=== PATIENT | female | born 1940 | race Asian ===

== ENCOUNTER 2017-01-24 08:51 | Emergency (ER) | payer MEDICARE, MEDICAID ==
[2017-01-24 09:01] VITALS: BP 162/64
--- NOTE | 2017-01-24 10:01 | RAD ---
HISTORY: Cough for 3 weeks COMPARISONS: October 06, 2012 VIEWS: 4: Frontal dual-energy and lateral views of the chest. FINDINGS: CARDIOMEDIASTINAL SILHOUETTE: The aorta is tortuous. The cardiomediastinal silhouette is otherwise unremarkable. ALBA: The alba are normal. PLEURA: The costophrenic angles are sharp. No pleural abnormalities are noted. LUNG PARENCHYMA: The lungs are clear. ABDOMEN: The upper abdomen is clear. There is no subphrenic gas. BONES AND SOFT TISSUES: No bone or soft tissue abnormalities are noted. OTHER: None. IMPRESSION: NO ACTIVE CARDIOPULMONARY DISEASE.
--- NOTE | 2017-01-24 10:10 | UC ---
Respiratory Complaint HPI - HPI Summary HPI Summary: 3 weeks of cough--no fevers chills, night sweats, no sputum, no cp or SOB, no orthopnea - History of Current Complaint Chief Complaint: UCRespiratory Stated Complaint: COUGH Time Seen by Provider: 01/24/17 08:56 Hx Obtained From: Patient, Family/Corporate Aircraft Mechanic ?: No Onset/Duration: Gradual Onset, Lasting Weeks - 3 Timing: Constant Severity Initially: Mild Severity Currently: Mild Pain Intensity: 0 Pain Scale Used: 0-10 Numeric Character: Cough: Nonproductive Aggravating Factors: Nothing Alleviating Factors: Nothing Associated Signs And Symptoms: Positive: URI - Allergies/Home Medications Allergies/Adverse Reactions: Allergies Allergy/AdvReac Type Severity Reaction Status Date / Time No Known Allergies Allergy Verified 01/24/17 08:57 PMH/Surg Hx/FS Hx/Imm Hx Previously Healthy: No Cardiovascular History: Hypertension, Other Other Cardiovascular History: Unsure what kind of valve issue Other History Of: Hepatitis C - Surgical History Surgical History: Yes Surgery Procedure, Year, and Place: CATARACT - Family History Known Family History: Positive: None - Social History Occupation: Retired Lives: With Family Alcohol Use: None Substance Use Type: None Smoking Status (MU): Never Smoked Tobacco Review of Systems Constitutional: Negative Skin: Negative Eyes: Negative ENT: Negative Respiratory: Cough Cardiovascular: Negative Gastrointestinal: Negative Genitourinary: Negative Motor: Negative Neurovascular: Negative Musculoskeletal: Negative Neurological: Negative Psychological: Negative Is Patient Immunocompromised?: No All Other Systems Reviewed And Are Negative: Yes Physical Exam Triage Information Reviewed: Yes Appearance: Well-Appearing, No Pain Distress, Well-Nourished Vital Signs: Initial Vital Signs Temp 97 F 01/24/17 09:00 Pulse 49 01/24/17 09:00 Resp 16 01/24/17 09:00 BP 162/64 01/24/17 09:00 Pulse Ox 100 01/24/17 09:00 Vital Signs Reviewed: Yes Eye Exam: Normal Eyes: Positive: Conjunctiva Clear ENT Exam: Normal ENT: Positive: Normal ENT inspection, Hearing grossly normal, TMs normal. Negative: Nasal congestion, Nasal drainage, Trismus, Muffled/hoarse voice Dental Exam: Normal Neck exam: Normal Neck: Positive: Supple, Nontender, No Lymphadenopathy Respiratory Exam: Normal Respiratory: Positive: Chest non-tender, Lungs clear, Normal breath sounds, No respiratory distress, No accessory muscle use Cardiovascular Exam: Normal Cardiovascular: Positive: Pulses Normal, Brisk Capillary Refill, Bradycardia, Other:. Negative: No Murmur Musculoskeletal Exam: Normal Musculoskeletal: Positive: Strength Intact, ROM Intact, No Edema Neurological Exam: Normal Neurological: Positive: Alert, Muscle Tone Normal Psychological Exam: Normal Skin Exam: Normal UC Diagnostic Evaluation - Laboratory O2 Sat by Pulse Oximetry: 100 - Radiology Xray Interpretation: No Acute Changes Radiology Interpretation Completed By: ED Physician, Radiologist - EKG Cardiac Rate: Bradycardia Cardiac Rhythm: Sinus: Normal Ectopy: None ST Segment: Normal Respiratory Course/Dx - Course Course Of Treatment: rest increase fluids, tessalon, follow with PCP in 2-3 days or to ed should symptoms worsen - Differential Dx/Diagnosis Differential Diagnosis/HQI/PQRI: Bronchitis, CHF, Lower Resp Infection, SARS, Sinusitis Provider Diagnoses: Acute cough Discharge - Discharge Plan Condition: Stable Disposition: HOME Prescriptions: Benzonatate CAP* [Tessalon 100 MG CAP*] 100 mg PO TID PRN #30 cap PRN Reason: Cough Patient Education Materials: Benzonatate (By mouth), Acute Cough (ED) Referrals: Carolina Copeland MD [Primary Care Provider] - 3 Days
== END 2017-01-24 10:28 | disposition home or self-care (01) ==
LOC: UCEAST 08:51
DX: R05 Cough (principal); I10 Essential (primary) hypertension; B19.20 Unspecified viral hepatitis C without hepatic coma
CPT/HCPCS: 71020; 93005; 99212; G0463

== ENCOUNTER 2017-11-16 13:34 | Emergency (ER) | payer MEDICARE, MEDICAID ==
--- OUTSIDE RECORDS SUMMARY | 2017-11-16 13:43 | XMS REPORT ---
:1940 External Reference #:[id number] Author Organization [employer] Address [address] [place] [address] Phone [phone] Care Team Providers Name Role Phone Carolina Copeland MD Primary Care Physician Unavailable Payers Type Date Identification Numbers Payment Provider Subscriber Medicare Primary Effective: Policy Number: [id number] Medicare Ngim Mao 2012 PayID: [id number] [address] [place] [address] [facility] Part [facility] Policy Number: [id number] Medicaid Ngim Mao PayID: [id number] [address] [place] [address] Problems Date Description Provider Status Onset: 09/22/2012 Essential hypertension Meagan Bynum M.D. Active Onset: 01/31/2016 Localized, primary osteoarthritis America Duran M.D. Active Note: knee Onset: 10/21/2016 Osteopenia Carolina Copeland M.D. Active Onset: 10/21/2016 Electrocardiogram abnormal Carolina Copeland M.D. Active Onset: 12/17/2016 Cholelithiasis without obstruction Carolina Copeland M.D. Active Onset: 12/21/2016 Aortic valve regurgitation Carolina Copeland M.D. Active Note: mild to moderate per echo non rheumatic Onset: 03/10/2017 Sleep apnea Carolina Copeland M.D. Active Onset: 06/17/2017 Mixed hyperlipidemia Denys Toney M.D. Active Onset: 09/22/2012 Chronic hepatitis C Meagan Bynum M.D. Inactive Inactive: 10/20/2016 Onset: 09/22/2012 Plantar fascial fibromatosis Meagan Bynum M.D. Inactive Inactive: 10/23/2016 Onset: 09/22/2012 Vaginitis and vulvovaginitis Meagan Bynum M.D. Resolved Resolved: 10/21/2016 Onset: 09/22/2012 Gastroduodenitis Meagan Bynum M.D. Resolved Resolved: 10/23/2016 Family History Date Family Member(s) Problem(s) Comments General Cancer Father due to at age 50 () Mother due to in 2014 () Social History Type Date Description Comments Marital Status Lives With Daughter Lives With Occupation retired Occupation Homemaker Cigarette Use 30 yr ago chewed tabacco Cigarette Use Never Smoked Cigarettes ETOH Use Rarely consumes alcohol Recreational Drug Use Denies Drug Use Smoking Patient has never smoked used to chew tobacco Daily Caffeine Consumes on average 1 cup of Some days regular coffee per day Exercise Type/Frequency Exercises regularly Treadmill 10-15 min./ day, per daughter General Hx Text finished grade 3 Allergies, Adverse Reactions, Alerts Date Description Reaction Status Severity Comments 09/22/2012 NKDA active Medications Medication Date Status Form Strength Qnty SIG Indications Ordering Provider Shingrix 10/25 Active Suspension 50mcg 1unit intramuscular Rec s x 1 then Dinorah, repeat in 4 M.D. months Blood Pressure 04/27 Active Misc 1unit am and pm I10 Meagan s Fletcher Digital/Manual Sylvia Inflate Lisinopril 02/07 Active Tablets 20mg 90tab 1 by mouth in I10 Carolina /2013 s the morning Sylvia Copeland Simvastatin 12/29 Active Tablets 10mg 90tab take 1 tablet E78.2 Carolina /2013 s at bedtime Sylvia Copeland Atenolol 10/06 Active Tablets 50mg 90tab 1 tab by I10 s mouth at brittany Copeland M.D. Vitamin D3 Active 2000Units 1 tablet po Unknown occasional Calcium Active 1 tablet po occasional Sulfamethoxazo Active Tablets 800-160mg 1 by mouth Unknown le/Trimethopri / twice a day m DS Fluconazole Active Tablets 150mg one by mouth may repeat in 3 days as needed Naproxen 06/17 Hx Tablets 375mg 30tab twice a day M25.531 Denys s with food Feng Wilson M.D. 10/25 Meloxicam 06/29 Hx Tablets 15mg 60tab 1 by mouth s every day Steve Duran M.D. 04/02 Meloxicam 11/13 Hx Tablets 7.5mg 90tab 1 by mouth M25.562 Sarthak Sears s once a day Steve Anderson M.D. 01/30 Knee Support 11/13 Hx Misc 2unit as needed dx: M25.562 Carolina W/Stabilizerpa s m25.562 jorgito Copeland/Mark/X-L Steve Ward arge 04/02 Oxybutynin 08/28 Hx Tablets ER 10mg 90tab 1 po qd N39.46 Meagan Chloride /2015 24HR Steve Gar M.D. 10/21 Oxybutynin 03/01 Hx Tablets ER 10mg 90tab 1 po qd N39.46 Meagan Chloride ER /2014 24HR Steve Gar M.D. 08/28 Calcium And 07/06 Hx Meagan Vitamind Wolfgang Bynum M.D. 01/18 Oxybutynin 07/06 Hx Tablets ER 10mg 90tab 1 po qd 788.33 Meagan Chloride /2013 24HR Steve Gar M.D. 02/20 Vesicare 02/24 Hx Tablets 10mg 30tab 1 po qd 788.33 Meagan /2013 Steve Gar M.D. 07/06 Vitamin D3 12/27 Hx Capsules 5000Unit 8caps t tab every Meagan day for 8 Malik Bynum M.D. 07/06 Lisinopril 12/23 Hx Tablets 10mg 30tab 1 po qd 401.9 Meagan /2013 Steve Gar M.D. 02/07 Lisinopril 11/25 Hx Tablets 5mg 30tab 1 po qd 401.9 Steve Gar M.D. 12/23 Oxybutynin 11/25 Hx Tablets ER 10mg 90tab 1 po qd 788.33 Meagan Chloride ER /2012 24HR s Steve Bynum M.D. 02/07 Tessalon 10/06 Hx Capsules 100mg 30cap 1 tab po 3x 786.2 Meagan Perl s per day Steve Bynum M.D. 11/11 Metronidazole 10/06 Hx Gel 0.75% 1tube 1 applicator 616.10 Meagan Vaginal intravaginal Fletcher, - for 7 days M.DMaryellen 11/11 Atenolol 09/22 Hx Tablets 25mg 90tab 1 po qd 401.9 Meagan s Steve Bynum M.D. 10/06 Fluconazole 09/22 Hx Tablets 150mg 2tabs 1 po then 616.10 repeat x1 in Steve Bynum 1week Syvlia 11/11 Metronidazole Hx Tablets 500mg 30tab 1 po tid Unknown /0000 s - 11/[address] 20mg 90cap 1 po qd Unknown /0000 s - 11/11 Avelox Hx Tablets 400mg 90tab 1 po qd Unknown /0000 s - 11/11 Vitamin B 12 00 Hx 1 po Unknown /0000 occasional - 04/02 Ibuprofen 00 Hx Capsules 200mg prn Unknown /0000 - 11/19 Fluconazole 00 Hx Tablets 150mg Unknown /0000 - 08/28 Meloxicam Hx Tablets 15mg 30tab once daily America / s with food Steve Duran M.D. 06/29 Benzonatate Hx Capsules 100mg take 1 Unknown /0000 capsule by - mouth three 02/08 times a day /2017 if needed for cough Oxybutynin Hx Tablets ER 10mg 1 by mouth Unknown Chloride ER / 24HR every day - 02/08 Ketoconazole 00 Hx Cream 2% apply twice a Unknown /0000 day - 02/08 Acetaminophen Hx Tablets 500mg 1-2 tabs 3x a Unknown /0000 day as needed - 02/08 Medications Administered in Office Medication Date Status Form Strength Qnty SIG Indications Ordering Provider Inj, Administered Injection Angelito S. Regadenoson, 017 Salmon, DO 0.1 MG FACC Technetium TC Administered Injection Angelito S. 99M 017 Salmon, DO Tetrofosmin, FACC Per Unit Dose Up To 40 Millicuries Depomedrol Administered Injection America 40MG Tyrone Duran M.D. Depomedrol Administered Injection America 40MG 017 Sylvia Duran Depomedrol Administered Injection America 40MG 016 Sylvia Duran Immunizations CPT Code Status Date Vaccine Lot # [id number] Given 10/21/2016 Tdap - Tetanus/Diptheria/Acellular Pertussis [id number] 04827 Given 10/21/2016 Pneumococcal Conjugate Vaccine 13 Valent For [id number] Intramuscular Use 83068 Given 03/01/2015 Influenza Virus Vaccine, Quadrivalent, Split, [id number] Preservative Free 83271 Given 02/20/2014 Flu Vaccine Split Virus Preservative Free For [id number] Indiv 3Yr Older 83314 Given 07/06/2013 Pneumonia Vaccine [id number] 02393 Given 02/24/2013 Flu Vaccine Split Virus Preservative Free For 1345 4p Indiv 3Yr Older Vital Signs Date Vital Result Comment 10/25/2017 Height 60.2 inches 5'0.20" Weight 171.00 lb Heart Rate 43 /min BP Systolic Sitting 124 mmHg BP Diastolic Sitting 70 mmHg O2 % BldC Oximetry 96 % BMI (Body Mass Index) 33.2 kg/m2 10/13/2017 Height 61 inches 5'1" Weight 176.25 lb Heart Rate 48 /min BP Systolic Sitting 178 mmHg Rue reg cuff BP Diastolic Sitting 110 mmHg Rue reg cuff BP Systolic Recheck 154 mmHg Rue lg cuff BP Diastolic Recheck 90 mmHg Rue lg cuff Respiratory Rate 14 /min O2 % BldC Oximetry 96 % On Ra BMI (Body Mass Index) 33.3 kg/m2 06/17/2017 Height 61 inches 5'1" Weight 173.12 lb Heart Rate 51 /min BP Systolic Sitting 150 mmHg BP Diastolic Sitting 90 mmHg O2 % BldC Oximetry 97 % BMI (Body Mass Index) 32.7 kg/m2 06/09/2017 Height 61 inches 5'1" Weight 175.50 lb no shoes Heart Rate 84 /min BP Systolic Sitting 166 mmHg Lue reg cuff BP Diastolic Sitting 100 mmHg Lue reg cuff Respiratory Rate 20 /min O2 % BldC Oximetry 96 % On Ra BMI (Body Mass Index) 33.2 kg/m2 04/02/2017 Height 61 inches 5'1" Weight 179.12 lb no shoes Heart Rate 58 /min BP Systolic Sitting 158 mmHg Rue reg cuff BP Diastolic Sitting 80 mmHg Rue reg cuff Respiratory Rate 16 /min O2 % BldC Oximetry 96 % On Ra BMI (Body Mass Index) 33.8 kg/m2 02/09/2017 Height 61 inches 5'1" Weight 171.00 lb Heart Rate 64 /min BP Systolic Sitting 116 mmHg BP Diastolic Sitting 80 mmHg Respiratory Rate 14 /min BMI (Body Mass Index) 32.3 kg/m2 Neck Circumference in inches 14 01/19/2017 Height 60 inches 5'0" Weight 171.00 lb with shoes Heart Rate 50 /min BP Systolic 120 mmHg Rue lg cuff BP Diastolic 90 mmHg Rue lg cuff BP Systolic Sitting 120 mmHg Lue lg cuff BP Diastolic Sitting 94 mmHg Lue lg cuff BP Systolic Standing 120 mmHg Lue lg cuff BP Diastolic Standing 80 mmHg Lue lg cuff Respiratory Rate 17 /min BMI (Body Mass Index) 33.4 kg/m2 Ejection Fraction 50-55% date 12/16/16 ECHO 10/21/2016 Height 60 inches 5'0" Weight 171.38 lb Heart Rate 50 /min BP Systolic 138 mmHg BP Diastolic 82 mmHg Body Temperature 98.2 F O2 % BldC Oximetry 99 % BMI (Body Mass Index) 33.5 kg/m2 10/02/2016 Height 60.5 inches 5'0.50" Weight 168.00 lb Heart Rate 59 /min BP Systolic 159 mmHg BP Diastolic 82 mmHg Pain Level 2 BMI (Body Mass Index) 32.3 kg/m2 07/29/2016 Height 60.5 inches 5'0.50" Weight 168.00 lb Heart Rate 50 /min BP Systolic 150 mmHg BP Diastolic 66 mmHg Body Temperature 97.2 F BMI (Body Mass Index) 32.3 kg/m2 06/29/2016 Height 60.5 inches 5'0.50" Weight 168.00 lb Heart Rate 64 /min BP Systolic 128 mmHg BP Diastolic 86 mmHg Respiratory Rate 16 /min Pain Level 5 BMI (Body Mass Index) 32.3 kg/m2 01/31/2016 Height 60.5 inches 5'0.50" Weight 173.00 lb Pain Level 4 BMI (Body Mass Index) 33.2 kg/m2 01/10/2016 Height 60.5 inches 5'0.50" Weight 173.00 lb Pain Level 7 BMI (Body Mass Index) 33.2 kg/m2 12/09/2015 Height 60.5 inches 5'0.50" Weight 173.00 lb Heart Rate 60 /min BP Systolic Sitting 116 mmHg BP Diastolic Sitting 66 mmHg Respiratory Rate 16 /min Pain Level 4 BMI (Body Mass Index) 33.2 kg/m2 11/20/2015 Weight 168.50 lb Heart Rate 61 /min BP Systolic 130 mmHg BP Diastolic 72 mmHg Body Temperature 97.6 F O2 % BldC Oximetry 97 % 11/14/2015 Weight 171.75 lb Heart Rate 51 /min BP Systolic 120 mmHg BP Diastolic 70 mmHg Body Temperature 97.4 F O2 % BldC Oximetry 98 % 08/29/2015 Weight 169.00 lb Heart Rate 49 /min BP Systolic Sitting 150 mmHg BP Diastolic Sitting 80 mmHg Body Temperature 97.4 F O2 % BldC Oximetry 97 % 03/01/2015 Height 60 inches 5'0" Weight 166.00 lb Heart Rate 55 /min BP Systolic 132 mmHg 172/98 on recheck BP Diastolic 90 mmHg 172/98 on recheck Body Temperature 97.2 F O2 % BldC Oximetry 97 % BMI (Body Mass Index) 32.4 kg/m2 08/21/2014 Weight 170.00 lb Heart Rate 57 /min BP Systolic Sitting 138 mmHg BP Diastolic Sitting 88 mmHg Body Temperature 97.6 F O2 % BldC Oximetry 98 % 02/20/2014 Height 59.5 inches 4'11.50" Weight 162.00 lb Heart Rate 64 /min BP Systolic Sitting 112 mmHg BP Diastolic Sitting 66 mmHg Body Temperature 98.7 F BMI (Body Mass Index) 32.2 kg/m2 12/19/2013 Weight 160.50 lb Heart Rate 60 /min BP Systolic Sitting 136 mmHg BP Diastolic Sitting 80 mmHg 10/24/2013 Weight 160.00 lb Heart Rate 66 /min BP Systolic Sitting 130 mmHg BP Diastolic Sitting 80 mmHg 07/06/2013 Weight 166.00 lb Heart Rate 58 /min BP Systolic Sitting 150 mmHg BP Diastolic Sitting 89 mmHg Body Temperature 97.5 F 04/27/2013 Weight 165.00 lb Heart Rate 59 /min BP Systolic Sitting 132 mmHg BP Diastolic Sitting 70 mmHg 02/24/2013 Weight 168.00 lb Heart Rate 60 /min BP Systolic Sitting 186 mmHg BP Diastolic Sitting 85 mmHg BP Systolic Standing 152 mmHg BP Diastolic Standing 83 mmHg 02/07/2013 Weight 165.00 lb Heart Rate 66 /min BP Systolic Sitting 175 mmHg BP Diastolic Sitting 81 mmHg 12/29/2012 Height 60.5 inches 5'0.50" Weight 164.00 lb Heart Rate 54 /min BP Systolic Sitting 140 mmHg BP Diastolic Sitting 76 mmHg BMI (Body Mass Index) 31.5 kg/m2 12/23/2012 Height 60.5 inches 5'0.50" Weight 163.00 lb Heart Rate 76 /min BP Systolic Sitting 151 mmHg BP Diastolic Sitting 77 mmHg BMI (Body Mass Index) 31.3 kg/m2 11/25/2012 Weight 165.75 lb Heart Rate 50 /min BP Systolic 158 mmHg BP Diastolic 79 mmHg 11/11/2012 Weight 164.00 lb Heart Rate 50 /min BP Systolic Sitting 153 mmHg BP Diastolic Sitting 74 mmHg BP Systolic Standing 142 mmHg BP Diastolic Standing 86 mmHg 10/06/2012 Weight 167.00 lb Heart Rate 56 /min BP Systolic Sitting 190 mmHg BP Diastolic Sitting 82 mmHg 09/22/2012 Height 60.5 inches 5'0.50" Weight 165.75 lb Heart Rate 61 /min BP Systolic Sitting 170 mmHg BP Diastolic Sitting 80 mmHg Body Temperature 98.8 F BMI (Body Mass Index) 31.8 kg/m2 Results Test Date Test Result H/L Range Note Order 10/21/2016 EKG <pending> Comp Metabolic Panel 10/21/2016 Sodium 140 mmol/L 133-145 Potassium 4.8 mmol/L 3.5-5.0 Chloride 106 mmol/L 101-111 Co2 Carbon Dioxide 29 mmol/L 22-32 Anion Gap 5 mmol/L 2-11 Glucose 94 mg/dL 70-100 Blood Urea Nitrogen 19 mg/dL 6-24 Creatinine 0.86 mg/dL 0.51-0.95 BUN/Creatinine Ratio 22.1 High 8-20 Calcium 9.3 mg/dL 8.6-10.3 Total Protein 7.2 g/dL 6.4-8.9 Albumin 4.0 g/dL 3.2-5.2 Globulin 3.2 g/dL 2-4 Albumin/Globulin Ratio 1.3 1-3 Total Bilirubin 0.70 mg/dL 0.2-1.0 Alkaline Phosphatase 58 U/L 34-104 Alt 20 U/L 7-52 Ast 26 U/L 13-39 Egfr Non- 64.5 >60 Egfr 83.0 >60 1 CBC Auto Diff 10/21/2016 White Blood Count 7.4 10^3/uL 3.5-10.8 Red Blood Count 4.75 10^6/uL 4.0-5.4 Hemoglobin 12.1 g/dL 12.0-16.0 Hematocrit 38 % 35-47 Mean Corpuscular Volume 80 fL 80-97 Mean Corpuscular Hemoglobin 25 pg Low 27-31 Mean Corpuscular HGB Conc 32 g/dL 31-36 Red Cell Distribution Width 15 % 10.5-15 Platelet Count 169 10^3/uL 150-450 Mean Platelet Volume 10 um3 7.4-10.4 Abs Neutrophils 4.1 10^3/uL 1.5-7.7 Abs Lymphocytes 2.3 10^3/uL 1.0-4.8 Abs Monocytes 0.7 10^3/uL 0-0.8 Abs Eosinophils 0.3 10^3/uL 0-0.6 Abs Basophils 0 10^3/uL 0-0.2 Abs Nucleated RBC 0 10^3/uL Granulocyte % 54.7 % 38-83 Lymphocyte % 31.6 % 25-47 Monocyte % 9.7 % High 1-9 Eosinophil % 3.4 % 0-6 Basophil % 0.6 % 0-2 Nucleated Red Blood Cells % 0.1 Lipid Profile (Trig/Chol/HDL) 10/21/2016 Triglycerides 78 mg/dL 2 Cholesterol 149 mg/dL 3 HDL Cholesterol 54.3 mg/dL 4 LDL Cholesterol 79 mg/dL 5 Laboratory test 10/21/2016 Vitamin D Total 25(Oh) 43.0 ng/mL 30-50 finding Laboratory test 08/06/2015 Gardnerella/Yeast: SEE RESULT BELOW 6 finding Vaginal Dna Lipid Profile 02/27/2015 Triglycerides 66 mg/dL 7, 8 (Trig/Chol/HDL) Cholesterol 156 mg/dL 7, 9 HDL Cholesterol 50.4 mg/dL 7, 10 LDL Cholesterol 92 mg/dL 7, 11 Comp Metabolic Panel 02/27/2015 Sodium 139 mmol/L 133-145 7 Potassium 4.5 mmol/L 3.5-5.0 7 Chloride 105 mmol/L 101-111 7 Co2 Carbon Dioxide 29 mmol/L 22-32 7 Anion Gap 5 mmol/L 2-11 7 Glucose 86 mg/dL 70-100 7 Blood Urea Nitrogen 20 mg/dL 6-24 7 Creatinine 0.79 mg/dL 0.51-0.95 7 BUN/Creatinine Ratio 25.3 High 8-20 7 Calcium 9.0 mg/dL 8.6-10.3 7 Total Protein 7.3 g/dL 6.4-8.9 7 Albumin 4.0 g/dL 3.2-5.2 7 Globulin 3.3 g/dL 2-4 7 Albumin/Globulin Ratio 1.2 1-3 7 Total Bilirubin 0.40 mg/dL 0.2-1.0 7 Alkaline Phosphatase 55 U/L 34-104 7 Alt 15 U/L 7-52 7 Ast 23 U/L 13-39 7 Egfr Non- 71.5 >60 7 Egfr 92.0 >60 7, 12 Laboratory test finding 02/27/2015 Vitamin D Total 25(Oh) 38.6 ng/mL 30- 50 7, 13 Lipid Profile 12/13/2013 Triglycerides 84 mg/dL 14, 15 (Trig/Chol/HDL) Cholesterol 144 mg/dL 14, 16 HDL Cholesterol 47.0 mg/dL 14, 17 LDL Cholesterol 80 mg/dL 14, 18 Comp Metabolic Panel 12/13/2013 Sodium 140 mmol/L 133-145 14 Potassium 4.5 mmol/L 3.7-5.6 14 Chloride 106 mmol/L 101-111 14 Co2 Carbon Dioxide 31 mmol/L 22-32 14 Anion Gap 3 mmol/L 2-11 14 Glucose 96 mg/dL 70-100 14 Blood Urea Nitrogen 21 mg/dL 6-24 14 Creatinine 0.86 mg/dL 0.51-0.95 14 BUN/Creatinine Ratio 24.4 High 8-20 14 Calcium 9.1 mg/dL 8.6-10.3 14 Total Protein 7.2 g/dL 6.4-8.9 14 Albumin 4.0 g/dL 3.2-5.2 14 Globulin 3.2 g/dL 2-4 14 Albumin/Globulin Ratio 1.3 1-3 14 Total Bilirubin 0.50 mg/dL 0.2-1.0 14 Alkaline Phosphatase 52 U/L 34-104 14 Alt 16 U/L 7-52 14 Ast 20 U/L 13-39 14 Egfr Non- 65.0 >60 14 Egfr 83.7 >60 14, 19 Vitamin D, 25 Hydroxy 12/13/2013 25-Hydroxy Vitamin D2 <4.0 ng/mL 14 25-Hydroxy Vitamin D3 36 ng/mL 14 25-Hydroxy Vitamin D Total 36 ng/mL 14, 20 Lipid Profile (Trig/Chol/HDL) 05/09/2013 Triglycerides 66 mg/dL 40-200 Cholesterol 155 mg/dL Less than 200 HDL Cholesterol 47 mg/dL 40-60 21 Cholesterol/HDL Ratio 3.3 Average 1-4.44 LDL Cholesterol 94.8 Less Than 100 22 Hepatitis Acute Panel 05/09/2013 Hepatitis C Antibody Low Reactive Nonreactive 23 Hepatitis A AB IgM Nonreactive Nonreactive 24 Hepatitis B Core IgM Nonreactive Nonreactive 25 Hepatitis B Surface Antigen Nonreactive Nonreactive 26 Laboratory test 05/09/2013 Hepatitis C Rna Undetected IU/mL Undetected 27 finding Quantitative Lipid Profile 12/23/2012 Triglycerides 105 mg/dL 40-200 (Trig/Chol/HDL) Cholesterol 206 mg/dL High Less than 200 HDL Cholesterol 42 mg/dL 40-60 28 Cholesterol/HDL Ratio 4.9 Average High 1-4.44 LDL Cholesterol 143.0 High Less Than 100 29 Laboratory test 12/23/2012 Hepatitis C Rna Undetected IU/mL Undetected 30 finding Quantitative Hepatitis A Antibody Total Positive Negative 31 Vitamin D, 25 Hydroxy 12/23/2012 25-Hydroxy Vitamin D2 <4.0 ng/mL 25-Hydroxy Vitamin D3 25 ng/mL 25-Hydroxy Vitamin D Total 25 ng/mL 32 Urine Culture And Sensitivities 11/25/2012 Urine Culture (SEE NOTE) 33 Ua Routine 11/25/2012 Ua Specific [place] 1.010 Ua PH 5 Ua Color dark yellow Ua Appera clear Ua WBC trace Ua Protein trace Ua Glucose negative Ua Ketones negative Ua Bilirubin negative Ua Urobilinogen negative Ua Nitrite negative Ua Occult Blood positive Laboratory test 11/08/2012 Hepatitis C Rna Undetected IU/mL Undetected 34 finding Quantitative CBC Auto Diff 11/08/2012 White Blood Count 5.2 10^3/uL 4.8-10.8 Red Blood Count 4.79 10^6/uL 4.0-5.4 Hemoglobin 12.2 g/dL 12.0-16.0 Hematocrit 38 % 35-47 Mean Corpuscular Volume 79 fL Low 80-97 Mean Corpuscular Hemoglobin 26 pg Low 27-31 Mean Corpuscular HGB Conc 32 g/dL 31-36 Red Cell Distribution Width 15 % 10.5-15 Platelet Count 187 10^3/uL 150-450 Mean Platelet Volume 9 um3 7.4-10.4 Abs Neutrophils 2.5 10^3/uL 1.5-7.7 Abs Lymphocytes 1.8 10^3/uL 1.0-4.8 Abs Monocytes 0.6 10^3/uL 0-0.8 Abs Eosinophils 0.3 10^3/uL 0-0.6 Abs Basophils 0 10^3/uL 0-0.2 Abs Nucleated RBC 0 10^3/uL Granulocyte % 48.3 % 38-83 Lymphocyte % 34.8 % 25-47 Monocyte % 10.9 % High 1-9 Eosinophil % 5.3 % 0-6 Basophil % 0.7 % 0-2 Nucleated Red Blood Cells % 0.1 Laboratory test 11/08/2012 TSH (Thyroid Stimulating 4.90 miu/mL 0.34- 5.60 35 finding Horm) Lipid Profile 11/08/2012 Triglycerides 77 mg/dL 40-200 (Trig/Chol/HDL) Cholesterol 195 mg/dL Less than 200 HDL Cholesterol 41 mg/dL 40-60 36 Cholesterol/HDL Ratio 4.8 Average High 1-4.44 LDL Cholesterol 138.6 High Less Than 100 37 Comp Metabolic Panel 11/08/2012 Sodium 139 mmol/L 133-145 Potassium 5.1 mmol/L High 3.5-5.0 Chloride 107 mmol/L 101-111 Co2 Carbon Dioxide 27.0 mmol/L 22-32 Anion Gap 5.0 mmol/L 2-11 Glucose 99 mg/dL 70-100 Blood Urea Nitrogen 20 mg/dL 6-24 Creatinine 0.80 mg/dL 0.50-1.40 BUN/Creatinine Ratio 25.0 High 8-20 Calcium 9.1 mg/dL 8.1-9.9 Total Protein 7.2 g/dL 6.2-8.1 Albumin 3.6 g/dL 3.2-5.2 Globulin 3.6 g/dL 2-4 Albumin/Globulin Ratio 1.0 1-3 Total Bilirubin 0.8 mg/dL 0.4-1.5 Alkaline Phosphatase 61 U/L 30-110 Alt 19 U/L 14-54 Ast 22 U/L 12-42 Egfr Non- 70.9 >60 Egfr 91.2 >60 38 Ua Routine 09/22/2012 Ua Specific [place] 1.015 Ua PH 5 Ua Color dark yellow Ua Appera clear Ua WBC trace Ua Protein neg Ua Glucose neg Ua Ketones neg Ua Bilirubin neg Ua Urobilinogen neg Ua Nitrite neg Ua Occult Blood neg Urine Culture And Sensitivities 09/22/2012 Urine Culture (SEE NOTE) 39 1 Because ethnic data is not always readily available, this report includes an eGFR for both -Americans and non- Americans. The National Kidney Disease Education Program (NKDEP) does not endorse the use of the MDRD equation for patients that are not between the ages of 18 and 70, are , have extremes of body size, muscle mass, or nutritional status, or are non- or non-. According to the National Kidney Foundation, irrespective of diagnosis, the stage of the disease is based on the level of kidney function: Stage Description GFR(mL/min/1.73 m(2)) 1 Kidney damage with normal or decreased GFR 90 2 Kidney damage with mild decrease in GFR 60-89 3 Moderate decrease in GFR 30-59 4 Severe decrease in GFR 15-29 5 Kidney failure <15 (or dialysis) 2 Desirable <150 Borderline high 150-199 High 200-499 Very High >500 3 Desirable <200 Borderline high 200-239 High >239 4 Low <40 Desirable: 40-60 High: >60 5 Desirable: <100 mg/dL Near Optimal: 100-129 mg/dL Borderline High: 130-159 mg/dL High: 160-189 mg/dL Very High: >189 mg/dL 6 SEE RESULT BELOW Name: ANDREW SIMS : [address]: Jaren Hernandez MD Acct: [id number] Unit: [id number] AGE: 74 Location: [facility] Re08/06/15 SEX: F Status: DEP ER SPEC: [id number] ASHLEY: 08/06/15-[address] [facility] [address]: Jaren Hernandez MD REQ: [id number] RECD: 08/07/15 STATUS: PATRICK NO DR: Meagan Bynum MD _ SOURCE: VAGINAL SPDESC: ORDERED: Nacho,Yeast DNA, Trich DNA Procedure Result Reported Site Gardnerella/Yeast: Vaginal DNA Final 08/07/15- 1405 ML Organism 1 Negative Gardnerella Organism 2 Negative Sumaya The presence of G. vaginalis, although suggestive, is not diagnostic for bacterial vaginosis. Results should be interpreted in conjuction with other clinical and laboratory data available. Women with vaginal discharge should be evaluated for risk factors of cervicitis and pelvic inflammatory disease, toxic shock syndrome (S.aureus), and if present, evaluated for organisms not included in this assay such as N. gonorrhoeae, C. trachomatis, Mobiluncus, Mycoplasma and/or Prevotella. Mixed infections may occur. The performance of this test on patient specimens collected during or immediately after antimicrobial therapy is unknown. The presence or absence of Sumaya species, or G. vaginalis cannot be used as a test for therapeutic success or failure. Trichomonas: Vaginal DNA Probe Final 08/07/15- 1405 ML Organism 1 Negative Trichomonas CONTINUED ON NEXT PAGE * ML=Testing performed at [facility] DEPARTMENT OF PATHOLOGY, [address] [place] [address] Panfilo Somers M.D. Director [facility] # [id number] Patient: ANDREW SIMS [id number] (Continued) Specimen: [id number] Collected: 08/06/15 Received: 08/07/15-1132 (Continued) Procedure Result Reported Site Trichomonas: Vaginal DNA Probe Final (continued) 08/07/15- 1405 The presence or absence of T. vaginalis cannot be used as a test for therapeutic success or failure. * ML - MAIN LAB ([facility]) . END OF REPORT * ML=Testing performed at Main Lab DEPARTMENT OF PATHOLOGY, [address] [place] [address] Panfilo Somers M.D. Director [facility] # [id number] 7 PT IS FASTING 8 Desirable <150 Borderline high 150-199 High 200-499 Very High >500 9 Desirable <200 Borderline high 200-239 High >239 10 Low <40 Desirable: 40-60 High: >60 11 Desirable: <100 mg/dL Near Optimal: 100-129 mg/dL Borderline High: 130-159 mg/dL High: 160-189 mg/dL Very High: >189 mg/dL 12 Because ethnic data is not always readily available, this report includes an eGFR for both -Americans and non- Americans. The National Kidney Disease Education Program (NKDEP) does not endorse the use of the MDRD equation for patients that are not between the ages of 18 and 70, are , have extremes of body size, muscle mass, or nutritional status, or are non- or non-. According to the National Kidney Foundation, irrespective of diagnosis, the stage of the disease is based on the level of kidney function: Stage Description GFR(mL/min/1.73 m(2)) 1 Kidney damage with normal or decreased GFR 90 2 Kidney damage with mild decrease in GFR 60-89 3 Moderate decrease in GFR 30-59 4 Severe decrease in GFR 15-29 5 Kidney failure <15 (or dialysis) 13 PT IS FASTING 14 FASTING 15 Desirable <150 Borderline high 150-199 High 200-499 Very High >500 16 Desirable <200 Borderline high 200-239 High >239 17 Low <40 Desirable: 40-60 High: >60 18 Desirable <100 Near Optimal 100-129 Borderline high 130-159 High 160-189 Very High >189 19 Because ethnic data is not always readily available, this report includes an eGFR for both -Americans and non- Americans. The National Kidney Disease Education Program (NKDEP) does not endorse the use of the MDRD equation for patients that are not between the ages of 18 and 70, are , have extremes of body size, muscle mass, or nutritional status, or are non- or non-. According to the National Kidney Foundation, irrespective of diagnosis, the stage of the disease is based on the level of kidney function: Stage Description GFR(mL/min/1.73 m(2)) 1 Kidney damage with normal or decreased GFR 90 2 Kidney damage with mild decrease in GFR 60-89 3 Moderate decrease in GFR 30-59 4 Severe decrease in GFR 15-29 5 Kidney failure <15 (or dialysis) 20 -- REFERENCE VALUE -- 25-HYDROXY D TOTAL (D2+D3) Optimum levels in the healthy population are 20-50, patients with bone disease may benefit from higher levels within this range. Test Performed by: [facility] [address] [address] [employer] Carrier Operations Inspector: Eulalio Guillen III, M.D. 21 HDL Interpretation: Undesirable: High Risk: Less than 40 mg/dL Desirable: Low Risk: Greater than 60 mg/dL 22 LDL Interpretation: Low Risk Optimal Level: LDL Less than 100 mg/dL Near or Above Optimal: LDL 100-129 mg/dL Borderline High Risk: LDL 130-159 mg/dL High Risk: LDL 160-189 mg/dL Very High Risk: LDL Greater than 189 mg/dL 23 Low reactive results are indeterminate. This sample has been reflexed for additional testing. 24 FASTING 10 HOUR 25 FASTING 10 HOUR 26 FASTING 10 HOUR 27 Result in log IU/mL is Undetected. The quantification range of this assay is 15 to 100,000,000 IU/mL (1.18 log to 8.00 log IU/mL). Testing was performed by the IMAN AmpliPrep/IMAN TaqMan HCV Test, version 2.0 ([employer] Test Performed by: [place] [address] [employer] Car[employer] Operations Inspector: Eulalio Guillen III, M.D. 28 HDL Interpretation: Undesirable: High Risk: Less than 40 mg/dL Desirable: Low Risk: Greater than 60 mg/dL 29 LDL Interpretation: Low Risk Optimal Level: LDL Less than 100 mg/dL Near or Above Optimal: LDL 100-129 mg/dL Borderline High Risk: LDL 130-159 mg/dL High Risk: LDL 160-189 mg/dL Very High Risk: LDL Greater than 189 mg/dL 30 Result in log IU/mL is Undetected. The quantification range of this assay is 43 IU/mL to 69,000,000 IU/mL (1.63 log IU/mL to 7.84 log IU/mL). Testing was performed by the IMAN AmpliPrep/IMAN TaqMan HCV Test ([employer] Test Performed by: [place] [address] [employer] Operations Inspector: Eulalio Guillen III, M.D. 31 Test Performed by: [place] [address] [employer] Inspector: Euallio Guillen III, M.D. 32 -- REFERENCE VALUE -- 25-HYDROXY D TOTAL (D2+D3) Optimum levels in the normal population are 25-80 Test Performed by: [place] [address] [employer] Inspector: Eulalio Guillen III, M.D. 33 RUN DATE: 11/27/12 [facility] LAB LIVE PAGE 1 RUN TIME: [address] [place] [address] Specimen Inquiry Name: ANDREW SIMS : [address]: Meagan Bynum MD Acct: [id number] Unit: [id number] AGE: 72 Location: [facility] Re11/25/12 SEX: F Status: REG REF SPEC: [id number] ASHLEY: 11/25/12-[address]: Meagan Bynum MD REQ: [id number] RECD: 11/25/12270 STATUS: COMP _ SOURCE: URINE SPDESC: ORDERED: Urine Culture QUERIES: Medent Number [id number] Procedure Result Verified Site Urine Culture Final 11/27/12- 1012 ML Organism 1 STREP GROUP B [place] Count 10-25,000 (Moderate) CFU/ML Susceptibility testing of penicillins and other B-lactams approved by FDA for treatment of Streptococcus pyogenes (Group A Strep) and Streptococcus agalactiae (Group B Strep) is not necessary for clinical purposes and need not be done routinely, since as with vancomycin, resistant strains have not been recognized. (CLSI U324-L12;p.66) Positive isolates will be saved for one week. Please call the Microbiology Laboratory if further susceptibility testing is needed. END OF REPORT * ML=Testing performed at Main Lab DEPARTMENT OF PATHOLOGY, [address] [place] [address] Panfilo Somers M.D. Director [facility] Permit #[id number] 34 Result in log IU/mL is Undetected. The quantification range of this assay is 43 IU/mL to 69,000,000 IU/mL (1.63 log IU/mL to 7.84 log IU/mL). Testing was performed by the IMAN AmpliPrep/IMAN TaqMan HCV Test ([employer] Test Performed by: [address] [address] [employer] Operations Inspector: Eulalio Guillen III, M.D. 35 FASTING 36 HDL Interpretation: Undesirable: High Risk: Less than 40 mg/dL Desirable: Low Risk: Greater than 60 mg/dL 37 LDL Interpretation: Low Risk Optimal Level: LDL Less than 100 mg/dL Near or Above Optimal: LDL 100-129 mg/dL Borderline High Risk: LDL 130-159 mg/dL High Risk: LDL 160-189 mg/dL Very High Risk: LDL Greater than 189 mg/dL 38 Because ethnic data is not always readily available, this report includes an eGFR for both -Americans and non- Americans. The National Kidney Disease Education Program (NKDEP) does not endorse the use of the MDRD equation for patients that are not between the ages of 18 and 70, are , have extremes of body size, muscle mass, or nutritional status, or are non- or non-. According to the National Kidney Foundation, irrespective of diagnosis, the stage of the disease is based on the level of kidney function: Stage Description GFR(mL/min/1.73 m(2)) 1 Kidney damage with normal or decreased GFR 90 2 Kidney damage with mild decrease in GFR 60-89 3 Moderate decrease in GFR 30-59 4 Severe decrease in GFR 15-29 5 Kidney failure <15 (or dialysis) 39 RUN DATE: 09/24/12 [facility] LAB LIVE PAGE 1 RUN TIME: [address] [place] [address] Specimen Inquiry Name: ANDREW SIMS : [address]: Meagan Bynum MD Acct: [id number] Unit: [id number] AGE: 71 Location: [facility] Re09/22/12 SEX: F Status: REG REF SPEC: [id number] ASHLEY: 09/22/12-[address]: Meagan Bynum MD REQ: [id number] RECD: 09/22/12 STATUS: COMP _ SOURCE: URINE SPDESC: ORDERED: Urine Culture QUERIES: Medent Number [id number] Procedure Result Verified Site Urine Culture Final 09/24/12- 1037 ML No Growth Day 2 (<1,000 CFU/mL) END OF REPORT * ML=Testing performed at Main Lab DEPARTMENT OF PATHOLOGY, [address] [place] [address] Panfilo Somers M.D. Director [facility] Permit #[id number] Procedures Date CPT Code Description Status Comment 09/21/2017 Colonoscopy Completed 03/04/2017 13125 Polysomnography Sleep Staging 4+ Completed Parameters 02/03/2017 55698 Stress Test Completed 02/03/2017 58679 Myocardial Perfusion Imaging Completed Tomographic (Spect) Multiple Studies 01/19/2017 00812 EKG Tracing & Interpretation Completed 12/16/2016 11834 ECHO Transthorasic Realtime 2D W Completed Doppler & Color Flow Hosp 12/16/2016 Mammogram Completed 12/16/2016 Bone Mineral Density Test Completed 10/21/2016 17157 EKG Tracing & Interpretation Completed 06/29/201678812 Inject/Drain Joint/Bursa Major W/O Completed US 01/10/2016 Inject/Drain Joint/Bursa Major W/O Completed US 03/28/2015 Bone Mineral Density Test Completed 03/28/2015 Mammogram Completed 03/07/2014 Mammogram Completed 03/02/2013 Mammogram Completed 03/02/2013 Bone Mineral Density Test Completed 12/29/2012 93638 EKG Tracing & Interpretation Completed 07/26/2007 Colonoscopy Completed 11/24/2004 Colonoscopy Completed next due in 2018 Encounters Type Date Location Provider CPT E/M Dx Office Visit 10/13/2017 Pulmonology And Sleep Tati Garcia, [address] G47.33 8:15a [facility] NAOMI, RN, CRM SOLUTION ARCHITECT-BC E66.9 Z68.33 Office Visit 06/17/2017 10:00a [facility] Internal Medicine Denys Toney M.D. [address] E78.2 M25.531 Office Visit 06/09/2017 11:00a [facility] Tati Garcia [address]67 G47.33 [facility] JESSICA SALGADO, CRM SOLUTION ARCHITECT-RICKI Z68.33 Office Visit 04/02/2017 9:00a [facility] Tati Garcia 10318 G47.33 [facility] JESSICA SALGADO, CRM SOLUTION ARCHITECT-RICKI G47.14 Office Visit 02/09/2017 8:00a [facility] [place] [address] R06.83 [facility] Office Visit 01/19/2017 9:00a [facility] Sal[facility], [address]93 I35.1 [facility] DO [facility] I10 R07.9 I34.0 E78.5 Office Visit 10/21/2016 8:50a [facility] Internal Medicine Carolina Copeland, 88155 Z00.01 Steve Reed M.D. I10 Z23 E78.2 Z12.31 R94.31 G47.30 Z86.19 M85.89 Office Visit 10/02/2016 9:30a [facility] Duran M.D. 98317 M25.561 C.M.A. M25.562 M25.462 M25.461 M17.0 Office Visit 07/29/2016 10:15a [facility] Duran M.D. 41224 M25.561 C.M.A. M25.562 M25.462 M25.461 M17.0 Office Visit 06/29/2016 10:30a [facility] Duran M.D. 47847 M25.561 C.M.A. M25.562 M25.462 M25.461 M17.0 Office Visit 01/31/2016 11:00a [facility] Duran M.D. 01208 M17.12 C.M.A. M25.562 M25.462 Office Visit 12/09/2015 8:30a [facility] Duran M.D. 06431 M17.12 C.M.A. Office Visit 11/20/2015 2:00p [facility] Internal Medicine Carolina Copeland [address]50 M25.562 - [facility] Office Visit 11/14/2015 8:40a [facility] Internal Medicine Meagan Bynum 50569 M25.562 - [place] [facility] Office Visit 08/29/2015 7:40a [facility] Internal Medicine Meagan Bynum 87501 I10 - [place] N39.46 E78.2 Office Visit 08/21/2014 4:00p [facility] Internal Medicine Meagan Bynum M.D. 17410 401.9 - New Site 724.2 919.1 Office Visit 12/19/2013 4:00p [facility] Internal Medicine Meagan Bynum M.D. 77223 401.9 - New Site 272.2 268.9 Office Visit 10/24/2013 3:40p [facility] Internal Medicine Meagan Bynum M.D. 55907 401.9 - New Site 272.2 268.9 724.2 Office Visit 07/06/2013 3:00p [facility] Internal Medicine Meagan Bynum M.D. 36749 272.2 - New Site 401.9 V03.82 Office Visit 04/27/2013 11:00a [facility] Internal Medicine Meagan Bynum M.D. 25924 401.9 - [place] Site 272.2 728.71 373.31 Office Visit 02/24/2013 8:40a [facility] Internal Medicine Meagan Bynum M.D. 58341 401.9 - New Site 272.2 788.33 V76.19 627.9 V04.81 Office Visit 02/07/2013 4:00p [facility] Internal Medicine Meagan Bynum M.D. 00785 401.9 - New Site 728.71 Office Visit 12/29/2012 1:00p [facility] Internal Medicine Meagan Bynum M.D. 97371 V72.81 - New Site V72.81 401.9 401.9 728.71 728.71 786.2 272.2 Office Visit 11/25/2012 8:40a [facility] Internal Medicine Meagan Bynum M.D. 14816 401.9 - New Site 368.12 788.33 Office Visit 11/11/2012 8:40a [facility] Internal Medicine Meagan Bynum M.D. 62353 401.9 - New Site 728.71 Office Visit 10/06/2012 9:40a [facility] Internal Medicine Meagan Bynum M.D. 12609 401.9 - New Site 786.2 616.10 Office Visit 09/22/2012 11:20a [facility] Internal Medicine Meagan Bynum M.D. 49521 599.0 - New Site 728.71 401.9 535.50 070.54 616.10 Plan of Care Future Appointment(s):11/23/2017 8:30 am - Carolina Copeland M.D. at [facility] Internal Medicine - Jkoathmcz62/12/2018 9:30 am - Tati Garcia DNP, RN, CRM SOLUTION ARCHITECT -BC at [facility]10/25/2017 - Carolina Copeland M.D.Z00.00 Encntr for general adult medical exam w/o abnormal findingsComments: self breast exams, due for mammogramcolonoscopy is up to date, you might not need a repeat one we discussed shingles vaccine that you can get at the pharmacy , flu vaccine in the fallI10 Essential (primary) odoonisqpalyB62.2 Mixed hyperlipidemiaNew Labs:Lipid Profile (Trig/Chol/HDL)Comp Metabolic PanelComments:You are due for fasting blood work todayGoals:Exercising 30 minutes 5 times a week will help raise HDL (good cholesterol) and lower LDL ( bad cholesterol.) You need to lose 1-2 pounds per month to move towards a BMI ( body mass index) of less than 25.Z12.31 Encntr screen mammogram for malignant neoplasm of breastNew Xrays:Mammogram Screening BilR53.83 Other fatigueNew Labs: TSH (Thyroid Stim Horm)HIV 1&2 AB Self ReferredCBC Auto DiffComments:likely from not sleeping well as you are not using the CPAP , please contact sleep clinic for a better fitting maskR05 CoughComments:as per your report the cough is getting better this week , if it persists please let me knowM85.89 Oth disrd of bone density and structure, multiple sitesNew Labs:Vitamin D Total 25(Oh)New Xrays:Dexa Screen Lumbar (Hips)Follow up:4 wks to review labs and DEXA , please arrange gdencimuuawR11.91 Cutaneous abscess, unspecifiedComments:finish the antibiotic as prescribed, keep the area clean
[2017-11-16 14:23] VITALS: BP 141/90
--- NOTE | 2017-11-16 15:04 | ED ---
Shortness of Breath - HPI Summary HPI Summary: This is miriam Richter documenting for attending Dony Coello MD. This patient is a 77 year old F presenting to [facility] accompanied by her daughter with a chief complaint of SOB since a few days ago. She noticed that she couldn t finish cooking because of difficulty breathing and weakness. The patient rates the pain 4/10 in severity. Symptoms aggravated by exertion. Patient reports heartburn, SOB, LE edema, and difficulty walking. Patient denies CP. PMHX leaking heart valve, CAD, and HLD. - History of Current Complaint Chief Complaint: UCGeneralIllness Time Seen by Provider: 11/16/17 14:37 Hx Obtained From: Patient, Family/Compensation Analyst, Press Tender Smoke Signal - daughter Onset/Duration: Sudden Onset, Lasting Days - 3 Timing: Constant Current Severity: Moderate Dyspnea At: Exertion Aggrevating Factors: Movement Associated Signs & Symptoms: Dizzy, Edema - LE - Allergy/Home Medications Allergies/Adverse Reactions: Allergies Allergy/AdvReac Type Severity Reaction Status Date / Time No Known Allergies Allergy Verified 11/16/17 14:22 PMH/Surg Hx/FS Hx/Imm Hx Endocrine/Hematology History: Denies: Hx Diabetes, Hx Thyroid Disease Cardiovascular History: Reports: Hx Coronary Artery Disease - cholesterol control with meds, Hx Hypertension - on meds Denies: Hx Congestive Heart Failure, Hx Pacemaker/ICD Comment Only: Other Cardiovascular Problems/Disorders - VALVE ISSUES Respiratory History: Reports: Other Respiratory Problems/Disorders - pleurisy Denies: Hx Asthma, Hx Chronic Obstructive Pulmonary Disease (COPD) GI History: Reports: Other GI Disorders - frequent stools Denies: Hx Ulcer History: Denies: Hx Dialysis, Hx Renal Disease Musculoskeletal History: Reports: Hx Arthritis - ankles, lower back Denies: Hx Osteoporosis Sensory History: Reports: Hx Cataracts - bilateral, Hx Contacts or Glasses - reading glasses, Hx Hearing Aid - DOES NOT WEAR Opthamlomology History: Reports: Hx Cataracts - bilateral, Hx Contacts or Glasses - reading glasses Psychiatric History: Denies: Hx Panic Disorder - Cancer History Hx Chemotherapy: No Hx Radiation Therapy: No - Surgical History Surgery Procedure, Year, and Place: CATARACT Infectious Disease History: No Infectious Disease History: Denies: Hx Clostridium Difficile, Hx Hepatitis, Hx Human Immunodeficiency Virus (HIV), Hx of Known/Suspected MRSA, Hx Shingles, Hx Tuberculosis, Hx Known/ Suspected VRE, Hx Known/Suspected VRSA, History Other Infectious Disease, Traveled Outside the [place] in Last 30 Days - Family History Known Family History: Negative: Hypertension - Social History Alcohol Use: None Substance Use Type: Reports: None Smoking Status (MU): Never Smoked Tobacco Review of Systems Negative: Chest Pain Positive: Shortness Of Breath. Negative: Cough Positive: Other - Heartburn Positive: Edema - LE, Other - Difficulty walking All Other Systems Reviewed And Are Negative: Yes Physical Exam - Summary Physical Exam Summary: General: well-appearing, no acute distress Skin: warm, color reflects adequate perfusion, dry Head: normal Eyes: EOMI, RACHEL ENT: normal Neck: supple, nontender Respiratory: CTA, breath sounds present. Crackles at the bases. Cardiovascular: Tachycardic. Irregularly irregular rhythm. Abdomen: soft, nontender Bowel: present Musculoskeletal: Strength/ROM intact. Bilateral pedal edema. Neurological: sensory/motor intact, A&O x3 Psychological: affect/mood appropriate Triage Information Reviewed: Yes Vital Signs On Initial Exam: Initial Vitals Temp Pulse Resp BP Pulse Ox 96.7 F 119 16 141/90 100 11/16/17 14:17 11/16/17 14:17 11/16/17 14:17 11/16/17 14:17 11/16/17 14:17 Vital Signs Reviewed: Yes Diagnostics - Vital Signs Vital Signs Temp Pulse Resp BP Pulse Ox 11/16/17 14:17 96.7 F 119 16 141/90 100 - Laboratory Lab Statement: Any lab studies that have been ordered have been reviewed, and results considered in the medical decision making process. - EKG 14:30 Cardiac Rate: Tachycardia - 120 bpm EKG Rhythm: Atrial Fibrillation EKG Interpretation: Probable LVH Course/Dx - Course Course Of Treatment: DISCUSSED SYMPTOMATIC NEW ONSET RAPID ATRIAL FIBRILLATION AND THE NEED FOR FURTHER EVALUATION AND TREATMENT IN THE EMERGENCY DEPARTMENT. THE PATIENT AND HER DAUGHTER DECLINED TRANSPORT BY AMBULANCE. I SPOKE WITH THE CHARGE NURSE IN THE ED. - Diagnoses Provider Diagnoses: New onset a-fib, Dyspnea Discharge - Sign-Out/Discharge Documenting (check all that apply): Patient Departure - Discharge Plan Condition: Stable Disposition: HOME-RECOMMEND TO ED Patient Education Materials: A-fib (Atrial Fibrillation) (ED), Shortness of Breath (ED) Referrals: Carolina Copeland MD [Primary Care Provider] - Additional Instructions: GO DIRECTLY TO THE EMERGENCY DEPARTMENT FOR FURTHER EVALUATION AND TREATMENT OF YOUR ATRIAL FIBRILLATION AND SHORTNESS. OF BREATH - Billing Disposition and Condition Condition: STABLE Disposition: Home-Recommend to ED
== END 2017-11-16 15:00 | disposition home health service (06) ==
LOC: UCEAST 13:34
DX: I48.91 Unspecified atrial fibrillation (principal); R06.00 Dyspnea, unspecified; I10 Essential (primary) hypertension
CPT/HCPCS: 93005; 99212; G0463

== ENCOUNTER 2017-11-16 15:19 | Inpatient (IN) | payer MEDICARE, MEDICAID ==
[2017-11-16] MEDS ORDERED: NS 0.9% 1000 ML* 1,000 ML IV ONE (16:08)
[2017-11-16] MEDS ORDERED: Diltiazem IV* 5 MG/ML 5 ML VIAL (for loading dose/IV Push) (25 MG) IV PUSH ONE (16:08)
--- NOTE | 2017-11-16 16:11 | ED ---
Shortness of Breath - HPI Summary HPI Summary: 77 y/o female presents to the ED c/o constant SOB for the past couple of days. Pt also c/o ABD pressure. Facial and LE edema noticed by pt's daughter for the past week. PMHx leaky valve last year. No PMHx AFIB. No blood thinner. PMHx HTN , HLD. Sx not aggravated or alleviated by anything. This is scribe Ed Chela documenting for attending Sarthak Fabian MD - History of Current Complaint Chief Complaint: EDShortnessOfBreath Time Seen by Provider: 11/16/17 15:59 Hx Obtained From: Patient Onset/Duration: Lasting Days Dyspnea At: Rest Aggrevating Factors: Nothing Alleviating Factors: Nothing Associated Signs & Symptoms: Edema - Allergy/Home Medications Allergies/Adverse Reactions: Allergies Allergy/AdvReac Type Severity Reaction Status Date / Time No Known Allergies Allergy Verified 11/16/17 14:22 Home Medications: Home Medications Atenolol TAB* [Tenormin TAB* 50 MG] 50 mg PO BEDTIME 11/16/17 [History Confirmed 11/16/17] Calcium Carbonate/Vitamin D3 [Calcium/Vitamin D] 1 cap PO DAILY 11/16/17 [ History Confirmed 11/16/17] Cholecalciferol (Vitamin D3) [Vitamin D3] 2,000 unit PO DAILY 11/16/17 [History Confirmed 11/16/17] PMH/Surg Hx/FS Hx/Imm Hx Previously Healthy: No Endocrine/Hematology History: Denies: Hx Diabetes, Hx Thyroid Disease Cardiovascular History: Reports: Hx Coronary Artery Disease - cholesterol control with meds, Hx Hypertension - on meds Denies: Hx Congestive Heart Failure, Hx Pacemaker/ICD Comment Only: Other Cardiovascular Problems/Disorders - VALVE ISSUES Respiratory History: Reports: Other Respiratory Problems/Disorders - pleurisy Denies: Hx Asthma, Hx Chronic Obstructive Pulmonary Disease (COPD) GI History: Reports: Other GI Disorders - frequent stools Denies: Hx Ulcer History: Denies: Hx Dialysis, Hx Renal Disease Musculoskeletal History: Reports: Hx Arthritis - ankles, lower back Denies: Hx Osteoporosis Sensory History: Reports: Hx Cataracts - bilateral, Hx Contacts or Glasses - reading glasses, Hx Hearing Aid - DOES NOT WEAR Opthamlomology History: Reports: Hx Cataracts - bilateral, Hx Contacts or Glasses - reading glasses Psychiatric History: Denies: Hx Panic Disorder - Cancer History Hx Chemotherapy: No Hx Radiation Therapy: No - Surgical History Surgery Procedure, Year, and Place: CATARACT Infectious Disease History: No Infectious Disease History: Denies: Hx Clostridium Difficile, Hx Hepatitis, Hx Human Immunodeficiency Virus (HIV), Hx of Known/Suspected MRSA, Hx Shingles, Hx Tuberculosis, Hx Known/ Suspected VRE, Hx Known/Suspected VRSA, History Other Infectious Disease, Traveled Outside the [place] in Last 30 Days - Family History Known Family History: Positive: None Negative: Hypertension - Social History Alcohol Use: None Substance Use Type: Reports: None Smoking Status (MU): Never Smoked Tobacco Review of Systems Constitutional: Negative Eyes: Negative ENT: Negative Cardiovascular: Negative Positive: Shortness Of Breath Positive: Abdominal Pain Genitourinary: Negative Positive: Edema Skin: Negative Neurological: Negative Psychological: Normal All Other Systems Reviewed And Are Negative: Yes Physical Exam - Summary Physical Exam Summary: VITAL SIGNS: Reviewed. GENERAL: Patient is a well-developed and obese female who is lying comfortable in the stretcher. Patient is not in any acute respiratory distress. HEAD AND FACE: No signs of trauma. No ecchymosis, hematomas or skull depressions. No sinus tenderness. EYES: PERRLA, EOMI x 2, No injected conjunctiva, no nystagmus. EARS: Hearing grossly intact. Ear canals and tympanic membranes are within normal limits. MOUTH: Oropharynx within normal limits. NECK: Supple, trachea is midline, no adenopathy, no JVD, no carotid bruit, no c- spine tenderness, neck with full ROM. CHEST: Symmetric, no tenderness at palpation LUNGS: Clear to auscultation bilaterally. No wheezing or crackles. CVS: Irregular rate and rhythm @ 120 BPM, S1 and S2 present, no murmurs or gallops appreciated. ABDOMEN: Soft, non-tender. No signs of distention. No rebound no guarding, and no masses palpated. Bowel sounds are normal. EXTREMITIES: FROM in all major joints, no edema, no cyanosis or clubbing. NEURO: Alert and oriented x 3. No acute neurological deficits. Speech is normal and follows commands. SKIN: Dry and warm Triage Information Reviewed: Yes Vital Signs On Initial Exam: Initial Vitals Temp Pulse Resp BP Pulse Ox 97.4 F 125 16 122/96 98 11/16/17 15:29 11/16/17 15:29 07/24/18 15:29 11/16/17 15:29 11/16/17 15:29 Vital Signs Reviewed: Yes Diagnostics - Vital Signs Vital Signs Temp Pulse Resp BP Pulse Ox 11/16/17 15:29 97.4 F 125 16 122/96 98 - Laboratory Result Diagrams: 11/16/17 17:14 11/16/17 17:14 Lab Statement: Any lab studies that have been ordered have been reviewed, and results considered in the medical decision making process. - Radiology CXR Xray Interpretation: Positive (See Comments) - SMALL RIGHT BASILAR INFILTRATE Radiology Interpretation Completed By: Radiologist - Additional Comments Diagnostic Additional Comments: EKG - 16:01 - AFIB @ [address] elevations. EKG 2- 17:01 - AFIB @ 56 BPM. Re-Evaluation - Re-Evaluation 1 Re-Evaluation Time: 17:20 Change: Worse - HR dropped to 20's, ABC alert called briefly and cancelled 2 Re-Evaluation Time: 17:33 Comment: Vomiting. Pt states she is generally exhausted Course/Dx - Course Course Of Treatment: ABC alert called @ 17:20. 30 minutes after the pt was given Cardizem the pt went into AFIB with RVR at 150 bpm. Pt then developed symptomatic Bradycardia with a HR between mid 20s to mid 30s. There was an episode where the pt became asystolic; CPR was given for 15 seconds and the pt regained consciousness. I discussed the case with Dr. Collins who assessed the patient and recommended glucagon and insulin. After this the pt developed N/V for which the pt was given Zofran. Right now the pt is maintaining a HR between 50 and 60, BP 120/60. Pt feels a little better. Discussed the case with Dr. Pitt, who accepted the pt for admission to [facility] at 18:00. Assessment/Plan: This patient is a 77-year-old female who presents to the emergency department with daughter with chief complaint of having shortness of breath and palpitations. The patient has past medical history significant for morbid obesity, coronary artery disease, hypertension and dyslipidemia. EKG shows a negative fibrillation with RVR. They have rate has increased 150 bpm therefore I did order Cardizem for rate control. Test results without any significant abnormality except for glucose of 107. Urinalysis negative for UTI. Chest x-ray impression: Small right basilar infiltrate. Patient was given Rocephin for the pneumonia. And I was advised by the nurse that the patients heart rate is decreasing, and he came to a point that the patient became asystolic for approximately 10 seconds. CPR was started and the patients heart rate increased to about 40 bpm. No the patient has good pulses in the blood pressure is 120/60. I discussed the case with Dr. Collins and he came and saw the patient and he requested to give glucagon and insulin. Now the patient is stable, the blood pressure is 122/58, heart rate again is fluctuating between 40 and 60. I discussed the findings to results with Dr. Pitt from the hospital services and he accepted the patient for admission possibly to the ICU. Dr. Collins the box spring maker recommends for the patient he observed onto the medication wears off. At this point the patient is alert and oriented times same and she is more stable. Patient will go to the ICU. - Diagnoses Provider Diagnoses: Atrial fibrillation with RVR, Cardiac arrest, Symptomatic bradycardia, Pneumonia - Physician Notifications Discussed Care of Patient With: Dwain Collins Time Discussed With Above Provider: 17:18 - Critical Care Time Critical Care Time: 75-104 min Discharge - Sign-Out/Discharge Documenting (check all that apply): Patient Departure - Discharge Plan Condition: Stable Disposition: ADMITTED TO [facility] Referrals: Carolina Copeland MD [Primary Care Provider] - - Billing Disposition and Condition Condition: STABLE Disposition: Admitted to [facility]
[2017-11-16] MEDS ORDERED: Atropine SYRINGE* 0.1 MG/ML 10 ML SYRINGE (1 MG) ONE (17:17)
[2017-11-16] MEDS ORDERED: Glucagon* 1 MG VIAL IV ONE (17:22)
[2017-11-16 17:23] LABS: ABS Basophils 0.1 10^3/ul (0-0.2); ABS Eosinophils 0.2 10^3/ul (0-0.6); ABS Lymphocytes 2.2 10^3/ul (1.0-4.8); ABS Monocytes 0.8 10^3/ul (0-0.8); ABS Neutrophils 3.7 10^3/ul (1.5-7.7); ABS Nucleated RBC 0 10^3/ul; Eosinophil % 3.1 % (0-6); Hematocrit 35 % (35-47); Hemoglobin 11.2 g/dl (12.0-16.0); Lymphocyte % 31.4 % (25-47); Mean Corpuscular HGB Conc 32 g/dl (31-36); Mean Corpuscular Hemoglobin 25 pg (27-31); Mean Corpuscular Volume 78 fL (80-97); Mean Platelet Volume 9.9 um3 (7.4-10.4); Nucleated Red Blood Cells % 0.1; Platelet Count 165 10^3/ul (150-450); Red Blood Count 4.51 10^6/ul (4.00-5.40); Red Cell Distribution Width 15 % (10.5-15); White Blood Count 6.9 10^3/ul (3.5-10.8)
[2017-11-16] MEDS ORDERED: Insulin REGULAR(*) 1 UNITS UNIT IV PUSH ONE (17:23)
[2017-11-16] MEDS ORDERED: Ondansetron INJ* 2 MG/ML VIAL ONE (17:33)
[2017-11-16] MEDS ORDERED: Ondansetron INJ* 2 MG/ML VIAL IV ONE (17:34)
[2017-11-16 17:42] LABS: EGFR Non-African American 47.9 (>60)
--- NOTE | 2017-11-16 17:47 | RAD ---
INDICATION: Shortness of breath. COMPARISON: Comparison is made with a prior chest x-ray study from January 24, 2017 TECHNIQUE: A portable view of the chest was obtained. FINDINGS: Cardiac and mediastinal contours appear to be within normal limits. There is a small infiltrate at the right lung base. IMPRESSION: SMALL RIGHT BASILAR INFILTRATE.
[2017-11-16 18:04] LABS: Urine Appearance Clear; Urine Blood Negative (Negative); Urine Color Yellow; Urine Ketones Negative (Negative); Urine Protein 2+(100 mg/dL) (Negative); Urine Red Blood Cell 1+(3-5/hpf) (Absent); Urine Specific Gravity 1.016 (1.010-1.030); Urine Urobilinogen Negative (Negative); Urine White Blood Cell Trace(0-5/hpf) (Absent)
[2017-11-16] MEDS ORDERED: cefTRIAXone(*) 1 GM in NS 0.9% 50 ML* 50 ML IVPB ONE (18:21)
[2017-11-16] MEDS ORDERED: Acetaminophen TAB* 325 MG PO PRN (19:24)
[2017-11-16] MEDS ORDERED: Furosemide IV* 10 MG/ML 2 ML VIAL (20 MG) IV SLOW PU ONE (20:55)
[2017-11-16] MEDS ORDERED: Furosemide IV* 10 MG/ML 2 ML VIAL (20 MG) ONE (20:56)
--- NOTE | 2017-11-16 21:36 | HP ---
HISTORY AND PHYSICAL: DATE OF ADMISSION: ADDENDUM: ASSESSMENT AND PLAN: I do note that there is a right small infiltrate reported on x-ray but, however, the patient has no clinical signs of pneumonia. She is not having any fevers. There has been coughing. No chills. There is no white count. My plan will be to check procalcitonin. I will also try to get sputum, Legionella, and urine cultures. If she spikes a fever, then certainly, I will put her on antibiotic coverage, but there has not been any history of this in talking with the patient and the family, so I think we can hold off on antibiotic therapy for the time being. She did receive a dose in the ED. We will continue to follow. SILVA JONES NP [id number]/CPS #: [id number] MTDD
--- NOTE | 2017-11-16 22:59 | HP ---
ADDENDUM NOW INCLUDED ON THIS REPORT CC: Dr. Copeland; Dr. Collins * HISTORY AND PHYSICAL: DATE OF ADMISSION: 11/16/17 MY ATTENDING PHYSICIAN WHILE IN THE HOSPITAL: Tyson Zamora MD* (report dictated by Jet Martinez NP) HISTORY OF PRESENT ILLNESS: Mrs. Street is a 77-year-old female patient. She carries a history of hypertension. She has a valvular heart disease. She has mild-to- moderate aortic insufficiency and gwka-sp-ptxjwpem mitral insufficiency. She has a history of ROOSEVELT. There is a history of hyperlipidemia , hypertension, chronic back pain. She presents today stating that she has been having issues with increasing shortness of breath with exertion and having epigastric discomfort with exertion as well. She has not had really pointed into her chest. She says it just feels like her abdomen is tight. She cannot get a deep breath. Her daughter noted today that she was moving food from one Tupperware container to the other and she became profoundly short of breath and her daughter brought her to [facility]. While there, they noted that her heart rate was very fast, in AFib and sent her to [facility]. The patient and the daughter note that there has been lower leg swelling off and on for the last several days. The patient has previously seen Cardiology in the past and at that point, it had been mentioned that she had been having intermittent palpitations for some time for 40 plus years. The daughter seems to believe that and the mother was stating that the palpitations had increased over the last several days. She is really unable to get a good timeframe. There are no reports of recent syncope. Again, no chest discomfort is reported. The patient says that it is just hard to breath all the time. There has been a weight change of at least 5 to 10 pounds per the daughter. There was concern though because she came into the ED, was noted to be in rapid AFib. She was given a dose of diltiazem 20 mg IV push and she became profoundly bradycardic. She actually received about 15 seconds of chest compression and then has spontaneous return of circulation and was awake and alert and oriented x3. Because of this, we were asked to evaluate for admission. PAST MEDICAL HISTORY: Significant for: 1. Hypertension. 2. Chronic back pain. 3. Hyperlipidemia. 4. ROOSEVELT. 5. She has a history of ougz-wc-zujrfbrt mitral regurg and btqd-sv-mkoyzzxv aortic regurg, and again she has documented normal EF back in January. She also had a normal stress test back in January as well according to environmental services tech that she saw back in January, Dr. Salmon. 6. She has a history of osteopenia and osteoarthritis. PAST SURGICAL HISTORY: She has a history of cataract extraction only. MEDICATIONS: Home medication include: 1. Atenolol 50 mg at bedtime. 2. Calcium 1 capsule p.o. daily. 3. Vitamin D 2000 units daily. 4. Ibuprofen 200 mg every 8 hours as needed. 5. Zocor 10 mg daily at bedtime. 6. Lisinopril 20 mg p.o. daily. ALLERGIES TO MEDICATIONS: No known drug allergies. FAMILY HISTORY: Unknown. SOCIAL HISTORY: The patient had a history of chewing tobacco, has not done this in several years. She does not drink alcohol. Her surrogate decision makers are her daughter and her . REVIEW OF SYSTEMS: There is no documented fever. There was a weight change of 5 to 10 pounds. There was no double vision. There is no ear discharge. She is denying having any cough, rhinorrhea. No sore throat. No fevers or chills. There has been no reports of abdominal pain. There was 1 episode of nausea and vomiting today during the bradycardic episode. She denies having any abdominal discomfort. She denies having any syncope. No seizure activities reported. Review of 14 systems completed, all others negative. PHYSICAL EXAMINATION GENERAL: At this time, Mrs. Street is a 77-year-old female patient. She is sitting in the ED stretcher. She does not appear to be in any acute distress currently. VITAL SIGNS: Blood pressure 129/83, pulse was 50, her O2 saturation was 100 on 2 L, and her respirations were 18, temperature was 98.1. HEENT: Head: Atraumatic, normocephalic. Eyes: EOMs are intact. Sclerae anicteric and not pale. Throat: Oral mucosa appears to be moist. No oropharyngeal erythema. NECK: Supple. LUNGS: She had a slight wheeze bilaterally. Otherwise equal diaphragmatic expansion, no crackles or rales were heard. HEART: Sounds S1, S2. Irregularly irregular rate. She is bradycardic. I could not appreciate any murmurs. ABDOMEN: Soft, flat, nontender. Bowel sounds are present. EXTREMITIES: She had trace edema bilaterally but no pitting edema. She had 5/ 5 strength. NEUROLOGIC: She is awake, alert. She is oriented x3. Her speech was clear. She does speak Micronesian, some Lithuanian but it is broken. She had no gross obvious focal deficits. SKIN: Her skin was intact. DIAGNOSTIC STUDIES/LAB DATA: Her labs revealed a WBC of 6.7, RBC of 4.51, hemoglobin was 11.2, hematocrit 35, platelet count 165. Sodium was 137, potassium was 4.6, chloride 102, bicarb was 28, BUN 20, creatinine 1.11, glucose 107, lactate 1.2, calcium 9. Mag 2.1. Total bili 0.5, AST 20, ALT 25, alk phos 62. CK 41, troponin 0.01. TSH was normal at 5.36. Urine showed 2+ protein and 1+ rbc. She did have several EKGs, initial EKG presenting into the urgent care showed atrial fibrillation at a rate of [address] depression. She had a repeat EKG at 1600 here, which again showed atrial fibrillation with diffuse ST depression, rate of 131. After the diltiazem, repeat EKG showed that the ST depression had improved. She had atrial fibrillation, but she was bradycardic at 56. No ST elevation was noted. She did have a chest x-ray obtained today. Radiologist's impression at this point is small right basilar infiltrate. Chest x-ray did show again, impression per radiologist: Small right basilar infiltrate. When I reviewed it , I do not appreciate any. To me it appears that she has some pulmonary vascular congestion. The old medical records reviewed. Again, I did have Dr. Salmon's old note. Again at that point, she had a normal preserved EF. This was the fall of this 2017. She had a stress test which was normal back in January and EF of 50% and her resting heart rate at that point according to the notes there from Cardiology was 50. ASSESSMENT AND PLAN: Mrs. Street is a 77-year-old female patient coming into the ED today with complaints of again, initially of atrial fibrillation with rapid ventricular response. She was treated in the ED and then became profoundly bradycardic. At that point, we were asked to evaluate for admission. She will be admitted under inpatient status for: 1. Atrial fibrillation with presumed sick sinus syndrome. I did touch base with Dr. Collins about this patient. I felt that the Cardizem most likely contributed to the profound bradycardia, but she had a pretty profound response. We will go ahead and put her in the ICU. She has pacemaker pads in place. I will have a wire at the bedside. Should I run in the trouble throughout the night, I will certainly call Dr. Collins at the bedside for a temporary pacer wire. We are holding off on heparin until midnight. We will start heparin at midnight, as the thought is that nearby then the Cardizem wore off by then and it will be safer to start the heparin later in case we need to do a temporary wire in the next 4 hours. So we will place her in ICU, I am checking. We will cycle her troponins and ordered an echo. I made her n.p.o. after midnight. I am not giving anymore rate controlling agents. I did pose the question of calcium gluconate for the patient. Dr. Collins felt at this point that she received insulin and glucagon that would be appropriate for calcium channel tory reversal. So we will go ahead and just continue monitoring in the ICU. She is stable with the bradycardia. She has pacemaker pads on and her blood pressure is stable. She is maintaining well. We will continue to follow. 2. Question of congestive heart failure. Again, in talking to the patient she has had a weight gain. She has some trace edema and on exam, she it to me sounded like she had some fine wheezing. I did pose the question if she gets Lasix tonight, but she is stable. She is not hypoxic. She is not tachypneic. I am going to hold off until reevaluating her tomorrow and Dr. Collins was in agreement with holding on Lasix if her blood pressure is stable. She did have 15 seconds of CPR and I do not want to add unnecessary treatments at this point , until they actually need to. So she is on 2 L. O2 sats are fine. We will continue to monitor her, we will get the echo, and we will treat once she is little more stable. 3. Hypertension. Holding her medications. 4. History of aortic valve insufficiency, mitral valve insufficiency, repeating the echo. 5. Chronic back pain. I wrote p.r.n. Tylenol. 6. Hyperlipidemia. I will continue her statin. 7. Obstructive sleep apnea. I will continue her CPAP. 8. DVT prophylaxis: At midnight, we will be restarting her on a heparin drip. 9. Code status: She is full code. 10. Fluids, electrolytes, and nutrition: She can have a heart healthy diet and then n.p.o. after midnight. TIME SPENT: On admission 50 minutes, greater than half of the time was spent face- to-face with the patient obtaining my history and physical, other half of the time spent going over the plan of care with the patient and implementing the plan of care. I did discuss the plan of care with my attending, Dr. Zamora, he is in agreement. JET MARTINEZ NP ADDENDUM: ASSESSMENT AND PLAN: I do note that there is a right small infiltrate reported on x-ray but, however, the patient has no clinical signs of pneumonia. She is not having any fevers. There has been coughing. No chills. There is no white count. My plan will be to check procalcitonin. I will also try to get sputum, Legionella, and urine cultures. If she spikes a fever, then certainly, I will put her on antibiotic coverage, but there has not been any history of this in talking with the patient and the family, so I think we can hold off on antibiotic therapy for the time being. She did receive a dose in the ED. We will continue to follow. JET MARTINEZ NP [id number]/CPS #: [id number]/CPS #: [id number] CHARITY
[2017-11-16] MEDS ORDERED: Diltiazem DRIP* 100 MG/100 ML ADDV.BAG IVPB SCH ×2 (23:00→23:54)
[2017-11-17] MEDS: Heparin VIAL(*) 5000 UNITS/ML VIAL (FIVE THOUSAND) IV PRN (00:33)
[2017-11-17] MEDS: Heparin DRIP 25,000 UNITS(*) 25,000 UNITS/500 ML BAG IV SCH (00:34)
[2017-11-17] MEDS ORDERED: Diltiazem DRIP* 100 MG/100 ML ADDV.BAG IVPB SCH (03:00)
[2017-11-17 06:48] LABS: ABS Basophils 0.1 10^3/ul (0-0.2); ABS Eosinophils 0.1 10^3/ul (0-0.6); ABS Lymphocytes 2.2 10^3/ul (1.0-4.8); ABS Monocytes 0.8 10^3/ul (0-0.8); ABS Neutrophils 5.4 10^3/ul (1.5-7.7); ABS Nucleated RBC 0 10^3/ul; Eosinophil % 1.7 % (0-6); Hematocrit 35 % (35-47); Hemoglobin 11.4 g/dl (12.0-16.0); Lymphocyte % 25.4 % (25-47); Mean Corpuscular HGB Conc 32 g/dl (31-36); Mean Corpuscular Hemoglobin 25 pg (27-31); Mean Corpuscular Volume 77 fL (80-97); Nucleated Red Blood Cells % 0.2; Platelet Count 162 10^3/ul (150-450); Red Blood Count 4.57 10^6/ul (4.00-5.40); Red Cell Distribution Width 16 % (10.5-15); White Blood Count 8.7 10^3/ul (3.5-10.8)
[2017-11-17 06:55] LABS: INR 1.12 (0.77-1.02)
--- NOTE | 2017-11-17 10:00 | ECHO ---
Patient: ANDREW SIMS [facility] Rec#: [id number] : 1940 Date: 11/17/2017 Age: 77y Height: 151 cm / 59.4 in Weight: 79 kg / 174.1 lbs Sex: F BSA: 1.75 Room#: ICU 6 Admit Date#: 11/16/2017 Type: Inpatient Referring: Jet Martinez NP Reading: Marcy Gonzalez MD Manager Culinary: Connie Bennett,RDCS,RDMS Transthoracic Echocardiogram Indication: AFIB BP: 114/84 HR: 124 Rhythm: A-Fib Findings History: HTN, HLD, AOV insufficiency, MV regurgitation Technical Comments: The study quality is good. Left Ventricle: The left ventricular chamber size is normal. Moderate concentric left ventricular hypertrophy is observed. Global left ventricular wall motion and contractility are within normal limits. The estimated ejection fraction is 50-55%. The assessment of diastolic function is non-diagnostic. Left Atrium: The left atrium is moderately dilated. Right Ventricle: The right ventricular chamber size and systolic function are within normal limits. Right Atrium: The right atrium is mild to moderately dilated. Aortic Valve: The aortic valve is trileaflet. Systolic excursion of the aortic valve is normal. There is aortic annular calcification. There is mild aortic regurgitation. There is no evidence of aortic stenosis. Mitral Valve: The mitral valve leaflets are mildly thickened. There is mild to moderate mitral regurgitation. closer to moderate, posterior jet. There is no evidence of mitral stenosis. Tricuspid Valve: The tricuspid valve leaflets are normal. There is moderate tricuspid regurgitation.best seen in subcostal view. There is evidence that pulmonary hypertension may be underestimated. Pulmonic Valve: The pulmonic valve appears normal. There is a trace pulmonic regurgitation. Pericardium: There is no significant pericardial effusion. Aorta: The aortic root appears normal. There is no dilatation of the aortic arch. Pulmonary Artery: The main pulmonary artery is not well visualized. Venous: The inferior vena cava appears normal in size. There is an approximate 50% respiratory change in the inferior vena cava dimension. Conclusions Moderate concentric left ventricular hypertrophy is observed. Global left ventricular wall motion and contractility are within normal limits. The estimated ejection fraction is 50-55%. The right ventricular chamber size and systolic function are within normal limits. Biatrial enlargement. There is mild aortic regurgitation. There is mild to moderate mitral regurgitation, closer to moderate, posterior jet. There is moderate tricuspid regurgitation. Compared with prior echo of 12/16/16, ventricular function is stable, GERONIMO seen previously, AI noted previously, no progression, MR previously estimated as moderate, TR has increased from trace. Measurements Name Value Normal Range RVIDd (AP) 2D 2.3 cm (0.9 - 2.6) RVDdMajor (2D) 2.1 cm (2.2 - 4.4) RAd ISD 4CH 5.8 cm (3.4 - 4.9) RA (A4C)W 3.4 cm (2.9 - 4.6) IVSd (2D) 1.4 cm (0.6 - 1) LVPWd (2D) 1.4 cm (0.6 - 1) LVIDd (2D) 3.7 cm (3.6 - 5.4) LVIDs (2D) 2.5 cm - LV FS (2D) 34 % (25 - 45) Aortic Annulus 1.9 cm (1.4 - 2.6) Ao root diameter (2D) 2.8 cm (2.1 - 3.5) Ascending Ao 3.2 cm (2.1 - 3.4) Aortic arch 2.9 cm (1.8 - 3.4) LA dimension (AP) 2D 4.3 cm (2.3 - 3.8) LAd ISD 4CH 6.4 cm (2.9 - 5.3) LA ISD 4CH W 4.8 cm (2.5 - 4.5) Name Value Normal Range LA ESV BP (A/L) index 47 ml/m2 - Name Value Normal Range MV E-wave Vmax 0.8 m/sec - MV deceleration time 89 msec - LV lateral e' Vmax 0.07 m/sec - LV E:e' lateral ratio 12 ratio - Name Value Normal Range AV Vmax 1.5 m/sec - AV peak gradient 9 mmHg - LVOT Vmax 0.8 m/sec - LVOT peak gradient 2.6 mmHg - TAISHA Vmax 0.4 m/sec - Name Value Normal Range TR Vmax 2.2 m/sec - TR peak gradient 19 mmHg - RAP 3 mmHg - RVSP 22 mmHg - IVC diameter 1.9 cm -
[2017-11-17] MEDS ORDERED: Flumazenil* 0.1 MG/ML 5 ML MDV ONE (12:03)
[2017-11-17] MEDS ORDERED: Midazolam* 1 MG/ML 10 ML VIAL (10 MG) ONE (12:03)
[2017-11-17] MEDS ORDERED: Lidocaine 2% VISCOUS* 15 ML UDC ONE (12:03)
[2017-11-17] MEDS ORDERED: Naloxone* 0.4 MG/ML 1 ML VIAL ONE (12:03)
[2017-11-17] MEDS ORDERED: fentaNYL* 50 MCG/ML 2 ML VIAL (100 MCG VIAL) ONE (12:03)
--- NOTE | 2017-11-17 13:31 | PN ---
Subjective Date of Service: 11/17/17 Interval History: HOSPITALIST PROGRESS NOTE Patient seen and examined at bedside. Care reviewed and d/w Neva Andino RN. She denies chest pain, but has palpitations and dyspnea. No further episodes of severe bradycardia or prolonged pauses. Family History: Unchanged from Admission Social History: Unchanged from Admission Past Medical History: Unchanged from Admission Objective Active Medications: Acetaminophen (Tylenol Tab*) 650 mg PO Q4H PRN PRN Reason: FEVER/PAIN Heparin Sodium (Porcine) (Heparin Vial(*)) 0 units IV .BOLUS PRN PRN PRN Reason: HEPARIN DRIP PROTOCOL Last Admin: 11/17/17 00:33 Dose: 4,500 units Heparin Sodium/Dextrose (Heparin Drip 25,000 Units(*)) 25,000 units in 500 mls @ 0 mls/hr IV PER RATE CARIE; Protocol Last Admin: 11/17/17 00:34 Dose: 19 mls/hr Diltiazem HCl (Cardizem Iv Advan*) 100 mg in 100 mls @ 5 mls/hr IVPB .PER PARAMETERS CARIE; Protocol Last Admin: 11/17/17 02:12 Dose: 5 mls/hr Simvastatin (Zocor(Nf)) 10 mg PO 1700 [facility] Vital Signs - 8 hr 11/17/17 11/17/17 11/17/17 05:30 06:00 06:01 Temperature 98.2 F 98.4 F 98.4 F Pulse Rate 118 96 130 Respiratory 18 15 15 Rate Blood Pressure 134/104 114/84 (mmHg) O2 Sat by Pulse 99 95 93 Oximetry 11/17/17 11/17/17 11/17/17 06:30 07:00 07:01 Temperature 98.4 F 98.4 F 98.4 F Pulse Rate 126 92 99 Respiratory 15 11 12 Rate Blood Pressure 141/104 82/48 (mmHg) O2 Sat by Pulse 91 98 97 Oximetry 11/17/17 11/17/17 11/17/17 07:30 08:00 08:31 Temperature 98.6 F 98.8 F 98.8 F Pulse Rate 107 125 111 Respiratory 13 18 12 Rate Blood Pressure 96/60 97/86 103/82 (mmHg) O2 Sat by Pulse 98 98 98 Oximetry 11/17/17 11/17/17 11/17/17 08:50 09:00 09:01 Temperature 98.8 F 98.8 F Pulse Rate 99 112 Respiratory 18 14 Rate Blood Pressure 102/64 (mmHg) O2 Sat by Pulse 98 98 99 Oximetry 11/17/17 11/17/17 11/17/17 09:30 10:00 10:01 Temperature 99.0 F 99.0 F 98.8 F Pulse Rate 111 119 120 Respiratory 12 17 16 Rate Blood Pressure 115/91 109/72 (mmHg) O2 Sat by Pulse 98 98 98 Oximetry 11/17/17 11/17/17 11/17/17 11:00 12:00 12:01 Temperature 99.0 F 99.1 F 99.1 F Pulse Rate 122 100 99 Respiratory 17 15 16 Rate Blood Pressure 127/74 124/70 (mmHg) O2 Sat by Pulse 98 98 98 Oximetry 11/17/17 11/17/17 11/17/17 12:32 12:36 12:42 Temperature 99.3 F 99.3 F 99.3 F Pulse Rate 133 101 108 Respiratory Rate Blood Pressure 138/103 139/88 92/50 (mmHg) O2 Sat by Pulse 90 94 95 Oximetry 11/17/17 11/17/17 11/17/17 12:43 12:48 12:51 Temperature 99.3 F 99.3 F 99.3 F Pulse Rate 98 93 104 Respiratory Rate Blood Pressure 57/45 147/105 84/64 (mmHg) O2 Sat by Pulse 93 97 98 Oximetry 11/17/17 13:00 Temperature 99.1 F Pulse Rate 111 Respiratory 18 Rate Blood Pressure (mmHg) O2 Sat by Pulse 92 Oximetry Oxygen Devices in Use Now: Nasal Cannula - 2 liters Appearance: Elderly lady lying in bed in NAD. Eyes: No Scleral Icterus Ears/Nose/Mouth/Throat: Mucous Membranes Moist Neck: Trachea Midline Respiratory: Symmetrical Chest Expansion and Respiratory Effort, Clear to Auscultation Cardiovascular: - - NOrmal S1 and S2, irregularly irregular Abdominal: NL Sounds; No Tenderness; No Distention Extremities: - - Trace bilateral LE edema Neurological: Alert and Oriented x 3, NL Muscle Strength and Tone Result Diagrams: 11/17/17 06:30 11/17/17 08:10 Assess/Plan/Problems-Billing Assessment: Mrs Street is a 77yo F with PMH of HTN, HLD, ROOSEVELT, chronic back pain who presented to ED with c/o shortness of breath, found to be in Afib RVR. She developed severe bradycardia after receiving Cardizem 20mg IVP and received 15 seconds of chest compressions. - Patient Problems (1) Tachy-jeffrey syndrome Comment: - The patient went from Afib RVR with HR 150s to severe bradycardia with HR 30s after receiving Cardizem 20mg IVP. - Awaiting Cardiology consultation regarding PAULETTE CV vs pacer placement. - Continue to monitor in ICU with pacer pads in place. (2) Atrial fibrillation with RVR Comment: - Off Cardizem drip now - awaiting Cardiology decision about PAULETTE CV. - [id number] is 5 (sex, age, CHF, HTN) - will require anticoagulation upon discharge. (3) Acute congestive heart failure Comment: - Likely diastolic in the setting of Afib RVR - patient had normal EF last November. - Follow repeat echo. - Received Furosemide last night - respiratory status appears to be improved - continue to monitor. (4) CKD (chronic kidney disease) stage 3, GFR 30-59 ml/min Comment: - Continue to monitor renal function and urine output. (5) HTN (hypertension) Comment: - BP on the lower side now - Atenolol and Lisinopril on hold. (6) Obstructive sleep apnea Comment: - Continue CPAP. (7) DVT prophylaxis Comment: - Heparin drip. (8) Full code status Status and Disposition: Inpatient. Continue to monitor in ICU.
[2017-11-17] MEDS ORDERED: NS 0.9% 1000 ML* 1,000 ML IV SCH (15:45)
[2017-11-17] MEDS: CMC: Simvastatin TAB(NF) 10 MG TAB PO SCH (16:37)
--- NOTE | 2017-11-17 21:00 | TEE ---
Patient: ANDREW SIMS [facility] Rec#: [id number] : 1940 Date: 11/17/2017 Age: 77y Height: 149.86 cm / 59.0 in Weight: 84.37 kg / 186.0 lbs Sex: F BSA: 1.79 Room#: [facility] Type: Inpatient Referring: Marcy Gonzalez MD Performing: Marcy Gonzalez MD Reading: Marcy Gonzalez MD Tmr Teacher: Connie Brandon RDCS Nurse: Yecenia Wells RN Nurse: Belia Penn Transesophageal Echocardiogram Indication: A-fib BP: 109/72 HR: 132 Rhythm: A-Fib Findings History: A-fib,HTN,ROOSEVELT,HLD. Technical Comments: The study quality is good. Completed at 1341. Left Ventricle: The left ventricular chamber size is normal. There is normal left ventricular systolic function. The estimated ejection fraction is 50-55%. The assessment of diastolic function is non-diagnostic. Left Atrium: The left atrium is moderately dilated. There is faint spontaneous echo contrast visualized in the left atrium cavity and appendage. The left atrial appendage velocity is normal. There is no thrombus visualized in the left atrial appendage. Right Ventricle: The right ventricular cavity size is normal. The right ventricular global systolic function is normal. Right Atrium: The right atrium is mild to moderately dilated. A patent foramen ovale is visualized. There is a patent foramen ovale with predominant [id number] shunting. A patent foramen ovale is demonstrated by color Doppler and agitated contrast. Aortic Valve: The aortic valve is trileaflet. There is mild thickening of the right coronary cusp. Systolic excursion of the aortic valve is normal. There is aortic annular calcification. There is mild aortic regurgitation. There is no evidence of aortic stenosis. Mitral Valve: The mitral valve leaflets are mildly thickened. There is mild mitral regurgitation. There is no evidence of mitral stenosis. Tricuspid Valve: The tricuspid valve leaflets are normal. There is mild to moderate tricuspid regurgitation. There is evidence that pulmonary hypertension may be underestimated. There is no tricuspid stenosis. Pulmonic Valve: The pulmonic valve appears normal. There is a trace pulmonic regurgitation. There is no pulmonic stenosis. Pericardium: The pericardium appears normal. Aorta: There is no dilatation of the ascending aorta. There is no dilatation of the aortic arch. There is no dilation of the aortic root. There is plaque visualized in the descending aorta. Noted as minimal. Venous: The bicaval view was obtained and appears normal. The pulmonary veins appear normal in size. 2 out of 4 seen. The flow pattern of the pulmonary veins appear normal. PAULETTE Procedures: History and physical as well as labs were reviewed. The patient was in a fasting state. Risks and benefits of the procedure, including alternatives, were discussed and written informed consent was obtained. The patient and/or their health care collections representative expressed understanding of the procedure, risks and benefits. Baseline and continuous monitoring of blood pressure, heart rate, pulse oximetry and heart rhythm was performed throughout the procedure. The appropriate time-out procedure was performed as per [facility] protocol. The patient was placed in the left lateral decubitus position. The patient's posterior pharynx was anesthetized with 20ml of 2% viscous lidocaine. The patient received IV Midazolam with a total dose of 3mg. The patient received IV Fentanyl with a total dose of 25 mcg. An oral bite block was inserted for protection of oral dentition. The multiplane transesophageal echocardiogram probe was inserted through the posterior oropharynx and advanced into the esophagus without difficulty. Multiple 2D images were obtained of the heart and its related structures. Color flow Doppler was used for evaluation. Spectral Doppler was also used. The atrial septum was interrogated with color flow Doppler. At the conclusion of the procedure the probe was removed with continuous suction without complications. The patient tolerated the procedure with no apparent complications. Contrast: Normal saline was used as contrast for the bubble study. Intravenous contrast was used to help determine presence of intracardiac shunting. Conclusions The left ventricular chamber size is normal. There is normal left ventricular systolic function. The estimated ejection fraction is 50-55%. The right ventricular global systolic function is normal. There is no thrombus visualized in the left atrial appendage. There is a patent foramen ovale with predominant [id number] shunting. There is mild aortic regurgitation. There is mild mitral regurgitation. There is mild to moderate tricuspid regurgitation. There is plaque visualized in the descending aorta. Measurements Name Value Normal Range Aortic Annulus 1.6 cm (1.4 - 2.6) Ao root diameter (2D) 2.6 cm (2.1 - 3.5) Ascending Ao 2.7 cm (2.1 - 3.4) Name Value Normal Range MV E-wave Vmax 0.7 m/sec - MV deceleration time 122 msec - Name Value Normal Range TR Vmax 2.2 m/sec - TR peak gradient 19 mmHg -
[2017-11-17] MEDS: Dronedarone TAB* 400 MG PO SCH (22:46)
--- NOTE | 2017-11-18 00:48 | CARD ---
ELECTRICAL CARDIOVERSION NOTE: DATE OF PROCEDURE: 11/17/17 - ROOM #442 PROCEDURE: Electrical cardioversion, PAULETTE guided. The indications, risks, and benefits of the procedure were discussed with the patient, with her daughter acting as an pit inspector. Earlier, we had used a professional pit inspector as well to obtain informed consent. The patient was amenable to proceeding. DESCRIPTION OF PROCEDURE: For the combined procedures of transesophageal echo and electrical cardioversion, the patient received a total of 4 mg of Versed and 25 mcg of fentanyl. The transesophageal echo done prior to cardioversion did not show evidence of thrombus in the left atrial appendage and the decision was made to proceed with cardioversion. Using AP patches, 200 joules of energy was delivered across the chest wall. Initially, it appeared the patient would not cardiovert, but within 5 seconds, the patient did convert into normal sinus rhythm and currently is in sinus rhythm, 54 beats a minute with a blood pressure of 126/62. Oxygen saturation is 94%. Throughout the procedure, it was difficult to obtain blood pressures and manual blood pressures needed to be done, but manual blood pressure showed good blood pressure throughout. CONCLUSION: Successful cardioversion after transesophageal echo from atrial fibrillation with a rapid ventricular rate to normal sinus rhythm. The patient was hemodynamically stable. [id number]/[facility] #: [id number] CHARITY
--- NOTE | 2017-11-18 02:53 | CONS ---
CC: Hospitalist Service; Dr. Copeland; Dr. Angelito Salmon; Dr. Trace Scherer * CARDIOLOGY CONSULTATION: DATE OF CONSULT: 11/17/17 REASON FOR CONSULT: Atrial fibrillation and tachy jeffrey. HISTORY OF PRESENT ILLNESS: The patient does not speak [place] well and history was obtained with the presence of her daughter and , who have assisted with translation. The patient's daughter states her mother has noted palpitations for about 2 months. For 2 to 3 days, the patient had shortness of breath with exertion and discomfort in the epigastrium, the sensation that she could not get a deep breath. The patient was brought to the emergency room yesterday because she became markedly winded with very light activity. In the emergency department, the patient was found to be in atrial fibrillation with a rapid ventricular rate. She received 20 mg of diltiazem IV push apparently rather quickly and then developed marked bradycardic response to her AFib. The patient was given chest compressions transiently that rapidly woke up and the mentation was back to normal. Prior to this, the patient has had no syncopal or near-syncopal episodes. The patient has only traveled to [facility] for just 1 day. No recent new medications. She has not missed any of her atenolol doses. The patient denies fevers, chills, sweats, recent coughing. No change in bowel or bladder habits and no recent changes in diet. Review of systems did reveal that the patient's calcium levels had recently been abnormal related to an infection and antibiotic use. PAST MEDICAL HISTORY: The patient has a past medical history of: 1. Mitral insufficiency. 2. Aortic insufficiency (followed by Dr. Angelito Salmon). 3. Hypertension. 4. Dyslipidemia. 5. Chronic back pain. 6. Obstructive sleep apnea. 7. Degenerative arthritis. OUTPATIENT MEDICATIONS: Included: 1. Atenolol 50 mg q.h.s. 2. Lisinopril 20 mg a day. 3. Simvastatin 10 mg a day. 4. Ibuprofen p.r.n. 5. Vitamin D. FAMILY HISTORY: Uncertain possible cancer with her mother. SOCIAL HISTORY: The patient was born and raised in [facility], lives with her daughter and supportive family. Past history of chewing tobacco but none recently. REVIEW OF SYSTEMS: As above. Two-month history of pounding heart followed by several days of progressive exertional dyspnea, recent hypercalcemia. Negative for fevers, chills, sweats, change in bowel or bladder habits. No recent weight gain or weight loss. No orthopnea, PND, or increased leg swelling. All other 14-point review of systems was negative. Urgent care note from 10/15/17 reviewed. She had vaginal abscess in the labia majora, treated with Bactrim. Notes reviewed from Dr. Copeland's office 10/25/17 showing pulse was 43 and blood pressure 124/70. PHYSICAL EXAM: On exam, the patient is a short, overweight woman, lying with nasal cannula on, appears comfortable in no acute distress. Psychologically, pleasant and cooperative. Neurologically, she is awake, alert, oriented to person, place based on conversation with her daughter. She follows commands. Skin: Warm, dry. No cyanosis or rashes. HEENT: Mucous membranes moist. Neck : Obese but no appreciable lymphadenopathy or thyromegaly. Breath sounds were clear with good effort. No wheezes, rales, or rhonchi. Coronary: S1, S2. Irregularly irregular. I did not appreciate murmurs. Abdomen: Overweight. Active bowel sounds. Soft. No epigastric discomfort. No hepatomegaly. Lower extremities were free of edema. DIAGNOSTIC STUDIES: EKG and rhythm strips reviewed from the emergency department. Her presenting EKG from 11/16/17 confirmed atrial fibrillation with a ventricular rate of 128 beats a minute, QRS axis +60, normal interventricular conduction times and ST depression in the lateral leads V4 through V6, and she meets voltage criteria for left ventricular hypertrophy. EKG yesterday at 1700 shows atrial fibrillation with a bradycardic response of 56 beats a minute, improvement in lateral ST depression. EKG at 7 in the morning shows atrial fibrillation with a ventricular rate of 125 beats a minute, repolarization changes similar to admission. Chest x-ray report, a small infiltrate in the right lung base. Transthoracic echo done in AFib showed moderate left ventricular hypertrophy with an ejection fraction of 50% to 55%, mild aortic insufficiency, mild-to- moderate mitral insufficiency with a posterior jet, moderate tricuspid insufficiency and this is not significantly changed compared with an echo done 12/16/16. LABORATORY DATA: White count 8.7, hematocrit 35, mean cell volume low at 77, and platelets 162 (mean cell volume is decreased compared with 2017). INR 1.22 , PTT 162. Sodium 140, potassium 4.4, chloride 109, bicarb 24, BUN 21, creatinine 1.15, glucose 101 improved from 199 on admission, calcium 8.4, magnesium 2.0. ALT 25, AST 28. Troponin #1, 0.01, troponin #2, 0.01. BNP 1515. TSH 5.36. Urinalysis had 2+ protein, negative for ketones, leukocyte esterase negative, nitrite negative. Urine culture, no growth. IMPRESSION: In summary, Noel Street is a 77-year-old woman with hypertension, dyslipidemia, obstructive sleep apnea uses CPAP with known aortic and mitral insufficiency, who presented with a 2-month history of heart pounding, several- day history of progressive exertional dyspnea, found to be in atrial fibrillation with a rapid ventricular rate and evidence of congestive heart failure based on brain natriuretic peptide levels and history. The main concern at the time of my consult was her bradycardia but this appears to be iatrogenic related to rapid diltiazem infusion. I spent considerable amount of time discussing with the patient the natural course of atrial fibrillation and that I felt the atrial fibrillation was the cause of her presenting symptoms and that she may well have been in it for as long as 2 months. I discussed the stroke risk with atrial fibrillation and I offered the patient 3 options, one would be to stay in atrial fibrillation chronically with control of the rate, two would be to cardiovert either with PAULETTE guidance or wait 4 to 6 weeks and then without PAULETTE guidance. At first, the patient was anxious about sedation but when she understood it was the same sedation that she had recently had with Dr. Scherer, she was amenable. The patient underwent PAULETTE-guided cardioversion which was successful and she had no bradycardia with the cardioversion. For the patient's paroxysmal atrial fibrillation, she has significant risk for this returning with risk of age, history of obstructive sleep apnea, nonsteroidal use, and hypertension could be contributing as well. Ideally, she would go on an antiarrhythmic but considerations would include some mild renal insufficiency and her sinus bradycardia. Flecainide is a potential option but I think Multaq safer initially. Drake, I am worried about with the language difficulties that she might inadvertently mixes with the medication that would be undesirable. I would like to avoid sotalol as it lowers rate more as does propafenone. Gentle amiodarone might be an option if she breaks through Multaq. The patient has a high CHADS-VASc score with congestive heart failure, diabetes , hypertension, age of 77, and therefore long-term anticoagulation would be desirable. I would recommend it with no contraindications, I think she would be a good candidate for Eliquis. Regarding the patient's tachy jeffrey syndrome, there is a relative indication for pacemaker implantation which would allow for additional antiarrhythmic options. I think this could be done electively or as an inpatient. The patient was a bit overwhelmed today so we left at that today. We would do the transesophageal echo and cardioversion and could discuss further options in the future. For the patient's hypertension, as she is now off the atenolol and I would consider replacing this with a non-rate lowering agent such as Norvasc. For the patient's congestive heart failure, this appears to be diastolic with a contribution of valvular heart disease and my hope is that restoring normal sinus rhythm will aid if she is using a lot of nonsteroidals. Alternative pain medications may also help prevent fluid retention. For the patient's mild microcytosis, as she is going to be on chronic anticoagulation, evaluation will be important. I do understand she had undergone recent endoscopy with Dr. Scherer (09/21/17 showed normal colonoscopy and ileoscopy). It seems she would be at risk for gastritis based on her nonsteroidal use and microcytosis. Additional recommendations will be made pending the patient's response to the above measures. [id number]/[facility] #: [id number] CHARITY
[2017-11-18 06:26] LABS: EGFR Non-African American 46.5 (>60)
[2017-11-18] MEDS: Dronedarone TAB* 400 MG PO SCH ×2 (08:35→17:31)
[2017-11-18] MEDS ORDERED: Furosemide IV* 10 MG/ML 2 ML VIAL (20 MG) IV SLOW PU ONE (08:56)
[2017-11-18 11:24] LABS: ABS Basophils 0 10^3/ul (0-0.2); ABS Eosinophils 0.2 10^3/ul (0-0.6); ABS Lymphocytes 1.5 10^3/ul (1.0-4.8); ABS Monocytes 0.9 10^3/ul (0-0.8); ABS Neutrophils 3.9 10^3/ul (1.5-7.7); ABS Nucleated RBC 0 10^3/ul; Eosinophil % 3.6 % (0-6); Hematocrit 32 % (35-47); Hemoglobin 10.6 g/dl (12.0-16.0); Lymphocyte % 23.1 % (25-47); Mean Corpuscular HGB Conc 33 g/dl (31-36); Mean Corpuscular Hemoglobin 25 pg (27-31); Mean Corpuscular Volume 77 fL (80-97); Mean Platelet Volume 9.6 um3 (7.4-10.4); Nucleated Red Blood Cells % 0.2; Platelet Count 141 10^3/ul (150-450); Red Blood Count 4.16 10^6/ul (4.00-5.40); Red Cell Distribution Width 16 % (10.5-15); White Blood Count 6.6 10^3/ul (3.5-10.8)
[2017-11-18] MEDS: Heparin VIAL(*) 5000 UNITS/ML VIAL (FIVE THOUSAND) IV PRN (11:40)
--- NOTE | 2017-11-18 13:39 | PN ---
Subjective Date of Service: 11/18/17 Interval History: HOSPITALIST PROGRESS NOTE Patient seen and examined at bedside. Care reviewed and d/w Lola Victor RN. Daughter (Chanel) translates. Patient feels better today, chest pressure and palpitations are resolved. Appetite is good, offers no complaints at this time. Family History: Unchanged from Admission Social History: Unchanged from Admission Past Medical History: Unchanged from Admission Objective Active Medications: Acetaminophen (Tylenol Tab*) 650 mg PO Q4H PRN PRN Reason: FEVER/PAIN Dronedarone (Multaq Tab*) 400 mg PO BID WITH MEALS [facility] Last Admin: 11/18/17 08:35 Dose: 400 mg Heparin Sodium (Porcine) (Heparin Vial(*)) 0 units IV .BOLUS PRN PRN PRN Reason: HEPARIN DRIP PROTOCOL Last Admin: 11/18/17 11:40 Dose: 2,250 units Heparin Sodium/Dextrose (Heparin Drip 25,000 Units(*)) 25,000 units in 500 mls @ 0 mls/hr IV PER RATE [facility]; Protocol Last Admin: 11/17/17 00:34 Dose: 19 mls/hr Simvastatin (Zocor(Nf)) 10 mg PO 1700 [facility] Last Admin: 11/17/17 16:37 Dose: 10 mg Vital Signs - 8 hr 11/18/17 11/18/17 11/18/17 06:00 08:00 08:11 Temperature 97.9 F Pulse Rate 54 Respiratory 18 18 18 Rate Blood Pressure 123/58 (mmHg) O2 Sat by Pulse 100 Oximetry 11/18/17 11/18/17 08:43 11:29 Temperature 97.9 F 99.6 F Pulse Rate 54 61 Respiratory 18 16 Rate Blood Pressure 123/58 121/59 (mmHg) O2 Sat by Pulse 100 95 Oximetry Oxygen Devices in Use Now: Nasal Cannula - 2 liters Appearance: Pleasant elderly lady sitting up in bed in NAD. Eyes: No Scleral Icterus Ears/Nose/Mouth/Throat: Mucous Membranes Moist Neck: Trachea Midline Respiratory: Symmetrical Chest Expansion and Respiratory Effort, - - BS+ bilaterally with bibasilar crackles Cardiovascular: RRR - Normal S1 and S2 Abdominal: NL Sounds; No Tenderness; No Distention Neurological: Alert and Oriented x 3, NL Muscle Strength and Tone Result Diagrams: 11/18/17 10:58 11/18/17 05:35 Assess/Plan/Problems-Billing Assessment: Mrs Street is a 77yo F with PMH of HTN, HLD, ROOSEVELT, chronic back pain who presented to ED with c/o shortness of breath, found to be in Afib RVR. She developed severe bradycardia after receiving Cardizem 20mg IVP and received 15 seconds of chest compressions. - Patient Problems (1) Atrial fibrillation with RVR Comment: - S/p PAULETTE CV 11/17/17 - remains in NSR - continue Multaq. - [id number] is 5 (sex, age, CHF, HTN) - will require anticoagulation. Will continue heparin drip for now, pending GI evaluation, but plan to discharge on Eliquis. (2) Tachy-jeffrey syndrome Comment: - The patient went from Afib RVR with HR 150s to severe bradycardia with HR 30s after receiving Cardizem 20mg IVP. - Cardiology consultation appreciated - s/c PAULETTE CV, will discuss pacer. (3) Acute congestive heart failure Comment: - Likely diastolic in the setting of Afib RVR - patient had normal EF last November. - Repeat echo showed EF 50-55% with no significant change in valvular disease. - Low dose Furosemide today. (4) Anemia Comment: - Check anemia w/u. - As patient takes NSAIDs, there is concern for GI bleed - will request GI evaluation prior to starting Eliquis. (5) CKD (chronic kidney disease) stage 3, GFR 30-59 ml/min Comment: - Continue to monitor renal function and urine output. (6) HTN (hypertension) Comment: - BP on the lower side now - Atenolol and Lisinopril on hold. (7) Obstructive sleep apnea Comment: - Continue CPAP. (8) DVT prophylaxis Comment: - Heparin drip. (9) Full code status Status and Disposition: Inpatient. Continue to monitor in ICU.
[2017-11-18] MEDS: Heparin DRIP 25,000 UNITS(*) 25,000 UNITS/500 ML BAG IV SCH (14:08)
[2017-11-18] MEDS ORDERED: fentaNYL* 50 MCG/ML 2 ML VIAL (100 MCG VIAL) ONE (14:52)
[2017-11-18] MEDS ORDERED: Midazolam* 1 MG/ML 10 ML VIAL (10 MG) ONE (14:52)
[2017-11-18] MEDS: CMC: Simvastatin TAB(NF) 10 MG TAB PO SCH (17:31)
[2017-11-19] MEDS: Dronedarone TAB* 400 MG PO SCH ×2 (09:53→16:16)
[2017-11-19] MEDS: Omeprazole CAP* 20 MG PO SCH (09:53)
[2017-11-19 10:06] LABS: EGFR Non-African American 46.5 (>60)
[2017-11-19 10:07] LABS: ABS Basophils 0 10^3/ul (0-0.2); ABS Eosinophils 0.2 10^3/ul (0-0.6); ABS Lymphocytes 1.4 10^3/ul (1.0-4.8); ABS Monocytes 0.6 10^3/ul (0-0.8); ABS Neutrophils 3.6 10^3/ul (1.5-7.7); ABS Nucleated RBC 0 10^3/ul; Eosinophil % 4.1 % (0-6); Hematocrit 32 % (35-47); Lymphocyte % 23.8 % (25-47); Mean Corpuscular HGB Conc 32 g/dl (31-36); Mean Corpuscular Hemoglobin 25 pg (27-31); Mean Corpuscular Volume 78 fL (80-97); Mean Platelet Volume 9.8 um3 (7.4-10.4); Nucleated Red Blood Cells % 0.1; Platelet Count 144 10^3/ul (150-450); Red Blood Count 4.06 10^6/ul (4.00-5.40); Red Cell Distribution Width 15 % (10.5-15); White Blood Count 5.9 10^3/ul (3.5-10.8)
[2017-11-19] MEDS: Apixaban* 5 MG TAB PO SCH ×2 (11:17→19:55)
--- NOTE | 2017-11-19 13:03 | PN ---
Subjective Date of Service: 11/19/17 Interval History: HOSPITALIST PROGRESS NOTE Patient seen and examined at bedside. Care reviewed and d/w Sharmila Santiago RN. Daughter (Chanel) present at bedside and translates. Mrs Street feels better today. Denies chest pain or pressure, breathing is comfortable, and she had no more palpitations. Denies abdominal pain, N/V/D. Family History: Unchanged from Admission Social History: Unchanged from Admission Past Medical History: Unchanged from Admission Objective Active Medications: Acetaminophen (Tylenol Tab*) 650 mg PO Q4H PRN PRN Reason: FEVER/PAIN Apixaban (Eliquis*) 5 mg PO BID [facility] Last Admin: 11/19/17 11:17 Dose: 5 mg Dronedarone (Multaq Tab*) 400 mg PO BID WITH MEALS [facility] Last Admin: 11/19/17 09:53 Dose: 400 mg Omeprazole (Prilosec Cap*) 40 mg PO DAILY@0600 [facility] Last Admin: 11/19/17 09:53 Dose: 40 mg Simvastatin (Zocor(Nf)) 10 mg PO 1700 [facility] Last Admin: 11/18/17 17:31 Dose: 10 mg Vital Signs - 8 hr 11/19/17 11/19/17 11/19/17 07:25 08:00 11:06 Temperature 98.1 F 98.3 F Pulse Rate 59 64 Respiratory 16 18 16 Rate Blood Pressure 125/55 153/57 (mmHg) O2 Sat by Pulse 98 97 Oximetry Oxygen Devices in Use Now: None Appearance: Pleasant elderly lady sitting up in bed in [facility]. Eyes: No Scleral Icterus Ears/Nose/Mouth/Throat: Mucous Membranes Moist Neck: Trachea Midline Respiratory: Symmetrical Chest Expansion and Respiratory Effort, Clear to Auscultation Cardiovascular: RRR - Normal S1 and S2 Abdominal: NL Sounds; No Tenderness; No Distention Neurological: Alert and Oriented x 3, NL Muscle Strength and Tone Result Diagrams: 11/19/17 09:29 11/19/17 09:29 Assess/Plan/Problems-Billing Assessment: Mrs Street is a 77yo F with PMH of HTN, HLD, ROOSEVELT, chronic back pain who presented to ED with c/o shortness of breath, found to be in Afib RVR. She developed severe bradycardia after receiving Cardizem 20mg IVP and received 15 seconds of chest compressions. - Patient Problems (1) Atrial fibrillation with RVR Comment: - S/p PAULETTE CV 11/17/17 - remains in NSR - continue Multaq. - [id number] is 5 (sex, age, CHF, HTN) - GI evaluation revealed esophageal erosions, but safe for anticoagulation - will d/c Heparin drip and start Eliquis. Risks, benefits, alternatives discussed again with patient and daughter (already had conversation with Dr. Gonzalez before) - they're in agreement. (2) Tachy-jeffrey syndrome Comment: - The patient went from Afib RVR with HR 150s to severe bradycardia with HR 30s after receiving Cardizem 20mg IVP. - Cardiology consultation appreciated - s/c PAULETTE CV, will discuss pacer as outpatient. (3) Acute congestive heart failure Comment: - Likely diastolic in the setting of Afib RVR - patient had normal EF last November. - Repeat echo showed EF 50-55% with no significant change in valvular disease. - Resolved. (4) Anemia Comment: - Anemia w/u pending. (5) Esophageal erosions Comment: - Likely secondary to NSAIDs use. - GI input appreciated - plan for Omeprazole 40mg/day for 2-3 weeks. (6) CKD (chronic kidney disease) stage 3, GFR 30-59 ml/min Comment: - Renal function stable - continue to monitor. (7) HTN (hypertension) Comment: - BP trending up - start low dose Amlodipine. (8) Obstructive sleep apnea Comment: - Continue CPAP. (9) DVT prophylaxis Comment: - Eliquis. (10) Full code status Status and Disposition: Inpatient. Anticipate d/ in AM if she continues to improve.
[2017-11-19] MEDS: amLODIPine TAB* 5 MG PO SCH (16:16)
[2017-11-19] MEDS: CMC: Simvastatin TAB(NF) 10 MG TAB PO SCH (16:16)
--- NOTE | 2017-11-19 17:06 | CONS ---
CC: Dr. Copeland * CONSULTATION REPORT: DATE OF CONSULT: 11/18/17 REQUESTING PHYSICIAN: Dr. Wells. PRIMARY CARE PHYSICIAN: Dr. Copeland. INDICATION: AFib, need for anticoagulation, anemia. NARRATIVE: Mrs. Street is a very pleasant 77-year-old female. She has a history of heart disease, aortic insufficiency, ROOSEVELT, hypertension, hyperlipidemia, chronic back pain, who was admitted to the hospital in rapid AFib. The patient was noted to have a drop in her hemoglobin and some black stool. She does take nonsteroidals on a fairly regular basis, and she does need anticoagulation for her AFib. Thus, the primary care team has requested an upper endoscopy for further evaluation. PAST MEDICAL HISTORY: Please see the HPI. Additionally, she has osteopenia and osteoarthritis. PAST SURGICAL HISTORY: Include cataracts. MEDICATIONS UPON ADMISSION: Include: 1. Atenolol. 2. Calcium. 3. Ibuprofen. 4. Zocor. 5. Lisinopril. ALLERGIES: None. FAMILY HISTORY: The patient does not know her family history. SOCIAL HISTORY: She has used tobacco in the past. No alcohol. REVIEW OF SYSTEMS: Twelve systems were reviewed; other than that mentioned in the HPI were unremarkable. PHYSICAL EXAM: Temperature is 99.6, blood pressure is 121/59, pulse is 61, respiratory rate of 16, O2 sat is 95%. General: Well-appearing, elderly female , in no apparent distress. Alert, oriented, and pleasant. She speaks broken Spanish; however, her daughter is there to translate who speaks perfectly wonderful Spanish. HEENT: Mucous membranes are moist without lesions, ulcers, or exudate. Dentition is poor. Heart: Irregular rate and rhythm. No rubs or gallops. Lungs: Clear to auscultation bilaterally. No wheezes, rales, or rhonchi. Abdomen: Positive bowel sounds. Soft, nontender, nondistended. No hepatosplenomegaly, masses, rebound, or guarding. Skin is warm and dry. DIAGNOSTIC STUDIES/LAB DATA: Labs of note, her hemoglobin went from 11.2 to 11.4 and then 10.6. White count of 6.6, platelets of 141. BUN went from 21 to 25, creatinine is 1.15 to 1.14. ASSESSMENT AND PLAN: This is a pleasant 77-year-old female with new onset rapid atrial fibrillation, who needs anticoagulation. There is concern about peptic ulcer disease. I will make arrangements for an upper endoscopy for evaluation. She has anemia. We will follow along after the procedure. [id number]/[facility] #: [id number] CHARITY
--- NOTE | 2017-11-19 22:09 | PRO ---
CC: Dr. Copeland * DATE OF PROCEDURE: 11/18/17 - ROOM #442 PROCEDURE: EGD. INDICATION: Anemia, rapid AFib, need for anticoagulation. MEDICATIONS GIVEN: 25 mcg IV fentanyl, 3 mg IV Versed. DESCRIPTION OF PROCEDURE: After the EGD procedure, including the risks, benefits, and alternatives, not limited to perforation, surgery, and/or were explained to Ms. Street, written consent was then obtained. IV medication was given and a bite- block was placed between the teeth. An Olympus gastroscope was then inserted into the patient's mouth and advanced down the esophagus, into the stomach, and into the distal duodenum. In the esophagus, at the GE junction, Z line was intact. No erosive esophagitis, stricture, or ring was seen. The scope was advanced through the GE junction into the body of the stomach. Retroflex view was unremarkable. Forward view did reveal a few small, approximately 5 gastric erosions; they were nonbleeding. A biopsy was obtained for H. pylori. The scope was advanced through a widely patent pylorus , into the duodenal bulb, into the distal duodenum, both of which were unremarkable. The scope was then withdrawn from the patient. She tolerated the procedure well and was returned to the recovery room in stable condition. IMPRESSION: 1. Complete upper endoscopy into the distal duodenum with biopsies. 2. A few small gastric erosions potentially the cause for her anemia, most likely secondary to her nonsteroidals. I did take a biopsy for Helicobacter pylori. I will follow up on this. I would like the patient to be on PPI for at least the next 4 weeks. I think anticoagulation would be okay with close monitoring of her stool color and hemoglobin and she definitely should not take any nonsteroidals. [id number]/[facility] #: [id number] [facility]
[2017-11-20] MEDS: Omeprazole CAP* 20 MG PO SCH (06:04)
[2017-11-20] MEDS: amLODIPine TAB* 5 MG PO SCH (08:15)
[2017-11-20] MEDS: Apixaban* 5 MG TAB PO SCH (08:15)
[2017-11-20] MEDS: Dronedarone TAB* 400 MG PO SCH (08:16)
[2017-11-20 09:19] VITALS: BP 152/81
--- NOTE | 2017-11-22 01:54 | DS ---
CC: Dr. Copeland; Dr. Salmon * DISCHARGE SUMMARY: DATE OF ADMISSION: 11/16/17 DATE OF DISCHARGE: 11/20/17 PRIMARY CARE PROVIDER: Dr. Copeland. ENVELOPE FOLDER: Dr. Salmon. DISCHARGE DIAGNOSES: 1. Atrial fibrillation with rapid ventricular rate, status post cardioversion. 2. Tachy-jeffrey syndrome. 3. Acute diastolic congestive heart failure. 4. Iron deficiency anemia. 5. Gastric erosions, likely secondary to NSAID use. SECONDARY DIAGNOSES: 1. Hypertension. 2. Chronic back pain. 3. Hyperlipidemia. 4. Obstructive sleep apnea. 5. Mild to moderate mitral regurgitation and aortic regurgitation. 6. Osteopenia. 7. Osteoarthritis. MEDICATION LIST: 1. Calcium plus vitamin D 1 capsule p.o. daily. 2. Vitamin D 2000 units p.o. daily. 3. Simvastatin 10 mg p.o. daily. New medications: 1. Amlodipine 5 mg p.o. daily. 2. Potassium chloride 20 mEq p.o. daily. 3. MiraLAX 17 g p.o. daily. 4. Omeprazole 40 mg p.o. daily at 6 a.m. for 4 weeks. 5. Furosemide 10 mg p.o. daily. 6. Multaq 400 mg p.o. b.i.d. with meals. 7. Eliquis 5 mg p.o. b.i.d. 8. Acetaminophen 650 mg p.o. q.4 hours p.r.n. pain or fever. HOSPITAL COURSE: Mrs. Street is a 77-year-old lady with a past medical history as above that presented to the emergency room with complaints of progressive shortness of breath with exertion associated with epigastric discomfort and chest pressure. For more details about her presentation, I refer you to her history and physical. In the emergency room, the patient was found to be in atrial fibrillation with rapid ventricular rate and when she received a 10 mg IV push of diltiazem, the patient became profoundly bradycardic and she actually received about 15 seconds of chest compressions and had immediate return of spontaneous circulation and was awake and alert, oriented x3. For more details about her presentation, I refer you to her history and physical. In the emergency room, the patient's initial chest x-ray showed findings compatible with congestion. She was admitted to the intensive care unit and had pacer pads placed, but she did not have any further episodes of significant bradycardia. A transthoracic echocardiogram showed an ejection fraction of 50 to 55% with moderate LVH, biatrial enlargement, mild aortic regurgitation, mild to moderate mitral regurgitation. She was seen in consultation by Cardiology (Dr. Gonzalez) and her impression was that Mrs. Street is a 77-year-old lady with hypertension, hyperlipidemia, obstructive sleep apnea with CPAP, known aortic and mitral insufficiency who presented with a 2- month history of heart pounding, several day history of progressive exertional dyspnea, found to be in atrial fibrillation with rapid ventricular rate and evidence of congestive heart failure based on BNP levels and history. The main concern at the time of her consultation was bradycardia, but that appeared to be iatrogenic related to rapid diltiazem infusion. Dr. Gonzalez discussed the stroke risk with atrial fibrillation and offered multiple options including staying in atrial fibrillation chronically with rate control or cardioversion with PAULETTE guidance or 4 to 6 weeks of anticoagulation, then cardioversion without PAULETTE guidance. After reviewing the options with the patient and her daughter, she elected to have PAULETTE guided cardioversion. Dr. Gonzalez also stated the patient is at high risk for recurrent AFib considering her age, history of obstructive sleep apnea, NSAID use, hypertension , biatrial enlargement. She reviewed multiple options including flecainide, Tikosyn, propafenone, sotalol and decided that the best option for the patient at this time would be Multaq. The patient tolerated the medication well and stayed in sinus rhythm with no QT prolongation. Initially, the patient was anticoagulated with heparin, but after reviewing risks and benefits, the patient agreed anticoagulation with Eliquis. As the patient had some anemia with microcytosis and her workup revealed iron deficiency, Dr. Gonzalez recommended cardiology consultation prior to starting Eliquis. The patient was seen by Dr. Heard and underwent an upper endoscopy that showed a few small gastric erosions as the potential cause for her anemia, most likely secondary to NSAID use. Biopsy was sent for Helicobacter pylori and Dr. Heard will follow her as outpatient. At this point, his recommendation is to continue omeprazole 40 mg daily for 4 weeks and he also felt the anticoagulation could be started. Regarding the patient's tachy-jeffrey syndrome, Dr. Gonzalez felt that there is a relative indication for pacemaker implantation, which would allow for additional antiarrhythmic options, but she felt that this could be done elective as an outpatient. She felt that the patient is already overwhelmed with so many options and that performing PAULETTE cardioversion as inpatient and giving the patient time to decide about further procedures would be fitzgerald. The patient's hypertension was treated with atenolol before, but she recommended changing to a new rate lowering agent such as amlodipine. She felt that the acute diastolic CHF exacerbation is secondary to her atrial fibrillation and rapid ventricular rate and also use of nonsteroids. The patient responded well to diuresis with furosemide and was advised to avoid nonsteroidals in the future. The patient became asymptomatic, felt back at her baseline and she was deemed stable for discharge to continue her treatment and follow up as outpatient. PHYSICAL EXAMINATION: Vital Signs: Temperature 98.0, heart rate is 60, respiratory rate is 20, oxygen saturation 98% on room air, blood pressure is 129 /51. General: The patient is a pleasant elderly lady, sitting up in the chair , in no acute distress. CVS: Normal S1, S2. Regular rate and rhythm. Chest: Breath sounds present bilaterally with no added sounds. Abdomen is obese, soft. Bowel sounds are present. ACTIVITIES: As tolerated. DISPOSITION: To home. STATUS WHILE IN THE HOSPITAL: Inpatient. Please keep in mind that this is a summarized version of this patient's hospital stay. If you need more information, please feel free to call me at or please obtain the full medical records. TIME SPENT: Approximately 50 minutes were spent to complete this discharge. [id number]/[facility] #: [id number] [facility]
== END 2017-11-20 10:20 | disposition home health service (06) | DRG 308 ==
LOC: ED 15:19 → ICU 18:05 → MEDTELE 11-18 04:00
PROVIDERS: ADMIT Internal Medicine; ATTEND Internal Medicine
PROC: 5A12012 Performance of Cardiac Output, Single, Manual (ICD-10-PCS; principal; 2017-11-16)
PROC: 5A09357 Assistance with Respiratory Ventilation, Less than 24 Consecutive Hours, Continuous Positive Airway Pressure (ICD-10-PCS; 2017-11-16)
PROC: 5A2204Z Restoration of Cardiac Rhythm, Single (ICD-10-PCS; 2017-11-17)
PROC: B24BZZ4 Ultrasonography of Heart with Aorta, Transesophageal (ICD-10-PCS; 2017-11-17)
PROC: 0DB68ZX Excision of Stomach, Via Natural or Artificial Opening Endoscopic, Diagnostic (ICD-10-PCS; 2017-11-18)
DX: I48.0 Paroxysmal atrial fibrillation (principal); I50.31 Acute diastolic (congestive) heart failure; I13.0 Hypertensive heart and chronic kidney disease with heart failure and stage 1 through stage 4 chronic kidney disease, or unspecified chronic kidney disease; G47.33 Obstructive sleep apnea (adult) (pediatric); E78.5 Hyperlipidemia, unspecified; G89.29 Other chronic pain; M54.9 Dorsalgia, unspecified; I49.5 Sick sinus syndrome; M85.80 Other specified disorders of bone density and structure, unspecified site; M19.90 Unspecified osteoarthritis, unspecified site; I25.10 Atherosclerotic heart disease of native coronary artery without angina pectoris; M19.072 Primary osteoarthritis, left ankle and foot; M19.071 Primary osteoarthritis, right ankle and foot; M47.9 Spondylosis, unspecified; N18.3 Chronic kidney disease, stage 3 (moderate); I08.3 Combined rheumatic disorders of mitral, aortic and tricuspid valves; K25.9 Gastric ulcer, unspecified as acute or chronic, without hemorrhage or perforation; D50.9 Iron deficiency anemia, unspecified; Z87.891 Personal history of nicotine dependence; Z98.42 Cataract extraction status, left eye; Z98.41 Cataract extraction status, right eye; Z79.01 Long term (current) use of anticoagulants
CPT/HCPCS: 36415; 71045; 80048; 80053; 81003; 81015; 82550; 82565; 82607; 82728; 82746; 83540; 83550; 83605; 83735; 83880; 84145; 84443; 84484; 84520; 85025; 85610; 85730; 87077; 87086; 87641; 87899; 93005; 93306; 94660; 99156; 99157; 99212; 99285; A9270-GY; G0463; J0461; J0696; J1610; J1644; J1940; J2250; J2310; J2405; J3010

== ENCOUNTER 2018-01-27 18:34 | Emergency (ER) | payer MEDICARE, MEDICAID ==
--- OUTSIDE RECORDS SUMMARY | 2018-01-27 18:39 | XMS REPORT ---
:1940 External Reference #:[id number] Author Organization [facility] Address [address] [place] [address] [place] [address] Phone [phone] Care Team Providers Name Role Phone Carolina Copeland MD Primary Care Physician Unavailable Payers Type Date Identification Numbers Payment Provider Subscriber Medicare Primary Effective: Policy Number: [id number] Medicare Ngim Mao 2012 PayID: [id number] [address] [place] [address] [facility] Policy Number: [id number] Medicaid Ngjulius Mao PayID: [id number] [address] [place] [address] Problems Date Description Provider Status Onset: 09/22/2012 Essential hypertension Meagan Bynum M.D. Active Onset: 01/31/2016 Localized, primary osteoarthritis America Druan M.D. Active Note: knee Onset: 10/21/2016 Osteopenia Carolina Copeland M.D. Active Onset: 10/21/2016 Electrocardiogram abnormal Carolina Copeland M.D. Active Onset: 12/17/2016 Cholelithiasis without obstruction Carolina Copeland M.D. Active Onset: 12/21/2016 Aortic valve regurgitation Carolina Copeland M.D. Active Note: mild to moderate per echo non rheumatic Onset: 03/10/2017 Sleep apnea Carolina Copeland M.D. Active Onset: 06/17/2017 Mixed hyperlipidemia Denys Toney M.D. Active Onset: 11/23/2017 Paroxysmal atrial fibrillation Carolina Copeland M.D. Active Onset: 11/23/2017 Acute gastritis Carolina Copeland M.D. Active Onset: 11/23/2017 Drug-induced constipation Carolina Copeland M.D. Active Onset: 11/23/2017 Hypokalemia Carolina Copeland M.D. Active Onset: 09/22/2012 Chronic hepatitis C [...] daughter General Hx Text finished grade 3 originally from [facility] has been in [place] since 2002 Allergies, Adverse Reactions, Alerts Date Description Reaction Status Severity Comments 09/22/2012 NKDA active Medications Medication Date Status Form Strength Qnty SIG Indications Ordering Provider Shingrix 01/05 Active Suspension 50mcg 1unit intramuscular Rec s x 1 then Dinorah, repeat in 4 M.D. months Omeprazole 12/[address] 20mg 90cap 1 by mouth Angelito S. s every day Salmon, DO FACC Furosemide 12/01 Active Tablets 20mg 30tab 1 by mouth Angelito S. /2017 s Wednesday, , Wednesday and DO FACC Wednesday with potassium Flecainide 12/01 Active Tablets 50mg 180ta take 1 tablet I48.0 Angelito SMaryellen Acetate bs by mouth Salmon, twice a day DO FACC Atenolol 11/25 Active Tablets 25mg 90tab 1 by mouth Angelito S. /2017 s every day Salmon, DO FACC Blood Pressure 04/27 Active Misc 1unit am and pm I10 Meagan Monitor /2013 s Julia Bynum/Wilbert Ward Inflate Simvastatin 12/29 Active Tablets 10mg 90tab take 1 tablet E78.2 Carolina s at bedtime Sylvia Copeland Vitamin D3 Active 1000Units 2 tablet po Unknown /0000 daily Calcium Active 600mg 1 tablet po Unknown 0000 daily Potassium Active Tablets ER 20Meq 30tab 1 by mouth Angelito SMaryellen Chloride Yesenia / s Wednesday, Salmon, ER Wednesday and DO FACC Wednesday with furosemide Eliquis Active Tablets 5mg 180ta take 1 tablet Angelito S. / bs by mouth Salmon, twice a day DO FACC Polyethylene Active Packet 3350NF take 17 gram Unknown Glycol 3350 Dissolved In Water by mouth once daily Hold For Loose Sto Amlodipine Active Tablets 5mg 90tab take 1 tablet Angelito S. Besylate s by mouth once Salmon, daily DO FACC Shingrix 10/25 Hx Suspension 50mcg 1unit intramuscular Rec s x 1 then Dinorah - repeat in 4 M.D. Naproxen 06/17 Hx Tablets 375mg 30tab twice a day M25.531 Denys s with food Feng Wilson M.D. 10/25 Meloxicam 06/29 Hx Tablets 15mg 60tab 1 by mouth America s every day Steve Duran M.D. 04/02 Meloxicam 11/13 Hx Tablets 7.5mg 90tab 1 by mouth M25.562 Sarthak Sears /2015 s once a day Steve Anderson M.D. 01/30 Knee Support 11/13 Hx Misc 2unit as needed dx: M25.562 Carolina W/Stabilizerpa s m25.562 jorgito Copeland/Mark/X-L - Sylvia arge 04/02 Oxybutynin 08/28 Hx Tablets ER 10mg 90tab 1 po qd N39.46 Meagan Chloride ER /2015 24HR s Steve Bynum M.D. 10/21 Oxybutynin 03/01 Hx Tablets ER 10mg 90tab 1 po qd N39.46 Meagan Chloride ER /2014 24HR s Steve Bynum M.D. 08/28 Calcium And 07/06 Hx Meagan Vitamind Wolfgang Bynum M.D. 01/18 Oxybutynin 07/06 Hx Tablets ER 10mg 90tab 1 po qd 788.33 Meagan Chloride 24HR s Steve Bynum M.D. 02/20 Vesicare 02/24 Hx Tablets 10mg 30tab 1 po qd 788.33 Meagan /2013 Stvee Gar M.D. 07/06 Lisinopril 02/07 Hx Tablets 20mg 90tab 1 by mouth in I10 s the morning Steve Copeland M.D. 11/23 Vitamin D3 12/27 Hx Capsules 5000Unit 8caps t tab every day for 8 Fletcher Strength - weeks Sylvia 07/06 Lisinopril 12/23 Hx Tablets 10mg 30tab 1 po qd 401.9 Steve Gar M.D. 02/07 Lisinopril 11/25 Hx Tablets 5mg 30tab 1 po qd 401.9 Steve Gar M.D. 12/23 Oxybutynin 11/25 Hx Tablets ER 10mg 90tab 1 po qd 788.33 Meagan Chloride 24HR Steve Gar M.D. 02/07 Tessalon 10/06 Hx Capsules 100mg 30cap 1 tab po 3x 786.2 Meagan Perles s per day Steve Bynum M.D. 11/11 Metronidazole 10/06 Hx Gel 0.75% 1tube 1 applicator 616.10 Meagan Vaginal intravaginal Steve Bynum for 7 days M.DMaryellen 11/11 Atenolol 10/06 Hx Tablets 50mg 90tab 1 tab by I10 s mouth at Copeland, - bedtime M.DMaryellen 11/23 Atenolol 09/22 Hx Tablets 25mg 90tab 1 po qd 401.9 Meagan Steve Gar M.D. 10/06 Fluconazole 09/22 Hx Tablets 150mg 2tabs 1 po then 616.10 repeat x1 in Steve Bynum 1week Sylvia 11/11 Metronidazole Hx Tablets 500mg 30tab 1 po tid Unknown /0000 s - 11/[address] 20mg 90cap 1 po qd Unknown /0000 s - 11/11 Avelox Hx Tablets 400mg 90tab 1 po qd Unknown /0000 s - 11/11 Vitamin B 12 Hx 1 po Unknown /0000 occasional - 04/02 Ibuprofen Hx Capsules 200mg prn Unknown /0000 - 11/19 Fluconazole Hx Tablets 150mg Unknown /0000 - 08/28 Meloxicam Hx Tablets 15mg 30tab once daily America /0000 s with food Steve Duran M.D. 06/29 Benzonatate Hx Capsules 100mg take 1 Unknown /0000 capsule by - mouth three 02/08 times a day /2016 if needed for cough Oxybutynin Hx Tablets ER 10mg 1 by mouth Unknown Chloride ER /0000 24HR every day - 02/08 Ketoconazole Hx Cream 2% apply twice a Unknown /0000 day - 02/08 Acetaminophen Hx Tablets 500mg 1-2 tabs 3x a Unknown /0000 day as needed - 02/08 Sulfamethoxazo 00 Hx Tablets 800-160mg 1 by mouth Unknown le/Trimethopri /0000 twice a day m DS - 10/28 Fluconazole Hx Tablets 150mg one by mouth Unknown /0000 may repeat in - 3 days as 11/23 Omeprazole [address] 40mg 90cap take 1 Angelito S. /0000 s capsule by Luis Antonio, - mouth once DO FACC 12/21 /2018 Furosemide 0000 Hx Tablets 20mg take 1 tablet Unknown /0000 by mouth once - daily 12/01 Multaq Hx Tablets 400mg 20tab 1 by mouth Angelito S. /0000 s twice a day Salmon, - DO FACC 11/25 Medications Administered in Office Medication Date Status Form Strength Qnty SIG Indications Ordering Provider Inj, Administered Injection Angelito Redding Regadenoson, 017 Salmon, 0.1 MG FACC Technetium TC Administered Injection Angelito S. 99M 017 Salmon, DO Tetrofosmin, FACC Per Unit Dose Up To 40 Millicuries Depomedrol Administered Injection America 40MG Tyrone Duran M.D. Depomedrol Administered Injection America 40MG Tyrone Duran M.D. Depomedrol Administered Injection America 40MG 016 Sylvia Duran Immunizations CPT Code Status Date Vaccine Lot # [id number] Given 01/05/2018 Influenza Virus Vaccine, Quadrivalent, Split, [id number] Preservative Free 80044 Given 10/21/2016 Tdap - Tetanus/Diptheria/Acellular Pertussis [id number] 20682 Given 10/21/2016 Pneumococcal Conjugate Vaccine 13 Valent For [id number] Intramuscular Use 73756 Given 03/01/2015 Influenza Virus Vaccine, Quadrivalent, Split, [id number] Preservative Free 27242 Given 02/20/2014 Flu Vaccine Split Virus Preservative Free For [id number] Indiv 3Yr Older 83663 Given 07/06/2013 Pneumonia Vaccine [id number] 19206 Given 02/24/2013 Flu Vaccine Split Virus Preservative Free For 1345 4p Indiv 3Yr Older Vital Signs Date Vital Result Comment 01/05/2018 Height 61 inches 5'1" Weight 172.00 lb Heart Rate 52 /min BP Systolic Sitting 124 mmHg BP Diastolic Sitting 82 mmHg O2 % BldC Oximetry 97 % BMI (Body Mass Index) 32.5 kg/m2 01/05/2018 Height 61 inches 5'1" Weight 172.00 lb Heart Rate 60 /min BP Systolic Sitting 128 mmHg BP Diastolic Sitting 68 mmHg Respiratory Rate 16 /min BMI (Body Mass Index) 32.5 kg/m2 12/29/2017 Heart Rate 50 /min BP Systolic 118 mmHg L arm , reg cuff BP Diastolic 70 mmHg L arm , reg cuff Respiratory Rate 18 /min 12/21/2017 Height 60.2 inches 5'0.20" Weight 171.00 lb Heart Rate 52 /min BP Systolic Sitting 140 mmHg Lue lg cuff BP Diastolic Sitting 72 mmHg Lue lg cuff BP Systolic Standing 148 mmHg Lue reg cuff BP Diastolic Standing 70 mmHg Lue reg cuff BMI (Body Mass Index) 33.2 kg/m2 Ejection Fraction 50-55% Echo 12/16/17 12/09/2017 Height 60.2 inches 5'0.20" Heart Rate 78 /min BP Systolic Sitting 140 mmHg BP Diastolic Sitting 76 mmHg Pain Level 0 12/01/2017 Height 60.2 inches 5'0.20" Weight 173.00 lb Heart Rate 64 /min BP Systolic 142 mmHg rue lg cuff BP Diastolic 62 mmHg rue lg cuff BP Systolic Sitting 148 mmHg lue lg cuff BP Diastolic Sitting 68 mmHg lue lg cuff BP Systolic Standing 142 mmHg BP Diastolic Standing 68 mmHg Respiratory Rate 16 /min BMI (Body Mass Index) 33.6 kg/m2 Ejection Fraction 50-55% 12/16/2016 echo 11/23/2017 Height 60.2 inches 5'0.20" Weight 170.00 lb Heart Rate 64 /min BP Systolic Sitting 130 mmHg BP Diastolic Sitting 76 mmHg O2 % BldC Oximetry 99 % BMI (Body Mass Index) 33.0 kg/m2 10/25/2017 Height 60.2 inches 5'0.20" Weight 171.00 [...] Test Date Test Result H/L Range Note Laboratory test 11/25/2017 Potassium 4.8 mmol/L 3.5-5.0 finding Laboratory test 11/16/2017 Point of Care Glucose 199 mg/dL High 70-100 1 finding CBC Auto Diff 11/16/2017 White Blood Count 6.9 10^3/uL 3.5-10.8 Red Blood Count 4.51 10^6/uL 4.00-5.40 Hemoglobin 11.2 g/dL Low 12.0-16.0 Hematocrit 35 % 35-47 Mean Corpuscular Volume 78 fL Low 80-97 Mean Corpuscular Hemoglobin 25 pg Low 27-31 Mean Corpuscular HGB Conc 32 g/dL 31-36 Red Cell Distribution Width 15 % 10.5-15 Platelet Count 165 10^3/uL 150-450 Mean Platelet Volume 9.9 um3 7.4-10.4 Abs Neutrophils 3.7 10^3/uL 1.5-7.7 Abs Lymphocytes 2.2 10^3/uL 1.0-4.8 Abs Monocytes 0.8 10^3/uL 0-0.8 Abs Eosinophils 0.2 10^3/uL 0-0.6 Abs Basophils 0.1 10^3/uL 0-0.2 Abs Nucleated RBC 0 10^3/uL Granulocyte % 53.2 % 38-83 Lymphocyte % 31.4 % 25-47 Monocyte % 11.4 % High 0-7 Eosinophil % 3.1 % 0-6 Basophil % 0.9 % 0-2 Nucleated Red Blood Cells % 0.1 Laboratory test finding 11/16/2017 Lactic Acid 1.2 mmol/L 0.5-2.0 2 Comp Metabolic Panel 11/16/2017 Sodium 137 mmol/L 135-145 Potassium 4.6 mmol/L 3.5-5.0 Chloride 104 mmol/L 101-111 Co2 Carbon Dioxide 28 mmol/L 22-32 Anion Gap 5 mmol/L 2-11 Glucose 107 mg/dL High 70-100 Blood Urea Nitrogen 20 mg/dL 6-24 Creatinine 1.11 mg/dL High 0.51-0.95 BUN/Creatinine Ratio 18.0 8-20 Calcium 9.0 mg/dL 8.6-10.3 Total Protein 7.4 g/dL 6.4-8.9 Albumin 3.8 g/dL 3.2-5.2 Globulin 3.6 g/dL 2-4 Albumin/Globulin Ratio 1.1 1-3 Total Bilirubin 0.50 mg/dL 0.2-1.0 Alkaline Phosphatase 62 U/L 34-104 Alt 25 U/L 7-52 Ast 28 U/L 13-39 Egfr Non- 47.9 >60 Egfr 58.0 >60 3 Laboratory test finding 11/16/2017 Magnesium 2.1 mg/dL 1.9-2.7 Creatine Kinase(CK) 41 U/L 10-223 Troponin-I (TnI) 0.01 ng/mL <0.04 TSH (Thyroid Stim Horm) 5.36 mcIU/mL 0.34-5.60 Urinalysis Profile 11/16/2017 Urine Color Yellow Urine Appearance Clear Urine Specific [place] 1.016 1.010-1.030 Urine pH 6.0 5-9 Urine Urobilinogen Negative Negative Urine Ketones Negative Negative Urine Protein 2+(100 mg/dL) Negative Urine Leukocytes Negative Negative Urine Blood Negative Negative Urine Nitrite Negative Negative Urine Bilirubin Negative Negative Urine Glucose Negative Negative Urine White Blood Cell Trace(0-5/hpf) Absent Urine Red Blood Cell 1+(3-5/hpf) Absent Urine Bacteria Absent Absent Urine Squamous Epithelial Cell Present Absent Urine Culture And 11/16/2017 Urine Culture SEE RESULT BELOW 4 Sensitivities Laboratory test finding 11/04/2017 Potassium 5.0 mmol/L 3.5-5.0 Comp Metabolic Panel 10/25/2017 Sodium 139 mmol/L 135-145 Chloride 109 mmol/L 101-111 Co2 Carbon Dioxide 23 mmol/L 22-32 Glucose 100 mg/dL 70-100 Blood Urea Nitrogen 26 mg/dL High 6-24 Creatinine 1.20 mg/dL High 0.51-0.95 BUN/Creatinine Ratio 21.7 High 8-20 Calcium 9.2 mg/dL 8.6-10.3 Total Protein 7.3 g/dL 6.4-8.9 Albumin 3.8 g/dL 3.2-5.2 Globulin 3.5 g/dL 2-4 Albumin/Globulin Ratio 1.1 1-3 Total Bilirubin 0.50 mg/dL 0.2-1.0 Alkaline Phosphatase 61 U/L 34-104 Alt 27 U/L 7-52 Ast 28 U/L 13-39 Egfr Non- 43.8 >60 Egfr 53.0 >60 5 Potassium 5.7 mmol/L High 3.5-5.0 Anion Gap 7 mmol/L 2-11 Laboratory test finding 10/25/2017 Vitamin D Total 25(Oh) 40.9 ng/mL 20- 50 6 Lipid Profile (Trig/Chol/HDL) 10/25/2017 Triglycerides 110 mg/dL 7 Cholesterol 155 mg/dL 8 HDL Cholesterol 38.7 mg/dL 9 LDL Cholesterol 94 mg/dL 10 Laboratory test finding 10/25/2017 TSH (Thyroid Stim Horm) 4.37 mcIU/mL 0.34-5.60 HIV 1&2 AB Self Referred Nonreactive Nonreactive 11 CBC Auto Diff 10/25/2017 White Blood Count 6.5 10^3/uL 3.5-10.8 Red Blood Count 5.28 10^6/uL 4.00-5.40 Hemoglobin 13.0 g/dL 12.0-16.0 Hematocrit 41 % 35-47 Mean Corpuscular Volume 78 fL Low 80-97 Mean Corpuscular Hemoglobin 25 pg Low 27-31 Mean Corpuscular HGB Conc 32 g/dL 31-36 Red Cell Distribution Width 15 % 10.5-15 Platelet Count 202 10^3/uL 150-450 Mean Platelet Volume 10.0 um3 7.4-10.4 Abs Neutrophils 3.0 10^3/uL 1.5-7.7 Abs Lymphocytes 2.5 10^3/uL 1.0-4.8 Abs Monocytes 0.6 10^3/uL 0-0.8 Abs Eosinophils 0.3 10^3/uL 0-0.6 Abs Basophils 0.1 10^3/uL 0-0.2 Abs Nucleated RBC 0 10^3/uL Granulocyte % 46.7 % 38-83 Lymphocyte % 38.9 % 25-47 Monocyte % 9.6 % High 0-7 Eosinophil % 4.0 % 0-6 Basophil % 0.8 % 0-2 Nucleated Red Blood Cells % 0.1 Order 10/21/2016 EKG <pending> Comp Metabolic Panel [...] Egfr Non- 64.5 >60 Egfr 83.0 >60 12 CBC Auto Diff 10/21/2016 White Blood Count [...] Lipid Profile (Trig/Chol/HDL) 10/21/2016 Triglycerides 78 mg/dL 13 Cholesterol 149 mg/dL 14 HDL Cholesterol 54.3 mg/dL 15 LDL Cholesterol 79 mg/dL 16 Laboratory test finding 10/21/2016 Vitamin D Total 43.0 ng/mL 30-50 25(Oh) Laboratory test finding 08/06/2015 Gardnerella/Yeast: SEE RESULT BELOW 17 Vaginal Dna Comp Metabolic Panel 02/27/2015 Sodium 139 mmol/L 133-145 18 Potassium 4.5 mmol/L 3.5-5.0 18 Chloride 105 mmol/L 101-111 18 Co2 Carbon Dioxide 29 mmol/L 22-32 18 Anion Gap 5 mmol/L 2-11 18 Glucose 86 mg/dL 70-100 18 Blood Urea Nitrogen 20 mg/dL 6-24 18 Creatinine 0.79 mg/dL 0.51-0.95 18 BUN/Creatinine Ratio 25.3 High 8-20 18 Calcium 9.0 mg/dL 8.6-10.3 18 Total Protein 7.3 g/dL 6.4-8.9 18 Albumin 4.0 g/dL 3.2-5.2 18 Globulin 3.3 g/dL 2-4 18 Albumin/Globulin Ratio 1.2 1-3 18 Total Bilirubin 0.40 mg/dL 0.2-1.0 18 Alkaline Phosphatase 55 U/L 34-104 18 Alt 15 U/L 7-52 18 Ast 23 U/L 13-39 18 Egfr Non- 71.5 >60 18 Egfr 92.0 >60 18, 19 Laboratory test finding 02/27/2015 Vitamin D Total 25(Oh) 38.6 ng/mL 30- 50 18, 20 Lipid Profile 02/27/2015 Triglycerides 66 mg/dL 18, 21 (Trig/Chol/HDL) Cholesterol 156 mg/dL 18, 22 HDL Cholesterol 50.4 mg/dL 18, 23 LDL Cholesterol 92 mg/dL 18, 24 Comp Metabolic Panel 12/13/2013 Sodium 140 mmol/L 133-145 25 Potassium 4.5 mmol/L 3.7-5.6 25 Chloride 106 mmol/L 101-111 25 Co2 Carbon Dioxide 31 mmol/L 22-32 25 Anion Gap 3 mmol/L 2-11 25 Glucose 96 mg/dL 70-100 25 Blood Urea Nitrogen 21 mg/dL 6-24 25 Creatinine 0.86 mg/dL 0.51-0.95 25 BUN/Creatinine Ratio 24.4 High 8-20 25 Calcium 9.1 mg/dL 8.6-10.3 25 Total Protein 7.2 g/dL 6.4-8.9 25 Albumin 4.0 g/dL 3.2-5.2 25 Globulin 3.2 g/dL 2-4 25 Albumin/Globulin Ratio 1.3 1-3 25 Total Bilirubin 0.50 mg/dL 0.2-1.0 25 Alkaline Phosphatase 52 U/L 34-104 25 Alt 16 U/L 7-52 25 Ast 20 U/L 13-39 25 Egfr Non- 65.0 >60 25 Egfr 83.7 >60 25, 26 Lipid Profile (Trig/Chol/HDL) 12/13/2013 Triglycerides 84 mg/dL 25, 27 Cholesterol 144 mg/dL 25, 28 HDL Cholesterol 47.0 mg/dL 25, 29 LDL Cholesterol 80 mg/dL 25, 30 Vitamin D, 25 Hydroxy 12/13/2013 25-Hydroxy Vitamin D2 <4.0 ng/mL 25 25-Hydroxy Vitamin D3 36 ng/mL 25 25-Hydroxy Vitamin D Total 36 ng/mL 25, 31 Lipid Profile (Trig/Chol/HDL) 05/09/2013 Triglycerides 66 mg/dL 40-200 Cholesterol 155 mg/dL Less than 200 HDL Cholesterol 47 mg/dL 40-60 32 Cholesterol/HDL Ratio 3.3 Average 1-4.44 LDL Cholesterol 94.8 Less Than 100 33 Hepatitis Acute Panel 05/09/2013 Hepatitis C Antibody Low Reactive Nonreactive 34 Hepatitis A AB IgM Nonreactive Nonreactive 35 Hepatitis B Core IgM Nonreactive Nonreactive 36 Hepatitis B Surface Antigen Nonreactive Nonreactive 37 Laboratory test 05/09/2013 Hepatitis C Rna Undetected IU/mL Undetected 38 finding Quantitative Vitamin D, 25 12/23/2012 25-Hydroxy Vitamin D2 <4.0 ng/mL Hydroxy 25-Hydroxy Vitamin D3 25 ng/mL 25-Hydroxy Vitamin D Total 25 ng/mL 39 Laboratory test 12/23/2012 Hepatitis C Rna Undetected IU/mL Undetected 40 finding Quantitative Hepatitis A Antibody Total Positive Negative 41 Lipid Profile (Trig/Chol/HDL) 12/23/2012 Triglycerides 105 mg/dL 40-200 Cholesterol 206 mg/dL High Less than 200 HDL Cholesterol 42 mg/dL 40-60 42 Cholesterol/HDL Ratio 4.9 Average High 1-4.44 LDL Cholesterol 143.0 High Less Than 100 43 Ua Routine 11/25/2012 Ua Specific [place] 1.010 Ua PH 5 Ua Color dark yellow Ua Appera clear Ua WBC trace Ua Protein trace Ua Glucose negative Ua Ketones negative Ua Bilirubin negative Ua Urobilinogen negative Ua Nitrite negative Ua Occult Blood positive Urine Culture And Sensitivities 11/25/2012 Urine Culture (SEE NOTE) 44 Lipid Profile (Trig/Chol/HDL) 11/08/2012 Triglycerides 77 mg/dL 40-200 Cholesterol 195 mg/dL Less than 200 HDL Cholesterol 41 mg/dL 40-60 45 Cholesterol/HDL Ratio 4.8 Average High 1-4.44 LDL Cholesterol 138.6 High Less Than 100 46 Comp Metabolic Panel 11/08/2012 Sodium 139 mmol/L [...] Egfr Non- 70.9 >60 Egfr 91.2 >60 47 Laboratory test 11/08/2012 Hepatitis C Rna Undetected IU/mL Undetected 48 finding Quantitative CBC Auto Diff 11/08/2012 White [...] Red Blood Cells % 0.1 Laboratory test finding 11/08/2012 TSH (Thyroid Stimulating 4.90 miu/mL 0.34-5.60 49 Horm) Ua Routine 09/22/2012 Ua Specific [place] 1.015 Ua PH 5 Ua Color dark yellow Ua Appera clear Ua WBC trace Ua Protein neg Ua Glucose neg Ua Ketones neg Ua Bilirubin neg Ua Urobilinogen neg Ua Nitrite neg Ua Occult Blood neg Urine Culture And Sensitivities 09/22/2012 Urine Culture (SEE NOTE) 50 1 Motion Picture Projectionist Apprentice: [id number] 2 [place] Severe Sepsis and Septic Shock Management Bundle Measure requires all lactic acids initially measuring >2.0 mmol/L be repeated. 3 Because ethnic data is not always readily [...] 15-29 5 Kidney failure <15 (or dialysis) 4 SEE RESULT BELOW Name: ANDREW SIMS : [address]: Kiersten Candelario MD Acct: [id number] Unit: [id number] AGE: 77 Location: ICU [id number] Re11/16/17 SEX: F Status: ADM IN SPEC: [id number] ASHLEY: 11/16/[address]: Sarthak Fabian MD REQ: [id number] RECD: 11/16/17 STATUS: COMP OTHR DR: Carolina Copeland MD _ SOURCE: URINE CONTRA [facility]: ORDERED: Urine Culture Procedure Result Reported Site Urine Culture Final 11/17/17- 1554 ML No growth of clinically significant organisms * ML - Main Lab . END OF REPORT DEPARTMENT OF PATHOLOGY, [address] [place] [address] Panfilo Somers M.D. Director [facility] # [id number] 5 Because ethnic data is not always readily [...] 15-29 5 Kidney failure <15 (or dialysis) 6 FASTING 10 HOUR 7 Desirable: <150 Borderline High: 150-199 High: 200-499 Very High: >500 8 Desirable: <200 Borderline High: 200-239 High: >239 9 Low: <40 Desirable: 40-60 High: >60 10 Desirable: <100 Near Optimal: 100-129 Borderline High: 130-159 High: 160-189 Very High: >189 11 It is recognized that currently available assays for the detection of antibodies to HIV-1 and/or HIV-2 may not detect all infected individuals. HIV antibodies may be undetectable in some stages of the infection and in some clinical conditions. The performance of this assay has not been established for populations of infants or children. Assayed by Chemiluminescence Microparticle Immunoassay on the Siemens Advia Centaur CP. Values obtained with different methods or kits cannot be used interchangeably.The diagnostic specificity of the ADVIA Centaur 1/O/2 Enhanced assay in the low risk population was 99.90% (6052/6058) with a 95% confidence interval of 99.78 to 99.96%. 12 Because ethnic data is not always [...] 5 Kidney failure <15 (or dialysis) 13 Desirable <150 Borderline high 150-199 High 200-499 Very High >500 14 Desirable <200 Borderline high 200-239 High >239 15 Low <40 Desirable: 40-60 High: >60 16 Desirable: <100 mg/dL Near Optimal: 100-129 mg/dL Borderline High: 130-159 mg/dL High: 160-189 mg/dL Very High: >189 mg/dL 17 SEE RESULT BELOW Name: ANDREW SIMS : [address]: Jaren Hernandez MD Acct: [id number] Unit: [id number] AGE: 74 Location: [facility] Re08/06/15 SEX: F Status: DEP ER SPEC: [id number] ASHLEY: 08/06/15-[address] [facility] [address]: Jaren Hernandez MD REQ: [id number] RECD: 08/07/15 STATUS: PATRICK NO DR: Meagan [...] ON NEXT PAGE * ML=Testing performed at [facility] DEPARTMENT OF PATHOLOGY, [address] [place] [address] Panfilo Somers M.D. Director [facility] # [id number] Patient: LEVIANDREW [id number] (Continued) Specimen: [id number] Collected: 08/06/15 Received: 08/07/15-1133 (Continued) Procedure Result Reported Site Trichomonas: Vaginal DNA Probe Final (continued) 08/07/15- 1405 The presence or absence of T. vaginalis cannot be used as a test for therapeutic success or failure. * ML - MAIN LAB ([facility]) . END OF REPORT * ML=Testing performed at Main Lab DEPARTMENT OF PATHOLOGY, [address] [place] [address] Panfilo Somers M.D. Director [facility] # [id number] 18 PT IS FASTING 19 Because ethnic data is not always [...] 5 Kidney failure <15 (or dialysis) 20 PT IS FASTING 21 Desirable <150 Borderline high 150-199 High 200-499 Very High >500 22 Desirable <200 Borderline high 200-239 High >239 23 Low <40 Desirable: 40-60 High: >60 24 Desirable: <100 mg/dL Near Optimal: 100-129 mg/dL Borderline High: 130-159 mg/dL High: 160-189 mg/dL Very High: >189 mg/dL 25 FASTING 26 Because ethnic data is not always readily [...] 15-29 5 Kidney failure <15 (or dialysis) 27 Desirable <150 Borderline high 150-199 High 200-499 Very High >500 28 Desirable <200 Borderline high 200-239 High >239 29 Low <40 Desirable: 40-60 High: >60 30 Desirable <100 Near Optimal 100-129 Borderline high 130-159 High 160-189 Very High >189 31 -- REFERENCE VALUE -- 25-HYDROXY D TOTAL (D2+D3) Optimum levels in the healthy population are 20-50, patients with bone disease may benefit from higher levels within this range. Test Performed by: [place] [address] Journeyman Powerhouse Operator: Eulalio Guillen III, M.D. 32 HDL Interpretation: Undesirable: High Risk: Less than 40 mg/dL Desirable: Low Risk: Greater than 60 mg/dL 33 LDL Interpretation: Low Risk Optimal Level: LDL Less than 100 mg/dL Near or Above Optimal: LDL 100-129 mg/dL Borderline High Risk: LDL 130-159 mg/dL High Risk: LDL 160-189 mg/dL Very High Risk: LDL Greater than 189 mg/dL 34 Low reactive results are indeterminate. This sample has been reflexed for additional testing. 35 FASTING 10 HOUR 36 FASTING 10 HOUR 37 FASTING 10 HOUR 38 Result in log IU/mL is Undetected. The quantification range of this assay is 15 to 100,000,000 IU/mL (1.18 log to 8.00 log IU/mL). Testing was performed by the [employer] AmpliPrep/IMAN TaqMan HCV Test, version 2.0 ([employer] Test Performed by: [place] [address] Journeyman Powerhouse Operator: Eulalio Guillen III, M.D. 39 -- REFERENCE VALUE -- 25-HYDROXY D TOTAL (D2+D3) Optimum levels in the normal population are 25-80 Test Performed by: [place] [address] Journeyman Powerhouse Operator: Eulalio Guillen III, M.D. 40 Result in log IU/mL is Undetected. The quantification range of this assay is 43 IU/mL to 69,000,000 IU/mL (1.63 log IU/mL to 7.84 log IU/mL). Testing was performed by the [employer] AmpliPrep/IMAN TaqMan HCV Test ([employer] Test Performed by: [place] [address] Journeyman Powerhouse Operator: Eulalio Guillen III, M.D. 41 Test Performed by: [place] [id number] [employer] Operator: Eulalio Guillen III, M.D. 42 HDL Interpretation: Undesirable: High Risk: Less than 40 mg/dL Desirable: Low Risk: Greater than 60 mg/dL 43 LDL Interpretation: Low Risk Optimal Level: LDL Less than 100 mg/dL Near or Above Optimal: LDL 100-129 mg/dL Borderline High Risk: LDL 130-159 mg/dL High Risk: LDL 160-189 mg/dL Very High Risk: LDL Greater than 189 mg/dL 44 RUN DATE: 11/27/12 [facility] LAB LIVE PAGE 1 RUN TIME: [address] [place], [place] [address] Specimen Inquiry Name: ANDREW SIMS : [address]: Meagan Bynum MD Acct: [id number] Unit: [id number] AGE: 72 Location: [facility] Re11/25/12 SEX: F Status: REG REF SPEC: [id number] ASHLEY: 11/25/12-[address]: Meagan Bynum MD REQ: [id number] RECD: 11/25/122480 STATUS: COMP _ SOURCE: URINE SPDESC: ORDERED: Urine Culture QUERIES: Medent Number [id number] Procedure Result Verified Site Urine Culture Final 11/27/12- 1012 ML Organism 1 STREP GROUP B [place] Count 10-25,000 (Moderate) CFU/ML Susceptibility testing of penicillins and other B-lactams approved by FDA for treatment of Streptococcus pyogenes (Group A Strep) and Streptococcus agalactiae (Group B Strep) is not necessary for clinical purposes and need not be done routinely, since as with vancomycin, resistant strains have not been recognized. (CLSI P090-V90;p.66) Positive isolates will be saved for one week. Please call the Microbiology Laboratory if further susceptibility testing is needed. END OF REPORT * ML=Testing performed at Main Lab DEPARTMENT OF PATHOLOGY, [address] [place] [address] Panfilo Somers M.D. Director [facility] Permit #[id number] 45 HDL Interpretation: Undesirable: High Risk: Less than 40 mg/dL Desirable: Low Risk: Greater than 60 mg/dL 46 LDL Interpretation: Low Risk Optimal Level: LDL Less than 100 mg/dL Near or Above Optimal: LDL 100-129 mg/dL Borderline High Risk: LDL 130-159 mg/dL High Risk: LDL 160-189 mg/dL Very High Risk: LDL Greater than 189 mg/dL 47 Because ethnic data is not always readily [...] 15-29 5 Kidney failure <15 (or dialysis) 48 Result in log IU/mL is Undetected. The quantification range of this assay is 43 IU/mL to 69,000,000 IU/mL (1.63 log IU/mL to 7.84 log IU/mL). Testing was performed by the [employer]AN AmpliPrep/IMAN TaqMan HCV Test ([employer] Test Performed by: [place] [address] [employer] Operator: Eulalio Guillen III, M.D. 49 FASTING 50 RUN DATE: 09/24/12 [facility] LAB LIVE PAGE 1 RUN TIME: [address] [place] [address] Specimen Inquiry Name: ANDREW SIMS : [address]: Meagan Bynum MD Acct: [id number] Unit: [id number] AGE: 71 Location: [facility] Re09/22/12 SEX: F Status: REG REF SPEC: [id number] ASHLEY: 09/22/12-[address]: Meagan Bynum MD REQ: [id number] RECD: 09/22/12 STATUS: COMP _ SOURCE: URINE SPDESC: ORDERED: Urine Culture QUERIES: Medent Number [id number] Procedure Result Verified Site Urine Culture Final 09/24/12- 1037 ML No Growth Day 2 (<1,000 CFU/mL) END OF REPORT * ML=Testing performed at Main Lab DEPARTMENT OF PATHOLOGY, [address] [place] [address] Panfilo Somers M.D. Director [facility] Permit #[id number] Procedures Date CPT Code Description Status Comment 12/29/2017 65035 EKG Tracing & Interpretation Completed 12/23/2017 Bone Mineral Density Test Completed 12/23/2017 Mammogram Completed 12/21/2017 00198 EKG Tracing & Interpretation Completed 12/09/2017 39927 EKG Tracing & Interpretation Completed 12/02/2017 57888 Polysomnography Sleep Staging 4+ Completed Parameters W/Cpap 12/01/2017 18076 EKG Tracing & Interpretation Completed 11/17/2017 32345 Moderate Sedation Services; Same Completed Phys Intl 15 Mins; PT >=5 Years 11/17/2017 45021 Color Flow Doppler/Interp & Reprt Completed 11/17/2017 59589 Pulse Wave/Continuous-Interp.RPT Completed 11/17/2017 74643 Echocardiography, Transesophageal, Completed Real Time W/Image 2D W/W/O M-M 11/17/2017 96760 Cardioversion Completed 09/21/2017 Colonoscopy Completed 03/04/2017 66485 Polysomnography Sleep Staging 4+ Completed Parameters 02/03/2017 76559 Myocardial Perfusion Imaging Completed Tomographic (Spect) Multiple Studies 02/03/2017 90220 Stress Test Completed 01/19/2017 24918 EKG Tracing & Interpretation Completed 12/16/2016 40418 ECHO Transthorasic Realtime 2D W Completed Doppler & Color Flow Hosp 12/16/2016 Mammogram Completed 12/16/2016 Bone Mineral Density Test Completed 10/21/2016 99964 EKG Tracing & Interpretation Completed 06/29/2016 08016 Inject/Drain Joint/Bursa Major W/O Completed US 01/10/2016 13607 Inject/Drain Joint/Bursa Major W/O Completed US 03/28/2015 Bone Mineral Density Test Completed 03/28/2015 Mammogram Completed 03/07/2014 Mammogram Completed 03/02/2013 Bone Mineral Density Test Completed 03/02/2013 Mammogram Completed 12/29/2012 69085 EKG Tracing & Interpretation Completed 07/26/2007 Colonoscopy Completed 11/24/2004 Colonoscopy Completed next due in 2018 Encounters Type Date Location Provider CPT E/M Dx Office Visit 01/05/2018 [facility] Carolina Copeland M.D. 64104 K29.00 10:50a - [place] M85.89 Z23 Office Visit 12/21/2017 10:00a [facility] [place] [address] I48.0 [facility] FAC I50.32 I10 D64.9 E66.8 N18.9 G47.33 Z87.11 Office Visit 12/01/2017 2:20p [facility] [place] [address] I48.0 [facility] FACC D64.9 I10 E66.8 N18.9 G47.33 Office Visit 11/23/2017 8:30a [facility] Carolina Copeland M.D. 26524 I48.0 - [place] I49.5 I50.31 E87.6 K29.00 K59.03 Office Visit 11/20/2017 11:30a [facility], Kiersten Richards, 83275 I48.91 Hospitalists M.DMaryellen I49.5 I50.30 D50.9 K25.9 I10 M54.5 E78.5 Office Visit 11/19/2017 11:30a [facility], Kiersten Richards, 80420 I48.0 Hospitalists M.D. I49.5 I50.20 D64.9 N18.9 I10 Office Visit 11/18/2017 11:30a [facility], Kiersten Richards, 43504 I48.0 Hospitalists M.D. I49.5 I50.31 D64.9 N18.9 I10 G47.33 Office Visit 11/17/2017 11:29a [facility], Kiersten Richards, 33628 I49.5 Hospitalists M.D. I48.0 I50.20 N17.9 I10 G47.33 Office Visit 11/17/2017 1:06p [facility] Marcy Gonzalez M.D. 69974 I48.0 [facility] I49.5 I50.31 I10 Office Visit 11/16/2017 11:28a [facility], 34891 I48.91 Assoc, Hospitalists N.P. I50.9 I10 M54.5 E78.5 G47.33 Office Visit 10/25/2017 9:10a [facility] Carolina Copeland, [address]71 Z00.00 - Brianna Ward I10 E78.2 Z12.31 R53.83 R05 M85.89 L02.91 Office Visit 10/13/2017 8:15a [facility] Tati Garcia, 24046 G47.33 [facility] JESSICA SALGADO, POPULATION HEALTH COACH-RICKI E66.9 Z68.33 Office Visit 06/17/2017 10:00a [facility] Denys Toney M.D. [address] E78.2 M25.531 Office Visit 06/09/2017 11:00a [facility] Tati Garcia 17502 G47.33 [facility] JESSICA SALGADO, POPULATION HEALTH COACH-RICKI Z68.33 Office Visit 04/02/2017 9:00a [facility] Tati Garcia 72220 G47.33 [facility] JESSICA SALGADO, POPULATION HEALTH COACH-RICKI G47.14 Office Visit 02/09/2017 8:00a [facility] [place] [address] R06.83 [facility] Office Visit 01/19/2017 9:00a [facility], 34627 I35.1 [facility] DO [facility] I10 R07.9 I34.0 E78.5 Office Visit 10/21/2016 8:50a [facility] Carolina Copeland, 65207 Z00.01 - Brianna Ward I10 Z23 E78.2 Z12.31 R94.31 G47.30 Z86.19 M85.89 Office Visit 10/02/2016 9:30a [facility] Duran M.D. 39987 M25.561 C.M.A. M25.562 M25.462 M25.461 M17.0 Office Visit 07/29/2016 10:15a [facility] Duran M.D. 43749 M25.561 C.M.A. M25.562 M25.462 M25.461 M17.0 Office Visit 06/29/2016 10:30a [facility] Duran M.D. 91775 M25.561 C.M.A. M25.562 M25.462 M25.461 M17.0 Office Visit 01/31/2016 11:00a [facility] Duran M.D. 01207 M17.12 C.M.A. M25.562 M25.462 Office Visit 12/09/2015 8:30a [facility] Duran M.D. 52154 M17.12 C.M.A. Office Visit 11/20/2015 2:00p [facility] Carolinaahsan Copeland 00205 M25.562 - Clint Ward Office Visit 11/14/2015 8:40a [facility] Meagan Bynum 65831 M25.562 - [place] Ward Office Visit 08/29/2015 7:40a [facility] Meagan Bynum 02332 I10 - [place] N39.46 E78.2 Office Visit 08/21/2014 4:00p [facility] Meagan Bynum M.D. 50078 401.9 - [place] 724.2 919.1 Office Visit 12/19/2013 4:00p [facility] Meagan Bynum M.D. 20928 401.9 - [place] 272.2 268.9 Office Visit 10/24/2013 3:40p [facility] Meagan Bynum M.D. 54785 401.9 - [place] 272.2 268.9 724.2 Office Visit 07/06/2013 3:00p [facility] Meagan Bynum M.D. 43338 272.2 - [place] 401.9 V03.82 Office Visit 04/27/2013 11:00a [facility] Meagan Bynum M.D. 60330 401.9 - [place] 272.2 728.71 373.31 Office Visit 02/24/2013 8:40a [facility] Meagan Bynum M.D. 24061 401.9 - [place] 272.2 788.33 V76.19 627.9 V04.81 Office Visit 02/07/2013 4:00p [facility] Meagan Bynum M.D. 89992 401.9 - [place] 728.71 Office Visit 12/29/2012 1:00p [facility] Meagan Bynum M.D. 43895 V72.81 - [place] V72.81 401.9 401.9 728.71 728.71 786.2 272.2 Office Visit 11/25/2012 8:40a [facility] Meagan Bynum M.D. 15087 401.9 - [place] 368.12 788.33 Office Visit 11/11/2012 8:40a [facility] Meagan Bynum M.D. 67832 401.9 - [place] 728.71 Office Visit 10/06/2012 9:40a [facility] Meagan Bynum M.D. 51201 401.9 - [place] 786.2 616.10 Office Visit 09/22/2012 11:20a [facility] Meagan Bynum M.D. 10784 599.0 - [place] 728.71 401.9 535.50 070.54 616.10 Plan of Care Future Appointment(s):07/06/2018 8:50 am - [place] Copeland M.D. at [facility] - Mrtuzynrb21/12/2019 8:15 am - Tati Garcia DNP, RN, POPULATION HEALTH COACH -BC at [facility]02/02/2018 8:15 am - [facility] [facility] DO FAC at [facility]01/05/2018 - [place] Copeland M.D.K29.00 Acute gastritis without bleedingComments:stable with Omeprazole 20 mg once a day , continue to take itM85.89 Oth disrd of bone density and structure, multiple sitesComments:increase your calcium intake in your diet ( spinach, kale , low fat milk, cheese and yoghurt are some examples) along with walking which helps with bone lmeafvV85 Encounter for immunization
--- OUTSIDE RECORDS SUMMARY | 2018-01-27 18:40 | XMS REPORT ---
:1940 External Reference #:[id number] Author Organization [facility] Address [address] [place] [address] [place] [address] Phone [phone] Care Team Providers Name Role Phone Carolina Copeland MD Primary Care Physician Unavailable Payers Type Date Identification Numbers Payment Provider Subscriber Medicare Primary Effective: Policy Number: [id number] Medicare Ngim Mao 2012 PayID: [id number] [address] [place] [address] [facility] Part B Policy Number: [id number] Medicaid Ngjulius Mao PayID: [id number] [address] [place] [address] Problems Date Description Provider Status Onset: 09/22/2012 [...] Hx Text finished grade 3 originally from [facility] has been in [place] since 2002 [...] ER 10mg 90tab 1 po qd 788.33 Megaan Chloride 24HR s Steve Bynum M.D. 02/20 Vesicare 02/24 Hx Tablets 10mg 30tab 1 po qd 788.33 Meagan /2013 Steve Gar M.D. 07/06 Lisinopril 02/07 Hx Tablets [...] CPT Code Status Date Vaccine Lot # [id number] Given 01/05/2018 Influenza Virus Vaccine, Quadrivalent, Split, [id number] Preservative Free 53120 Given 10/21/2016 Tdap - Tetanus/Diptheria/Acellular Pertussis [id number] 38208 Given 10/21/2016 Pneumococcal Conjugate Vaccine 13 Valent For [id number] Intramuscular Use 83069 Given 03/01/2015 Influenza Virus Vaccine, Quadrivalent, Split, [id number] Preservative Free 38842 Given 02/20/2014 Flu Vaccine Split Virus Preservative Free For [id number] Indiv 3Yr Older 58317 Given 07/06/2013 Pneumonia Vaccine [id number] 94974 Given 02/24/2013 Flu Vaccine Split Virus Preservative [...] Color Yellow Urine Appearance Clear Urine Specific Hilliard 1.016 1.010-1.030 Urine pH 6.0 5-9 Urine [...] 100 43 Ua Routine 11/25/2012 Ua Specific Hilliard 1.010 Ua PH 5 Ua Color dark [...] 49 Horm) Ua Routine 09/22/2012 Ua Specific [place]ard 1.015 Ua PH 5 Ua Color dark yellow Ua Appera clear Ua WBC trace Ua Protein neg Ua Glucose neg Ua Ketones neg Ua Bilirubin neg Ua Urobilinogen neg Ua Nitrite neg Ua Occult Blood neg Urine Culture And Sensitivities 09/22/2012 Urine Culture (SEE NOTE) 50 1 Fly Fishing Guide: [id number] 2 [place] Severe Sepsis and Septic Shock [...] [address]: Kiersten Candelario MD Acct: [id number] Unit: [id number] AGE: 77 Location: ICU [id number] Re11/16/17 SEX: F Status: ADM IN SPEC: [id number] ASHLEY: 11/16/[address]: Sarthak Fabian MD REQ: [id number] RECD: 11/16/17 STATUS: COMP OTHR DR: Carolina Copeland MD _ SOURCE: URINE [facility]: ORDERED: Urine Culture Procedure Result Reported Site Urine Culture Final 11/17/17- 1554 ML No growth of clinically significant organisms * ML - Main Lab . END OF REPORT DEPARTMENT OF PATHOLOGY, [address] [place] [address] Panfilo Somers M.D. Director [facility] # [id number] 5 Because ethnic data is not always [...] [address]: Jaren Hernandez MD Acct: [id number] Unit: [id number] AGE: 74 Location: [facility] Re08/06/15 SEX: F Status: DEP ER SPEC: [id number] ASHLEY: 08/06/15-[address] [facility] [address]: Jaren Hernandez MD REQ: [id number] RECD: 08/07/15 STATUS: PATRICK NO DR: Meagan [...] ON NEXT PAGE * ML=Testing performed at [facility] DEPARTMENT OF PATHOLOGY, [address] [place] [address] Panfilo Somers M.D. Director [facility] # [id number] Patient: LEVIANDREW [id number] (Continued) Specimen: [id number] Collected: 08/06/15 Received: 08/07/15-1133 (Continued) Procedure Result Reported Site Trichomonas: Vaginal DNA Probe Final (continued) 08/07/15- 1405 The presence or absence of T. vaginalis cannot be used as a test for therapeutic success or failure. * ML - MAIN LAB ([facility]) . END OF REPORT * ML=Testing performed at Main Lab DEPARTMENT OF PATHOLOGY, [address] [place] [address] Panfilo Somers M.D. Director [facility] # [id number] 18 PT IS FASTING 19 Because ethnic [...] levels within this range. Test Performed by: [place] [address]: Eulalio Guillen III, M.D. 32 HDL Interpretation: [...] AmpliPrep/IMAN TaqMan HCV Test, version 2.0 ([employer] Test Performed by: [place] [address]: Eulalio Guillen III, M.D. 39 -- REFERENCE VALUE -- 25-HYDROXY D TOTAL (D2+D3) Optimum levels in the normal population are 25-80 Test Performed by: [place] [address]: Eulalio Guillen III, M.D. 40 Result in log IU/mL is Undetected. The quantification range of this assay is 43 IU/mL to 69,000,000 IU/mL (1.63 log IU/mL to 7.84 log IU/mL). Testing was performed by the IMAN AmpliPrep/IMAN TaqMan HCV Test ([employer] Test Performed by: [place] [address]: Eulalio Guillen III, M.D. 41 Test Performed by: [place] [id number] Court Judge: Eulalio Guillen III, M.D. 42 HDL Interpretation: Undesirable: High Risk: Less than 40 mg/dL Desirable: Low Risk: Greater than 60 mg/dL 43 LDL Interpretation: Low Risk Optimal Level: LDL Less than 100 mg/dL Near or Above Optimal: LDL 100-129 mg/dL Borderline High Risk: LDL 130-159 mg/dL High Risk: LDL 160-189 mg/dL Very High Risk: LDL Greater than 189 mg/dL 44 RUN DATE: 11/27/12 [facility] LAB LIVE PAGE 1 RUN TIME: [address] [place], [place] [address] Specimen Inquiry Name: ANDREW SIMS : [address]: Meagan Bynum MD Acct: [id number] Unit: [id number] AGE: 72 Location: [facility] Re11/25/12 SEX: F Status: REG REF SPEC: [id number] ASHLEY: 11/25/12-[address]: Meagan Bynum MD REQ: [id number] RECD: 11/25/129930 STATUS: COMP _ SOURCE: URINE SPDESC: ORDERED: Urine Culture QUERIES: Med[employer] Number [id number] Procedure Result Verified Site Urine Culture Final 11/27/12- 1012 ML Organism 1 STREP GROUP B [place] Count 10-25,000 (Moderate) CFU/ML Susceptibility testing of penicillins and other B-lactams approved by FDA for treatment of Streptococcus pyogenes (Group A Strep) and Streptococcus agalactiae (Group B Strep) is not necessary for clinical purposes and need not be done routinely, since as with vancomycin, resistant strains have not been recognized. (CLSI Y233-W25;p.66) Positive isolates will be saved for one week. Please call the Microbiology Laboratory if further susceptibility testing is needed. END OF REPORT * ML=Testing performed at Main Lab DEPARTMENT OF PATHOLOGY, [address] [place] [address] Panfilo Somers M.D. Director [facility] Permit #[id number] 45 HDL Interpretation: Undesirable: High Risk: Less [...] ([employer] Test Performed by: [place] [address]: Eulalio Guillen III, M.D. 49 FASTING 50 RUN DATE: 09/24/12 [facility] LAB LIVE PAGE 1 RUN TIME: [address] [place] [address] Specimen Inquiry Name: ANDREW SIMS : [address]: Meagan Bynum MD Acct: [id number] Unit: [id number] AGE: 71 Location: [facility] Re09/22/12 SEX: F Status: REG REF SPEC: [id number] ASHLEY: 09/22/12-[address]: Meagan Bynum MD REQ: [id number] RECD: 09/22/12 STATUS: COMP _ SOURCE: URINE SPDESC: ORDERED: Urine Culture QUERIES: Medent Number [id number] Procedure Result Verified Site Urine Culture Final 09/24/12- 1037 ML No Growth Day 2 (<1,000 CFU/mL) END OF REPORT * ML=Testing performed at Main Lab DEPARTMENT OF PATHOLOGY, [address] [place] [address] Panfilo Somers M.D. Director [facility] Permit #[id number] Procedures Date CPT Code Description Status Comment 12/29/2017 49415 EKG Tracing & Interpretation Completed 12/23/2017 Bone Mineral Density Test Completed 12/23/2017 Mammogram Completed 12/21/2017 89841 EKG Tracing & Interpretation Completed 12/09/2017 17295 EKG Tracing & Interpretation Completed 12/02/2017 65405 Polysomnography Sleep Staging 4+ Completed Parameters W/Cpap 12/01/2017 58905 EKG Tracing & Interpretation Completed 11/17/2017 89464 Moderate Sedation Services; Same Completed Phys Intl 15 Mins; PT >=5 Years 11/17/2017 82330 Color Flow Doppler/Interp & Reprt Completed 11/17/2017 14332 Pulse Wave/Continuous-Interp.RPT Completed 11/17/2017 43573 Echocardiography, Transesophageal, Completed Real Time W/Image 2D W/W/O M-M 11/17/2017 27946 Cardioversion Completed 09/21/2017 Colonoscopy Completed 03/04/2017 17249 Polysomnography Sleep Staging 4+ Completed Parameters 02/03/2017 77593 Myocardial Perfusion Imaging Completed Tomographic (Spect) Multiple Studies 02/03/2017 63156 Stress Test Completed 01/19/2017 67892 EKG Tracing & Interpretation Completed 12/16/2016 82772 ECHO Transthorasic Realtime 2D W Completed Doppler & Color Flow Hosp 12/16/2016 Mammogram Completed 12/16/2016 Bone Mineral Density Test Completed 10/21/2016 63091 EKG Tracing & Interpretation Completed 06/29/2016 20403 Inject/Drain Joint/Bursa Major W/O Completed US 01/10/2016 18038 Inject/Drain Joint/Bursa Major W/O Completed US 03/28/2015 Bone Mineral Density Test Completed 03/28/2015 Mammogram Completed 03/07/2014 Mammogram Completed 03/02/2013 Bone Mineral Density Test Completed 03/02/2013 Mammogram Completed 12/29/2012 70011 EKG Tracing & Interpretation Completed 07/26/2007 Colonoscopy Completed 11/24/2004 Colonoscopy Completed next due in 2018 Encounters Type Date Location Provider CPT E/M Dx Office Visit 01/05/2018 [facility] Internal Medicine Carolina Copeland M.D. 36191 K29.00 10:50a - [place] M85.89 Z23 Office Visit 12/21/2017 10:00a [facility] [place] [address] I48.0 [facility] FAC I50.32 I10 D64.9 E66.8 N18.9 G47.33 Z87.11 Office Visit 12/01/2017 2:20p [facility] [place] [address] I48.0 [facility] FACC D64.9 I10 E66.8 N18.9 G47.33 Office Visit 11/23/2017 8:30a [facility] Internal Medicine Carolina Copeland M.D. 93522 I48.0 - [place] I49.5 I50.31 E87.6 K29.00 K59.03 Office Visit 11/20/2017 11:30a [facility], Kiersten Richards, 50678 I48.91 Hospitalists M.DMaryellen I49.5 I50.30 D50.9 K25.9 I10 M54.5 E78.5 Office Visit 11/19/2017 11:30a [facility], Kiersten Richards, 32401 I48.0 Hospitalists M.D. I49.5 I50.20 D64.9 N18.9 I10 Office Visit 11/18/2017 11:30a [facility], Kiersten Richards, 67012 I48.0 Hospitalists M.D. I49.5 I50.31 D64.9 N18.9 I10 G47.33 Office Visit 11/17/2017 11:29a [facility], Kiersten Richards, 71051 I49.5 Hospitalists M.D. I48.0 I50.20 N17.9 I10 G47.33 Office Visit 11/17/2017 1:06p [facility] Marcy Gonzalez M.D. 91523 I48.0 [facility] I49.5 I50.31 I10 Office Visit 11/16/2017 11:28a [facility], 44801 I48.91 Assoc, Hospitalists N.P. I50.9 I10 M54.5 E78.5 G47.33 Office Visit 10/25/2017 9:10a [facility] Internal Medicine Carolina Copeland, 44686 Z00.00 - Brianna Ward I10 E78.2 Z12.31 R53.83 R05 M85.89 L02.91 Office Visit 10/13/2017 8:15a [facility] Tati Garcia, 64080 G47.33 Services Of [facility] JESSICA SALGADO, RINKMAN-RICKI E66.9 Z68.33 Office Visit 06/17/2017 10:00a [facility] Internal Medicine Denys Toney M.D. [address] - [address] E78.2 M25.531 Office Visit 06/09/2017 11:00a [facility] Tati Garcia 86096 G47.33 Services Of [facility] JESSICA SALGADO, RINKMAN-RICKI Z68.33 Office Visit 04/02/2017 9:00a [facility] Tati Garcia 11185 G47.33 Services Of [facility] JESSICA SALGADO, RINKMAN-RICKI G47.14 Office Visit 02/09/2017 8:00a [facility] [place] [address] R06.83 Services Of [facility] Office Visit 01/19/2017 9:00a [facility], 57141 I35.1 [facility] DO [facility] I10 R07.9 I34.0 E78.5 Office Visit 10/21/2016 8:50a [facility] Internal Medicine Carolina Copeland, 59211 Z00.01 - Brianna Ward I10 Z23 E78.2 Z12.31 R94.31 G47.30 Z86.19 M85.89 Office Visit 10/02/2016 9:30a [facility] Duran M.D. 42277 M25.561 C.M.A. M25.562 M25.462 M25.461 M17.0 Office Visit 07/29/2016 10:15a [facility] Duran M.D. 91707 M25.561 C.M.A. M25.562 M25.462 M25.461 M17.0 Office Visit 06/29/2016 10:30a [facility] Duran M.D. 50681 M25.561 C.M.A. M25.562 M25.462 M25.461 M17.0 Office Visit 01/31/2016 11:00a [facility] Duran M.D. 07416 M17.12 C.M.A. M25.562 M25.462 Office Visit 12/09/2015 8:30a [facility] Duran M.D. 84284 M17.12 C.M.A. Office Visit 11/20/2015 2:00p [facility] Internal Medicine Carolinaahsan Copeland 50674 M25.562 - Clint Ward Office Visit 11/14/2015 8:40a [facility] Internal Medicine Meagan Bynum 56137 M25.562 - [place] Ward Office Visit 08/29/2015 7:40a [facility] Internal Medicine Meagan Bynum 99248 I10 - Clint Ward N39.46 E78.2 Office Visit 08/21/2014 4:00p [facility] Internal Medicine Meagan Bynum M.D. 86185 401.9 - [place] 724.2 919.1 Office Visit 12/19/2013 4:00p [facility] Internal Medicine Meagan Bynum M.D. 03633 401.9 - [place] 272.2 268.9 Office Visit 10/24/2013 3:40p [facility] Internal Medicine Meagan Bynum M.D. 46217 401.9 - [place] 272.2 268.9 724.2 Office Visit 07/06/2013 3:00p [facility] Internal Medicine Meagan Bynum M.D. 51613 272.2 - [place] 401.9 V03.82 Office Visit 04/27/2013 11:00a [facility] Internal Medicine Meagan Bynum M.D. 90805 401.9 - [place] 272.2 728.71 373.31 Office Visit 02/24/2013 8:40a [facility] Internal Medicine Meagan Bynum M.D. 89013 401.9 - [place] 272.2 788.33 V76.19 627.9 V04.81 Office Visit 02/07/2013 4:00p [facility] Internal Medicine Meagan Bynum M.D. 56754 401.9 - [place] 728.71 Office Visit 12/29/2012 1:00p [facility] Internal Medicine Meagan Bynum M.D. 28727 V72.81 - [place] V72.81 401.9 401.9 728.71 728.71 786.2 272.2 Office Visit 11/25/2012 8:40a [facility] Internal Medicine Meagan Bynum M.D. 64081 401.9 - [place] 368.12 788.33 Office Visit 11/11/2012 8:40a [facility] Internal Medicine Meagan Bynum M.D. 90271 401.9 - [place] 728.71 Office Visit 10/06/2012 9:40a [facility] Internal Medicine Meagan Bynum M.D. 20897 401.9 - [place] 786.2 616.10 Office Visit 09/22/2012 11:20a [facility] Internal Medicine Meagan Bynum M.D. 41739 599.0 - [place] 728.71 401.9 535.50 070.54 616.10 Plan of Care Future Appointment(s):07/05/2018 8:15 am - Tati Garcia DNP, RN, RINKMAN-BC at [facility]02/02/2018 8:15 am - Angelito Salmon DO FACC at [facility]01/05/2018 - Carolina Copeland M.D.K29.00 Acute gastritis without bleedingComments:stable with Omeprazole 20 mg once a day , continue to take itM85.89 Oth disrd of bone density and structure, multiple sitesComments:increase your calcium intake in your diet ( spinach, kale , low fat milk, cheese and yoghurt are some examples) along with walking which helps with bone jzivfxO47 Encounter for immunization
--- OUTSIDE RECORDS SUMMARY | 2018-01-27 18:41 | XMS REPORT ---
:1940 External Reference #:[id number] Author Organization [employer] Address [address] [place] [address] [place] [address] Phone [phone] Care Team Providers Name Role Phone Carolina Copeland MD Primary Care Physician Unavailable Payers Type Date Identification Numbers Payment Provider Subscriber Medicare Primary Effective: Policy Number: [id number] Medicare Ngim Mao 2012 PayID: [id number] [address] [place] [address] [facility] Policy Number: [id number] Medicaid Ngjulius Mao PayID: [id number] [address] [place] [address] Problems Date Description Provider Status Onset: 09/22/2012 [...] Hx Text finished grade 3 originally from [facility] has been in [place] since 2002 Allergies, Adverse Reactions, Alerts Date Description Reaction Status Severity Comments 09/22/2012 NKDA active Medications Medication Date Status Form Strength Qnty SIG Indications Ordering Provider Omeprazole 12/[address] 20mg 90cap 1 by mouth Angelito S. s every day Salmon, DO FACC Furosemide 12/01 Active Tablets 20mg 30tab 1 by mouth Angelito S. /2017 s Wednesday, , Wednesday and DO FACC Wednesday with potassium Flecainide 12/01 Active Tablets 50mg 180ta take 1 tablet I48.0 Angelito S. bs by mouth Salmon, twice a day DO FACC Atenolol 11/25 Active Tablets 25mg 90tab 1 by mouth Angelito S. s every day Salmon, DO FACC Blood Pressure 04/27 Active Misc 1unit am and pm I10 Meagan Monitor /2013 s Julia Bynum/Wilbert Ward Inflate Simvastatin 12/29 Active Tablets 10mg 90tab take 1 tablet E78.2 Carolina s at bedtime Sylvia Copeland Vitamin D3 Active 1000Units 2 tablet po Unknown /0000 daily Calcium Active 600mg 1 tablet po Unknown /0000 daily Potassium Active Tablets ER 20Meq 30tab 1 by mouth Angelito S. Chloride Yesenia / s Wednesday, Salmon, ER Wednesday and DO FACC Wednesday with furosemide Eliquis Active Tablets 5mg 180ta take 1 tablet Angelito S. /0000 bs by mouth Salmon, twice a day DO FACC Polyethylene Active Packet 3350NF take 17 gram Unknown Glycol 335 Dissolved In Water by mouth once daily Hold For Loose Sto Amlodipine Active Tablets 5mg 90tab take 1 tablet Angelito S. Besylate / s by mouth once Salmon, daily DO FACC Shingrix 10/25 Hx Suspension 50mcg 1unit intramuscular Rec s x 1 then Dinroah, - repeat in 4 M.DMaryellen Naproxen 06/17 Hx Tablets 375mg 30tab twice a day M25.531 Denys /2017 s with food Feng Wilson M.D. 10/25 Meloxicam 06/29 Hx Tablets 15mg 60tab 1 by mouth s every day Steve Duran M.D. 04/02 Meloxicam 11/13 Hx Tablets 7.5mg 90tab 1 by mouth M25.562 Sarthak Sears /2015 s once a day Steve Anderson M.D. 01/30 Knee Support 11/13 Hx Misc 2unit as needed dx: M25.562 Carolina W/Stabilizerpa /2015 s m25.562 jorgito Copeland/Mark/X-L Steve Ward arge 04/02 Oxybutynin 08/28 Hx Tablets ER 10mg 90tab 1 po qd N39.46 Meagan Chloride ER /2015 24HR Steve Gar M.D. 10/21 Oxybutynin 03/01 Hx Tablets ER 10mg 90tab 1 po qd N39.46 Meagan Chloride ER /2014 24HR s Steve Bynum M.D. 08/28 Calcium And 07/06 Hx Meagan Vitamind Wolfgang Bynum M.D. 01/18 Oxybutynin 07/06 Hx Tablets ER 10mg 90tab 1 po qd 788.33 Meagan Chloride /2013 24HR s Steve Bynum M.D. 02/20 Vesicare [...] 10mg 30tab 1 po qd 401.9 Meagan Steve Gar M.D. 02/07 Lisinopril 11/25 Hx Tablets 5mg 30tab 1 po qd 401.9 Steve Gar M.D. 12/23 Oxybutynin 11/25 Hx Tablets ER 10mg 90tab 1 po qd 788.33 Meagan Chloride 24HR Steve Gar M.D. 02/07 Tessalon 10/06 Hx Capsules 100mg 30cap 1 tab po 3x 786.2 Meagan s per day Steve Bynum M.D. 11/11 Metronidazole 10/06 Hx Gel 0.75% 1tube 1 applicator 616.10 Meagan Vaginal intravaginal Steve Bynum for 7 days M.DMaryellen 11/11 Atenolol 10/06 Hx Tablets 50mg 90tab 1 tab by I10 s mouth at Dinorah, - bedtime M.J Luis 11/23 Atenolol 09/22 Hx Tablets 25mg 90tab 1 po qd 401.9 Steve Gar M.D. 10/06 Fluconazole 09/22 Hx Tablets 150mg 2tabs 1 po then 616.10 Meagan /2013 repeat x1 in Steve Bynum 1week Sylvia [...] Hx Cream 2% apply twice a Unknown / day - 02/08 Acetaminophen Hx Tablets 500mg 1-2 tabs 3x a Unknown /0000 day as needed - 02/08 Sulfamethoxazo Hx Tablets 800-160mg 1 by mouth Unknown le/Trimethopri /0000 twice a day m DS - 10/28 Fluconazole 00 Hx Tablets 150mg one by mouth Unknown /0000 may repeat in - 3 days as 11/23 needed /2018 Omeprazole [address] 40mg 90cap take 1 Angelito S. /0000 s capsule by Salmon, - mouth once DO FACC 12/21 /2018 Furosemide 0000 Hx Tablets 20mg take 1 tablet Unknown /0000 by mouth once - daily 12/01 Multaq 00/00 Hx Tablets 400mg 20tab 1 by mouth Angelito S. /0000 s twice a day Luis Antonio, - DO FACC 11/25 Medications Administered in Office Medication Date Status Form Strength Qnty SIG Indications Ordering Provider Inj, Administered Injection Angelito S. Regadenoson, 017 Salmon, DO 0.1 MG FACC Technetium TC Administered Injection Angelito S. 99M 017 Salmon, DO Tetrofosmin, FACC Per Unit Dose Up To 40 Millicuries Depomedrol Administered Injection America 40MG 017 Sylvia Duran Depomedrol Administered Injection [place] 40MG 017 Sylvia Duran Depomedrol Administered Injection [place] 40MG 016 Sylvia Duran Immunizations CPT Code Status Date Vaccine Lot # [id number] Given 10/21/2016 Tdap - Tetanus/Diptheria/Acellular Pertussis [id number] 73414 Given 10/21/2016 Pneumococcal Conjugate Vaccine 13 Valent For [id number] Intramuscular Use 31458 Given 03/01/2015 Influenza Virus Vaccine, Quadrivalent, Split, [id number] Preservative Free 95844 Given 02/20/2014 Flu Vaccine Split Virus Preservative Free For [id number] Indiv 3Yr Older 92686 Given 07/06/2013 Pneumonia Vaccine [id number] 46747 Given 02/24/2013 Flu Vaccine Split Virus Preservative [...] Color Yellow Urine Appearance Clear Urine Specific Plessis 1.016 1.010-1.030 Urine pH 6.0 5-9 Urine [...] 100 43 Ua Routine 11/25/2012 Ua Specific Plessis 1.010 Ua PH 5 Ua Color dark [...] 49 Horm) Ua Routine 09/22/2012 Ua Specific Plessis 1.015 Ua PH 5 Ua Color dark yellow Ua Appera clear Ua WBC trace Ua Protein neg Ua Glucose neg Ua Ketones neg Ua Bilirubin neg Ua Urobilinogen neg Ua Nitrite neg Ua Occult Blood neg Urine Culture And Sensitivities 09/22/2012 Urine Culture (SEE NOTE) 50 1 Manager Of Loss Prevention Operations: [id number] [facility] Severe Sepsis and Septic Shock Management Bundle [...] [address]: Kiersten Candelario MD Acct: [id number] Unit: [id number] AGE: 77 Location: ICU [id number] Re11/16/17 SEX: F Status: ADM IN SPEC: [id number] ASHLEY: 11/16/17 [facility] DR: Sarthak Fabian MD REQ: [id number] RECD: 11/16/17 STATUS: PATRICK NO DR: Carolina Copeland MD _ SOURCE: URINE SPDESC: ORDERED: Urine Culture Procedure Result Reported Site Urine Culture Final 11/17/17- 1554 ML No growth of clinically significant organisms * ML - Main Lab . END OF REPORT DEPARTMENT OF PATHOLOGY, [address] [place] [address] Panfilo Somers M.D. Director [facility] # [id number] 5 Because ethnic data is not always [...] mg/dL 17 SEE RESULT BELOW Name: ANDREW ISMS : [address]: Jaren Hernandez MD Acct: [id number] Unit: [id number] AGE: 74 Location: [facility] Re08/06/15 SEX: F Status: DEP ER SPEC: [id number] ASHLEY: 08/06/15 [facility] [address]: Jaren Hernandez MD REQ: [id number] RECD: 08/07/15 STATUS: PATRICK NO DR: Meagan [...] ON NEXT PAGE * ML=Testing performed at Main Lab DEPARTMENT OF PATHOLOGY, [address] [place] [address] Panfilo Somers M.D. Director [facility] # [id number] Patient: LEVIANDREW [id number] (Continued) Specimen: [id number] Collected: 08/06/15 Received: 08/07/15-1133 (Continued) Procedure Result Reported Site Trichomonas: Vaginal DNA Probe Final (continued) 08/07/15- 140 The presence or absence of T. vaginalis cannot be used as a test for therapeutic success or failure. * ML - MAIN LAB ([facility]) . END OF REPORT * ML=Testing performed at Main Lab DEPARTMENT OF PATHOLOGY, [address] [place] [address] Panfilo Somers M.D. Director [facility] # [id number] 18 PT IS FASTING 19 Because ethnic [...] levels within this range. Test Performed by: [facility] [address] [address] [place] Selector: Eulalio Guillen III, M.D. 32 HDL Interpretation: [...] AmpliPrep/IMAN TaqMan HCV Test, version 2.0 ([employer]). Test Performed by: [place] [address] [place] Selector: Eulalio Guillen III, M.D. 39 -- REFERENCE VALUE -- 25-HYDROXY D TOTAL (D2+D3) Optimum levels in the normal population are 25-80 Test Performed by: [place] [address] [place] Selector: Eulalio Guillen III, M.D. 40 Result in log IU/mL is Undetected. The quantification range of this assay is 43 IU/mL to 69,000,000 IU/mL (1.63 log IU/mL to 7.84 log IU/mL). Testing was performed by the IMAN ClairiPrep/IMAN TaqMan HCV Test ([employer]). Test Performed by: [place] [address] [place] [employer]or: Eulalio Guillen III, M.D. 41 Test Performed by: [place] [address] [place] [employer]or: Eulalio Guillen III, M.D. 42 HDL Interpretation: Undesirable: High Risk: Less than 40 mg/dL Desirable: Low Risk: Greater than 60 mg/dL 43 LDL Interpretation: Low Risk Optimal Level: LDL Less than 100 mg/dL Near or Above Optimal: LDL 100-129 mg/dL Borderline High Risk: LDL 130-159 mg/dL High Risk: LDL 160-189 mg/dL Very High Risk: LDL Greater than 189 mg/dL 44 RUN DATE: 11/27/12 [facility] LAB LIVE PAGE 1 RUN TIME: [address] [place] [address] Specimen Inquiry Name: ANDREW SIMS : [address]: Meagan Bynum MD Acct: [id number] Unit: [id number] AGE: 72 Location: [facility] Re11/25/12 SEX: F Status: REG REF SPEC: [id number] ASHLEY: 11/25/12-[address]: Meagan Bynum MD REQ: [id number] RECD: 11/25/12470 STATUS: COMP _ SOURCE: URINE SPDESC: ORDERED: Urine Culture QUERIES: [employer] Number [id number] Procedure Result Verified Site Urine Culture Final 11/27/12- 1012 ML Organism 1 STREP GROUP B Springer Count 10-25,000 (Moderate) CFU/ML Susceptibility testing of penicillins and other B-lactams approved by FDA for treatment of Streptococcus pyogenes (Group A Strep) and Streptococcus agalactiae (Group B Strep) is not necessary for clinical purposes and need not be done routinely, since as with vancomycin, resistant strains have not been recognized. (CLSI L820-V83;p.66) Positive isolates will be saved for one week. Please call the Microbiology Laboratory if further susceptibility testing is needed. END OF REPORT * ML=Testing performed at Main Lab DEPARTMENT OF PATHOLOGY, [address] [place] [address] Panfilo Somers M.D. Director [facility] Permit #[id number] 45 HDL Interpretation: Undesirable: High Risk: Less [...] the IMAN AmpliPrep/IMAN TaqMan HCV Test ([employer] Test Performed by: [address] [address] [place] Selector: Eulalio Guillen III, M.D. 49 FASTING 50 RUN DATE: 09/24/12 [facility] LAB LIVE PAGE 1 RUN TIME: [address] [place] [address] Specimen Inquiry Name: ANDREW SIMS : [address]: Meagan Bynum MD Acct: [id number] Unit: [id number] AGE: 71 Location: [facility] Re09/22/12 SEX: F Status: REG REF SPEC: [id number] ASHLEY: 09/22/12-[address] [facility] [address]: Meagan Bynum MD REQ: [id number] RECD: 09/22/12 STATUS: COMP _ SOURCE: URINE SPDESC: ORDERED: Urine Culture QUERIES: [employer] Number [id number] Procedure Result Verified Site Urine Culture Final 09/24/12- 1037 ML No Growth Day 2 (<1,000 CFU/mL) END OF REPORT * ML=Testing performed at Main Lab DEPARTMENT OF PATHOLOGY, [address] [place] [address] Panfilo Somers M.D. Director [facility] Permit #[id number] Procedures Date CPT Code Description Status Comment 12/29/2017 61281 EKG Tracing & Interpretation Completed 12/23/2017 Bone Mineral Density Test Completed 12/23/2017 Mammogram Completed 12/21/2017 35778 EKG Tracing & Interpretation Completed 12/09/2017 01355 EKG Tracing & Interpretation Completed 12/02/2017 83736 Polysomnography Sleep Staging 4+ Completed Parameters W/Cpap 12/01/2017 85789 EKG Tracing & Interpretation Completed 11/17/2017 92767 Moderate Sedation Services; Same Completed Phys Intl 15 Mins; PT >=5 Years 11/17/2017 60357 Color Flow Doppler/Interp & Reprt Completed 11/17/2017 54161 Pulse Wave/Continuous-Interp.RPT Completed 11/17/2017 76397 Echocardiography, Transesophageal, Completed Real Time W/Image 2D W/W/O M-M 11/17/2017 55690 Cardioversion Completed 09/21/2017 Colonoscopy Completed 03/04/2017 69620 Polysomnography Sleep Staging 4+ Completed Parameters 02/03/2017 19775 Myocardial Perfusion Imaging Completed Tomographic (Spect) Multiple Studies 02/03/2017 25615 Stress Test Completed 01/19/2017 97151 EKG Tracing & Interpretation Completed 12/16/2016 53990 ECHO Transthorasic Realtime 2D W Completed Doppler & Color Flow Hosp 12/16/2016 Mammogram Completed 12/16/2016 Bone Mineral Density Test Completed 10/21/2016 04979 EKG Tracing & Interpretation Completed 06/29/2016 09154 Inject/Drain Joint/Bursa Major W/O Completed US 01/10/2016 07246 Inject/Drain Joint/Bursa Major W/O Completed US 03/28/2015 Bone Mineral Density Test Completed 03/28/2015 Mammogram Completed 03/07/2014 Mammogram Completed 03/02/2013 Bone Mineral Density Test Completed 03/02/2013 Mammogram Completed 12/29/2012 43547 EKG Tracing & Interpretation Completed 07/26/2007 Colonoscopy Completed 11/24/2004 Colonoscopy Completed next due in 2018 Encounters Type Date Location Provider CPT E/M Dx Office Visit 12/21/2017 [facility] [place] [address] I48.0 10:00a [facility] FACC I50.32 I10 D64.9 E66.8 N18.9 G47.33 Z87.11 Office Visit 12/01/2017 2:20p [place] [address] I48.0 [facility] FACC D64.9 I10 E66.8 N18.9 G47.33 Office Visit 11/23/2017 8:30a [facility] Internal Medicine Carolina Copeland M.D. 17143 I48.0 - [place] I49.5 I50.31 E87.6 K29.00 K59.03 Office Visit 11/20/2017 11:30a [facility], Kiersten Johnsonima, 42736 I48.91 Hospitalists M.D. I49.5 I50.30 D50.9 K25.9 I10 M54.5 E78.5 Office Visit 11/19/2017 11:30a [facility], Kiersten Maurice, [address] I48.0 Hospitalists M.D. I49.5 I50.20 D64.9 N18.9 I10 Office Visit 11/18/2017 11:30a [facility], Kiersten Maurice, [address] I48.0 Hospitalists M.D. I49.5 I50.31 D64.9 N18.9 I10 G47.33 Office Visit 11/17/2017 11:29a [facility], Kiersten Maurice, [address]195 I49.5 Hospitalists M.D. I48.0 I50.20 N17.9 I10 G47.33 Office Visit 11/17/2017 1:06p [facility] Of Marcy Gonzalez M.D. [address]4723 I48.0 [facility] I49.5 I50.31 I10 Office Visit 11/16/2017 11:28a [facility], [address] I48.91 Assoc, Hospitalists N.P. I50.9 I10 M54.5 E78.5 G47.33 Office Visit 10/25/2017 9:10a [facility] Internal Medicine Carolina Copeland, [address] Z00.00 - Brianna Ward I10 E78.2 Z12.31 R53.83 R05 M85.89 L02.91 Office Visit 10/13/2017 8:15a [facility] Tati Garcia, [address] G47.33 [facility] NAOMI RN, CUT OFF SAWYER LOG-BC E66.9 Z68.33 Office Visit 06/17/2017 10:00a [facility] Internal Medicine Denys Toney M.D. [address] I10 - [address] E78.2 M25.531 Office Visit 06/09/2017 11:00a [facility] Tati Garcia, [address]594 G47.33 [facility] NAOMI RN, [facility] Z68.33 Office Visit 04/02/2017 9:00a [facility] Tati Garcia, 61453 G47.33 [facility] JESSICA SALGADO, [facility] G47.14 Office Visit 02/09/2017 8:00a [facility] [place] [address] R06.83 [facility] Office Visit 01/19/2017 9:00a [facility] Of Angelito Salmon, 100[address] I35.1 [facility] DO FACC I10 R07.9 I34.0 E78.5 Office Visit 10/21/2016 8:50a [facility] Internal Medicine Carolina Copeland [address]67 Z00.01 Steve Reed M.D. I10 Z23 E78.2 Z12.31 R94.31 G47.30 Z86.19 M85.89 Office Visit 10/02/2016 9:30a [facility] Duran M.D. 48929 M25.561 C.M.A. M25.562 M25.462 M25.461 M17.0 Office Visit 07/29/2016 10:15a [facility] Duran M.D. 58773 M25.561 C.M.A. M25.562 M25.462 M25.461 M17.0 Office Visit 06/29/2016 10:30a [facility] Duran M.D. 32331 M25.561 C.M.A. M25.562 M25.462 M25.461 M17.0 Office Visit 01/31/2016 11:00a [facility] Duran M.D. 28611 M17.12 C.M.A. M25.562 M25.462 Office Visit 12/09/2015 8:30a [facility] Duran M.D. 81565 M17.12 C.M.A. Office Visit 11/20/2015 2:00p [facility] Internal Medicine Carolina Copeland 12727 M25.562 - Clint Ward Office Visit 11/14/2015 8:40a [facility] Internal Medicine Meagan Bynum, 13588 M25.562 - Clint Ward Office Visit 08/29/2015 7:40a [facility] Internal Medicine Meagan Bynum 22538 I10 - Clint Ward N39.46 E78.2 Office Visit 08/21/2014 4:00p [facility] Internal Medicine Meagan Bynum M.D. 02504 401.9 - [place] 724.2 919.1 Office Visit 12/19/2013 4:00p [facility] Internal Medicine Meagan Bynum M.D. 19097 401.9 - [place] 272.2 268.9 Office Visit 10/24/2013 3:40p [facility] Internal Medicine Meagan Bynum M.D. 65190 401.9 - [place] 272.2 268.9 724.2 Office Visit 07/06/2013 3:00p [facility] Internal Medicine Meagan Bynum M.D. 76878 272.2 - [place] 401.9 V03.82 Office Visit 04/27/2013 11:00a [facility] Internal Medicine Meagan Bynum M.D. 76038 401.9 - [place] 272.2 728.71 373.31 Office Visit 02/24/2013 8:40a [facility] Internal Medicine Meagan Bynum M.D. 98776 401.9 - [place] 272.2 788.33 V76.19 627.9 V04.81 Office Visit 02/07/2013 4:00p [facility] Internal Medicine Meagan Bynum M.D. 91063 401.9 - [place] 728.71 Office Visit 12/29/2012 1:00p [facility] Internal Medicine Meagan Bynum M.D. 60919 V72.81 - [place] V72.81 401.9 401.9 728.71 728.71 786.2 272.2 Office Visit 11/25/2012 8:40a [facility] Internal Medicine Meagan Bynum M.D. 43183 401.9 - [place] 368.12 788.33 Office Visit 11/11/2012 8:40a [facility] Internal Medicine Meagan Bynum M.D. 91087 401.9 - [place] 728.71 Office Visit 10/06/2012 9:40a [facility] Internal Medicine Meagan Bynum M.D. 79153 401.9 - [place] 786.2 616.10 Office Visit 09/22/2012 11:20a [facility] Internal Medicine Meagan Bynum M.D. 43672 599.0 - [place] 728.71 401.9 535.50 070.54 616.10 Plan of Care Future Appointment(s):07/05/2018 8:15 am - Tati Garcia DNP, RN, CUT OFF SAWYER LOG-BC at [facility]02/02/2018 8:15 am - Angelito Salmon DO [facility] at [facility]01/05/2018 - Tati Garcia DNP, RN, CUT OFF SAWYER LOG- BCG47.33 Obstructive sleep apnea (adult) (pediatric)New Orders:Sleep- HomecareComments:On BiPAP AHI 2.4 / hour normalFollow up:6 monthsRecommendations :With the BiPAP the forehead pain and runny nose is stopped and she is tolerating this machine better. Continue BiPAP device, IPAP max 10 , EPAP 4, PS 4. Benefitting and compliant with treatment. Cleaning Wipe off mask daily ( baby wipe-no scent, or warm water) Clean mask, tubing, filter, and water chamber weekly in mild no scent dish soap and water. Hang to dry. So-Clean is an option (not coveredby insurance) If you have any sleepiness while driving you MUST avoid operating a vehicle or machinery. If you have difficulty with your equipment, or need to replace your mask or hoses, please contact your homecare agency. A weight change of 20 pounds or more may have an effect on your equipment; ifyou are experiencing problems please call for an appointment. If you have any further questions, please call the [facility] at [phone].Z99.32 Body mass index (BMI) 32.0-32.9, adultRecommendations: Continue with weight loss, avoid weight gain
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
[2018-01-27 18:53] VITALS: BP 170/86
[2018-01-27] MEDS ORDERED: Lidocaine 2% PF * 5 ML VIAL INJ ONE (19:23)
[2018-01-27] MEDS ORDERED: Gelfoam 12-7 ADSORBABL SPONGE* 1 EA SPONGE TOPICAL ONE (19:31)
[2018-01-27] MEDS ORDERED: Gelfoam 12-7 ADSORBABL SPONGE* 1 EA SPONGE ONE (19:32)
--- NOTE | 2018-01-28 07:44 | RAD ---
HISTORY: Pain great toe COMPARISONS: None VIEWS: 3 , Frontal, lateral, and oblique views of the right foot . Evaluation is limited by artifact from overlying gauze on the first digit. FINDINGS: BONE DENSITY: Normal. BONES: There is a nondisplaced fracture of the proximal phalanx of the first digit with articular extension. There is a questionable nondisplaced fracture of the body of the distal phalanx of the first digit. There are plantar calcaneal enthesophytes. JOINTS: There is no arthropathy. ALIGNMENT: There is no dislocation. SOFT TISSUES: Unremarkable. OTHER FINDINGS: None. IMPRESSION: 1. NONDISPLACED FRACTURE OF THE PROXIMAL PHALANX OF THE FIRST DIGIT WITH ARTICULAR EXTENSION. 2. QUESTIONABLE NONDISPLACED FRACTURE OF THE DISTAL PHALANX OF THE FIRST DIGIT. R2
--- NOTE | 2018-01-28 08:38 | UC ---
- Progress Note Progress Note: Final xray revi10/5ewed fractures noted on prelim no pipe changer Ljj Discharge - Sign-Out/Discharge Documenting (check all that apply): Post-Discharge Follow Up All imaging exams completed and their final reports reviewed: Yes - Discharge Plan Condition: Stable Disposition: HOME Prescriptions: Amoxicillin/Clavulanate TAB* [Augmentin TAB 875*] 875 mg PO BID #14 tab Patient Education Materials: Toe Fracture (ED), Nail Avulsion (ED) Referrals: Sacha Thompson MD [Medical Doctor] - As Soon As Possible Carolina Copeland MD [Primary Care Provider] - Additional Instructions: If you develop a fever, shortness of breath, chest pain, new or worsening symptoms - please call your PCP or go to the ED. Your blood pressure was high at todays visit. Please see your primary provider within 4 weeks for recheck and re-evaluation. 1) Please call Orthopedics at the number below to schedule a follow up appointment as soon as possible - Billing Disposition and Condition Condition: STABLE Disposition: Home
== END 2018-01-27 20:35 | disposition home or self-care (01) ==
LOC: UCEAST 18:34
DX: S92.414A Nondisplaced fracture of proximal phalanx of right great toe, initial encounter for closed fracture (principal); S91.201A Unspecified open wound of right great toe with damage to nail, initial encounter; K21.9 Gastro-esophageal reflux disease without esophagitis; I10 Essential (primary) hypertension; B19.20 Unspecified viral hepatitis C without hepatic coma; Z79.899 Other long term (current) drug therapy; W23.0XXA Caught, crushed, jammed, or pinched between moving objects, initial encounter; Y92.9 Unspecified place or not applicable
CPT/HCPCS: 99202; A9270-GY; G0463

== ENCOUNTER 2018-08-24 16:06 | Emergency (ER) | payer MEDICARE, MEDICAID ==
[2018-08-24 16:22] VITALS: BP 197/74
--- NOTE | 2018-08-24 17:10 | UC ---
HPI Febrile Illness - HPI Summary HPI Summary: 77 yo female presents here with a three to fout day hx of fatigue and felling like her forehead is hot. Her daughter is concerned she has run a fever. no URI symptoms no UTI symptoms no CP or SOB no myalgias - History of Current Complaint Chief Complaint: UCGeneralIllness Time Seen by Provider: 08/24/18 16:50 Hx Obtained From: Patient Timing: Constant Initial Severity: Mild Current Severity: Mild Pain Intensity: 0 Pain Scale Used: 0-10 Numeric Aggravating Factors: Nothing Alleviating Factors: Nothing Associated Signs and Symptoms: Negative - Additional Pertinent History Primary Care Physician: RACHAEL - Allergy/Home Medications Allergies/Adverse Reactions: Allergies Allergy/AdvReac Type Severity Reaction Status Date / Time No Known Allergies Allergy Verified 08/24/18 16:17 PMH/Surg Hx/FS Hx/Imm Hx Previously Healthy: Yes Other History Of: Hepatitis C - Surgical History Surgical History: Yes Surgery Procedure, Year, and Place: CATARACT - Family History Known Family History: Positive: None Negative: Hypertension - Social History Alcohol Use: None Substance Use Type: None Smoking Status (MU): Never Smoked Tobacco - Immunization History Most Recent Influenza Vaccination: unknown Most Recent Tetanus Shot: UTD Most Recent Pneumonia Vaccination: 2011 Review of Systems All Other Systems Reviewed And Are Negative: Yes Constitutional: Positive: Fever - ???, Fatigue Skin: Positive: Negative Eyes: Positive: Blurred Vision - at times ENT: Positive: Negative Respiratory: Positive: Negative Cardiovascular: Positive: Negative Gastrointestinal: Positive: Negative Genitourinary: Positive: Negative Motor: Positive: Negative Neurovascular: Positive: Negative Musculoskeletal: Positive: Negative Neurological: Positive: Negative Psychological: Positive: Negative Physical Exam Triage Information Reviewed: Yes Appearance: Well-Appearing, No Pain Distress, Well-Nourished Vital Signs: Initial Vital Signs Temp 97.8 F 08/24/18 16:15 Pulse 58 08/24/18 16:15 Resp 18 08/24/18 16:15 BP 197/74 08/24/18 16:15 Pulse Ox 97 08/24/18 16:15 Vital Signs Reviewed: Yes Eyes: Positive: Conjunctiva Clear ENT: Positive: Hearing grossly normal, Uvula midline. Negative: Nasal congestion, Nasal drainage, Tonsillar swelling, Tonsillar exudate, Trismus, Muffled voice, Dental tenderness, Sinus tenderness Dental Exam: Other - upper dentures Neck: Positive: Supple, Nontender, No Lymphadenopathy Respiratory: Positive: Lungs clear, Normal breath sounds, No respiratory distress, No accessory muscle use Cardiovascular: Positive: RRR, No Murmur Abdomen Description: Positive: Nontender, No Organomegaly, Soft Bowel Sounds: Positive: Present Musculoskeletal: Positive: ROM Intact, No Edema Neurological: Positive: Alert Psychological Exam: Normal Skin Exam: Normal Course/Dx - Diagnoses Provider Diagnosis: Hypertension, Fatigue, Microscopic hematuria Discharge - Sign-Out/Discharge Documenting (check all that apply): Patient Departure All imaging exams completed and their final reports reviewed: No Studies - Discharge Plan Condition: Stable Disposition: HOME Patient Education Materials: Hypertension (ED), Fatigue (ED), Hematuria (ED) Referrals: Carolina Copeland MD [Primary Care Provider] - 1 Day (recheck in 1-2 days) - Billing Disposition and Condition Condition: STABLE Disposition: Home
[2018-08-25 13:01] LABS: ABS Basophils 0.1 10^3/ul (0-0.2); ABS Eosinophils 0.4 10^3/ul (0-0.6); ABS Lymphocytes 1.9 10^3/ul (1.0-4.8); ABS Monocytes 0.7 10^3/ul (0-0.8); ABS Neutrophils 3.5 10^3/ul (1.5-7.7); Eosinophil % 5.3 %; Hematocrit 41 % (35-47); Hemoglobin 13.1 g/dL (12.0-16.0); Lymphocyte % 29.1 %; Mean Corpuscular HGB Conc 32 g/dL (31-36); Mean Corpuscular Hemoglobin 25 pg (27-31); Mean Corpuscular Volume 78 fL (80-97); Mean Platelet Volume 10.3 fL (7.4-10.4); Nucleated Red Blood Cells % 0.1; Platelet Count 202 10^3/uL (150-450); Red Blood Count 5.25 10^6 /uL (3.70-4.87); Red Cell Distribution Width 15 % (10.5-15); White Blood Count 6.7 10^3/uL (3.5-10.8)
[2018-08-25 13:05] LABS: Albumin 4.3 g/dL (3.2-5.2); Calcium 9.4 mg/dL (8.6-10.3); Potassium 4.7 mmol/L (3.5-5.0); Total Bilirubin 0.3 mg/dL (0.2-1.0)
[2018-08-25 13:11] LABS: Albumin/Globulin Ratio 1.2 (1-3); EGFR African American 73.9 (>60); Globulin 3.7 g/dL (2-4)
--- NOTE | 2018-08-25 16:18 | UC ---
- Progress Note Progress Note: Lab work from August 24, 2018 comes back which shows an elevated glucose of 125. From the note of the same. I do not see any history of diabetes. Nursing to call patient and inform her her that the glucose is slightly elevated and she needs to get this rechecked with her primary care physician. Course/Dx - Diagnoses Provider Diagnoses: Hypertension, Fatigue, Microscopic hematuria Discharge - Sign-Out/Discharge Documenting (check all that apply): Patient Departure All imaging exams completed and their final reports reviewed: No Studies - Discharge Plan Condition: Stable Disposition: HOME Patient Education Materials: Hematuria (ED), Hypertension (ED), Fatigue (ED) Referrals: Carolina Copeland MD [Primary Care Provider] - 1 Day (recheck in 1-2 days) Additional Instructions: BP high here blood work pending urine showed microscopic evidence of blood - Billing Disposition and Condition Condition: STABLE Disposition: Home
--- NOTE | 2018-08-26 15:46 | UC ---
- Progress Note Progress Note: please notify pt possible UTi keflex eRxed Course/Dx - Diagnoses Provider Diagnoses: Hypertension, Fatigue, Microscopic hematuria Discharge - Sign-Out/Discharge Documenting (check all that apply): Post-Discharge Follow Up All imaging exams completed and their final reports reviewed: No Studies - Discharge Plan Condition: Stable Disposition: HOME Prescriptions: Cephalexin CAP* [Keflex CAP*] 500 mg PO BID #10 cap Patient Education Materials: Hematuria (ED), Hypertension (ED), Fatigue (ED) Referrals: Carolina Copeland MD [Primary Care Provider] - 1 Day (recheck in 1-2 days) Additional Instructions: BP high here blood work pending urine showed microscopic evidence of blood - Billing Disposition and Condition Condition: STABLE Disposition: Home
== END 2018-08-24 17:26 | disposition home or self-care (01) ==
LOC: UCEAST 16:06
DX: R53.83 Other fatigue (principal); R31.29 Other microscopic hematuria; I10 Essential (primary) hypertension; H53.8 Other visual disturbances
CPT/HCPCS: 36415; 80053; 81003; 85025; 87077; 87086; 87186; 99211; G0463

== ENCOUNTER 2018-09-21 11:06 | Emergency (ER) | payer MEDICAID, MEDICARE, OTHER ==
--- OUTSIDE RECORDS SUMMARY | 2018-09-21 11:16 | XMS REPORT | Continuity of Care Document ---
:1940 External Reference #:[id number] Author Name Daphne Moreira Care Team Providers Name Role Phone Carolina Copeland MD Primary Care Physician Unavailable Payers Date Identification Numbers Payment Provider Subscriber Effective: 2012 Policy Number: [id number] Medicare Ngim Mao PayID: [id number] [address] [place] [address] Policy Number: [id number] Medicaid Ngim Mao PayID: [id number] [address] [place] [address] Advance Directives Type Date Description Status Comment MOLST 10/22/2016 MOLST Current and Verified Problems Active Problems Provider Date Essential hypertension Meagan Bynum M.D. Onset: 09/22/2012 Localized, primary osteoarthritis America Duran M.D. Onset: 01/31/2016 Note: knee Osteopenia Carolina Copeland M.D. Onset: 10/21/2016 Electrocardiogram abnormal Carolina Copeland M.D. Onset: 10/21/2016 Cholelithiasis without obstruction Carolina Copeland M.D. Onset: 12/17/2016 Aortic valve regurgitation Carolina Copeland M.D. Onset: 12/21/2016 Note: mild to moderate per echo non rheumatic Sleep apnea Carolina Copeland M.D. Onset: 03/10/2017 Mixed hyperlipidemia Denys Toney M.D. Onset: 06/17/2017 Paroxysmal atrial fibrillation Carolina Copeland M.D. Onset: 11/23/2017 Hypokalemia Carolina Copeland M.D. Onset: 11/23/2017 Chronic diastolic heart failure Carolina Copeland M.D. Onset: 07/06/2018 Inactive Problems Chronic hepatitis C Meagan Bynum M.D. Onset: 09/22/2012 Inactive: 10/20/2016 Plantar fascial fibromatosis Meagan Bynum M.D. Onset: 09/22/2012 Inactive: 10/23/2016 Resolved Problems Vaginitis and vulvovaginitis Meagan Bynum M.D. Onset: 09/22/2012 Resolved: 10/21/2016 Gastroduodenitis Meagan Bynum M.D. Onset: 09/22/2012 Resolved: 10/23/2016 Acute gastritis Carolina Copeland M.D. Onset: 11/23/2017 Resolved: 07/06/2018 Drug-induced constipation Carolina Copeland M.D. Onset: 11/23/2017 Resolved: 07/06/2018 Family History Date Family Member(s) Observation Comments General Cancer Father due to at age 50 () Mother due to in 2014 () Social History Type Date Description Comments Sex Unknown Marital Status Lives With Daughter Lives With Occupation retired Occupation Homemaker Tobacco Use Start: Unknown 30 yr ago chewed tabacco Tobacco Use Start: Unknown Never Smoked Cigarettes Smoking Status Reviewed: 09/05/18 Never Smoked Cigarettes ETOH Use Rarely consumes alcohol Recreational Drug Use Denies Drug Use Tobacco Use Start: Unknown Patient has never used to chew tobacco smoked Exercise Type/Frequency Exercises regularly Treadmill 10-15 min./ day, per daughter Allergies, Adverse Reactions, Alerts Description No Known Drug Allergies Medications Active Medications SIG Qnty Indications Ordering Date Provider Metoprolol 1 by mouth every day 90tabs I48.0 Angelito Redding 07/19/2018 Succinate ER Luis Antonio, DO FACC 25mg Tablets ER 24HR Shingrix intramuscular x 1 1units Carolina Copeland, 01/05/2018 50mcg then repeat in 4 M.D. Suspension Rec months, Pt has not started yet. Flecainide Acetate take 1 tablet by 180tabs I48.0 Angelito Redding 12/01/2017 mouth twice a day Salmon, DO FACC 50mg Tablets Blood Pressure am and pm 1units I10 Meagan Bynum, 04/27/2013 Monitor M.D. Digital/Manual Inflate Misc Simvastatin take 1 tablet at 90tabs E78.2 Carolina Copeland, 12/29/2012 10mg bedtime M.D. Tablets Eliquis take 1 tablet by 180tabs Angelito S. 5mg Tablets mouth twice a day Salmon, DO FACC Amlodipine Besylate take 1 tablet by 90tabs Angelito S. mouth once daily Salmon, DO FACC 5mg Tablets History Medications Cephalexin 1 tab every six 40tabs S92.411B Sacha Thompson, 02/08/2018 - 250mg hours 03/01/2018 Tablets Omeprazole 1 by mouth every 90caps Angelito S. 12/21/2017 - 20mg day Salmon, DO FACC 07/06/[address] Furosemide not taking---1 by 30tabs Angelito S. 12/01/2017 - 20mg mouth Wednesday, Salmon, DO FACC 05/19/2018 Tablets Wednesday and Wednesday with potassium Atenolol not taking----1 by 90tabs Angelito S. 11/25/2017 - 25mg mouth every day Salmon, DO FACC 06/21/2018 Tablets Shingrix intramuscular x 1 1units Carolina Copeland, 10/25/2017 - 50mcg then repeat in 4 M.D. 01/05/2018 Suspension Rec months Naproxen twice a day with 30tabs M25.531 Denys 06/17/2017 - 375mg food Sylvia Toney 10/25/2017 Tablets Meloxicam 1 by mouth every 60tabs America Duran, 06/29/2016 - 15mg day prn M.D. 04/02/2017 Tablets Meloxicam 1 by mouth once a 90tabs M25.562 Sarthak Sears 11/14/2015 - 7.5mg day Sylvia Anderson 01/31/2016 Tablets Knee Support as needed dx: 2ungentry M25.562 Carolina Copeland, 11/14/2015 - W/Stabilizerpad/Miguel Angel m25.562 M.D. 04/02/2017 prene/X-Large Misc Oxybutynin Chloride 1 po qd 90tabs N39.46 Meagan Bynum, 08/29/2015 - ER M.D. 10/21/2016 10mg Tablets ER 24HR Oxybutynin Chloride 1 po qd 90tabs N39.46 Meagan Bynum, 03/01/2015 - ER M.D. 08/29/2015 10mg Tablets ER 24HR Calcium And Meagan Bynum, 07/06/2013 - Vitamind D M.D. 01/18/2017 Supplement Oxybutynin Chloride 1 po qd 90tabs 788.33 Meagan Bynum, 07/06/2013 - ER M.D. 02/20/2014 10mg Tablets ER 24HR Vesicare 1 po qd 30tabs 788.33 Meagan Bynum, 02/24/2013 - 10mg M.D. 07/06/2013 Tablets Lisinopril 1 by mouth in the 90tabs I10 Carolina Copeland, 02/07/2013 - 20mg morning M.D. 11/23/2017 Tablets Vitamin D3 Maximum t tab every day for 8caps Meagan Bynum, 12/27/2012 - Strength 8 weeks M.D. 07/06/2013 5000Unit Capsules Lisinopril 1 po qd 30tabs 401.9 Meagan Bynum, 12/23/2012 - 10mg M.D. 02/07/2013 Tablets Lisinopril 1 po qd 30tabs 401.9 Meagan Bynum, 11/25/2012 - 5mg M.D. 12/23/2012 Tablets Oxybutynin Chloride 1 po qd 90tabs 788.33 Meagan Bynum, 11/25/2012 - ER M.D. 02/07/2013 10mg Tablets ER 24HR Atenolol 1 tab by mouth at 90tabs I10 Carolina Copeland, 10/06/2012 - 50mg bedtime M.D. 11/23/2017 Tablets Metronidazole 1 applicator 1tube 616.10 Meagan Bynum, 10/06/2012 - Vaginal intravaginal for 7 M.D. 11/11/2012 0.75% Gel days Tessalon Perles 1 tab po 3x per day 30caps 786.2 Meagan Bynum, 2012 - M.D. 11/11/2012 100mg Capsules Atenolol 1 po qd 90tabs 401.9 Meagan Bynum, 09/22/2012 - 25mg M.D. 10/06/2012 Tablets Fluconazole 1 po then repeat x1 2tabs 616.10 Meagan Bynum, 09/22/2012 - 150mg in 1week M.D. 11/11/2012 Tablets Ra Acetaminophen Unknown - Unknown 325mg Tablets Multaq 1 by mouth twice a 20tabs Angelito S. - 400mg day Luis Antonio, DO [facility] 11/25/2017 Tablets Polyethylene Glycol take 17 gram Unknown - 3350 Dissolved In Water 07/06/2018 3350NF Packet by mouth once daily Hold For Loose Sto Furosemide take 1 tablet by Unknown - 20mg mouth once daily 12/01/2017 Tablets Omeprazole take 1 capsule by 90caps Angelito S. - 40mg mouth once daily DO Luis Antonio [facility] 12/21/[address] Potassium Chloride not taking-----1 by 30tabs Angelito S. - [place] ER mouth wednesday, Luis Antonio, DO [facility] 05/24/2018 20Meq wednesday and Tablets ER wednesday with furosemide, prn Fluconazole one by mouth may Unknown - 150mg repeat in 3 days as 11/23/2017 Tablets needed Sulfamethoxazole/Tr 1 by mouth twice a Unknown - imethoprim DS day 10/28/2017 800-160mg Tablets Acetaminophen 1-2 tabs 3x a day Unknown - 500mg as needed 02/08/2017 Tablets Ketoconazole apply twice a day Unknown - 2% 02/08/2017 Cream Oxybutynin Chloride 1 by mouth every Unknown - ER day 02/08/2017 10mg Tablets ER 24HR Benzonatate take 1 capsule by Unknown - 100mg mouth three times a 02/08/2017 Capsules day if needed for cough Calcium 1 tablet po daily Unknown - 600mg 07/06/2018 Vitamin D3 2 tablet po daily Unknown - 07/06/2018 1000Units Meloxicam once daily with 30tabs America Duran, - 15mg food M.D. 06/29/2016 Tablets Fluconazole Unknown - 150mg 08/29/2015 Tablets Ibuprofen prn Unknown - 200mg 11/20/2015 Capsules Vitamin B 12 1 po occasional Unknown - 04/02/2017 Avelox 1 po qd 90tabs Unknown - 400mg 11/11/2012 Tablets Omeprazole 1 po qd 90caps Unknown - 20mg 11/11/[address] Metronidazole 1 po tid 30tabs Unknown - 500mg 11/11/2012 Tablets Medications Administered in Office Medication SIG Qnty Indications Ordering Provider Date Shingrix pharmacy Unknown 07/06/2018 administered Injection Inj, Regadenoson, 0.1 MG Angelito Salmon, DO FAC 02/03/2017 Injection Technetium TC 99M Angelito Salmon, DO FAC 02/03/2017 Tetrofosmin, Per Unit Dose Up To 40 Millicuries Injection Depomedrol 40MG America Duran M.D. 06/29/2016 Injection Depomedrol 40MG America Duran M.D. 06/29/2016 Injection Depomedrol 40MG America Duran M.D. 01/10/2016 Injection Immunizations CPT Code Status Date Vaccine Lot # [id number] Given 01/05/2018 Influenza Virus Vaccine, Quadrivalent, Split, [id number] Preservative Free [id number] Given 10/21/2016 Tdap - Tetanus/Diptheria/Acellular Pertussis [id number] Given 10/21/2016 Pneumococcal Conjugate Vaccine 13 Valent For [id number] Intramuscular Use 66173 Given 03/01/2015 Influenza Virus Vaccine, Quadrivalent, Split, [id number] Preservative Free 33915 Given 02/20/2014 Flu Vaccine Split Virus Preservative Free For [id number] Indiv 3Yr Older 26405 Given 07/06/2013 Pneumonia Vaccine [id number] 41297 Given 02/24/2013 Flu Vaccine Split Virus Preservative Free For 1345 4p Indiv 3Yr Older Vital Signs Date Vital Result Comment 09/05/2018 10:00am Height 61 inches 5'1" Weight 174.12 lb Heart Rate 52 /min BP Systolic 157 mmHg BP Diastolic 75 mmHg Body Temperature 96.7 F O2 % BldC Oximetry 97 % BMI (Body Mass Index) 32.9 kg/m2 07/19/2018 8:05am Height 61 inches 5'1" Weight 174.00 lb w/o shoes BP Systolic Sitting 135 mmHg Lue reg cuff BP Diastolic Sitting 85 mmHg Lue reg cuff BP Systolic Standing 125 mmHg Lue reg cuff BP Diastolic Standing 75 mmHg Lue reg cuff Respiratory Rate 15 /min BMI (Body Mass Index) 32.9 kg/m2 07/06/2018 8:49am Height 61 inches 5'1" Weight 173.00 lb Heart Rate 62 /min BP Systolic Sitting 137 mmHg BP Diastolic Sitting 74 mmHg O2 % BldC Oximetry 97 % BMI (Body Mass Index) 32.7 kg/m2 07/01/2018 8:47am Height 61 inches 5'1" Weight 174.00 lb Heart Rate 66 /min BP Systolic Sitting 120 mmHg Lue Rg Cuff BP Diastolic Sitting 82 mmHg Lue Rg Cuff Respiratory Rate 16 /min O2 % BldC Oximetry 96 % Ra BMI (Body Mass Index) 32.9 kg/m2 03/02/2018 2:18pm Height 61 inches 5'1" Heart Rate 76 /min Respiratory Rate 12 /min Body Temperature 98.4 F Pain Level 0 02/16/2018 1:04pm Height 61 inches 5'1" Weight 169.00 lb Heart Rate 69 /min BP Systolic 133 mmHg BP Diastolic 70 mmHg Body Temperature 96.9 F Pain Level 0 BMI (Body Mass Index) 31.9 kg/m2 02/15/2018 9:46am Height 61 inches 5'1" Weight 169.00 lb Heart Rate 50 /min BP Systolic 125 mmHg BP Diastolic 70 mmHg BP Systolic Sitting 125 mmHg LA reg cuff BP Diastolic Sitting 70 mmHg LA reg cuff BP Systolic Standing 120 mmHg LA reg cuff BP Diastolic Standing 65 mmHg LA reg cuff O2 % BldC Oximetry 97 % BMI (Body Mass Index) 31.9 kg/m2 Ejection Fraction 50-55% 12/16/2016 echo 02/08/2018 9:40am Height 61 inches 5'1" Weight 174.00 lb Heart Rate 52 /min Respiratory Rate 16 /min Body Temperature 96.9 F Pain Level 0 BMI (Body Mass Index) 32.9 kg/m2 02/01/2018 9:55am Height 61 inches 5'1" Weight 174.00 lb Heart Rate 64 /min Respiratory Rate 15 /min Body Temperature 99.1 F Pain Level 2 BMI (Body Mass Index) 32.9 kg/m2 01/28/2018 9:57am Heart Rate 60 /min BP Systolic 128 mmHg BP Diastolic 78 mmHg Respiratory Rate 18 /min Pain Level 3 01/05/2018 10:45am Height 61 inches 5'1" Weight 172.00 lb Heart Rate 52 /min BP Systolic Sitting 124 mmHg BP Diastolic Sitting 82 mmHg O2 % BldC Oximetry 97 % BMI (Body Mass Index) 32.5 kg/m2 01/05/2018 9:41am Height 61 inches 5'1" Weight 172.00 lb Heart Rate 60 /min BP Systolic Sitting 128 mmHg BP Diastolic Sitting 68 mmHg Respiratory Rate 16 /min BMI (Body Mass Index) 32.5 kg/m2 12/29/2017 4:01pm Heart Rate 50 /min BP Systolic 118 mmHg L arm , reg cuff BP Diastolic 70 mmHg L arm , reg cuff Respiratory Rate 18 /min 12/21/2017 9:47am Height 60.2 inches 5'0.20" Weight 171.00 lb Heart Rate 52 /min BP Systolic Sitting 140 mmHg Lue lg cuff BP Diastolic Sitting 72 mmHg Lue lg cuff BP Systolic Standing 148 mmHg Lue reg cuff BP Diastolic Standing 70 mmHg Lue reg cuff BMI (Body Mass Index) 33.2 kg/m2 Ejection Fraction 50-55% Echo 12/16/17 12/09/2017 10:12am Height 60.2 inches 5'0.20" Heart Rate 78 /min BP Systolic Sitting 140 mmHg BP Diastolic Sitting 76 mmHg Pain Level 0 12/01/2017 1:54pm Height 60.2 inches 5'0.20" Weight 173.00 lb [...] kg/m2 Ejection Fraction 50-55% 12/16/2016 echo 11/23/2017 8:24am Height 60.2 inches 5'0.20" Weight 170.00 lb Heart Rate 64 /min BP Systolic Sitting 130 mmHg BP Diastolic Sitting 76 mmHg O2 % BldC Oximetry 99 % BMI (Body Mass Index) 33.0 kg/m2 10/25/2017 9:02am Height 60.2 inches 5'0.20" Weight 171.00 lb Heart Rate 43 /min BP Systolic Sitting 124 mmHg BP Diastolic Sitting 70 mmHg O2 % BldC Oximetry 96 % BMI (Body Mass Index) 33.2 kg/m2 10/13/2017 8:06am Height 61 inches 5'1" Weight 176.25 lb Heart Rate 48 /min BP Systolic Sitting 178 mmHg Rue reg cuff BP Diastolic Sitting 110 mmHg Rue reg cuff BP Systolic Recheck 154 mmHg Rue lg cuff BP Diastolic Recheck 90 mmHg Rue lg cuff Respiratory Rate 14 /min O2 % BldC Oximetry 96 % On Ra BMI (Body Mass Index) 33.3 kg/m2 06/17/2017 10:02am Height 61 inches 5'1" Weight 173.12 lb Heart Rate 51 /min BP Systolic Sitting 150 mmHg BP Diastolic Sitting 90 mmHg O2 % BldC Oximetry 97 % BMI (Body Mass Index) 32.7 kg/m2 06/09/2017 11:10am Height 61 inches 5'1" Weight 175.50 lb no shoes Heart Rate 84 /min BP Systolic Sitting 166 mmHg Lue reg cuff BP Diastolic Sitting 100 mmHg Lue reg cuff Respiratory Rate 20 /min O2 % BldC Oximetry 96 % On Ra BMI (Body Mass Index) 33.2 kg/m2 04/02/2017 9:12am Height 61 inches 5'1" Weight 179.12 lb no shoes Heart Rate 58 /min BP Systolic Sitting 158 mmHg Rue reg cuff BP Diastolic Sitting 80 mmHg Rue reg cuff Respiratory Rate 16 /min O2 % BldC Oximetry 96 % On Ra BMI (Body Mass Index) 33.8 kg/m2 02/09/2017 7:48am Height 61 inches 5'1" Weight 171.00 lb Heart Rate 64 /min BP Systolic Sitting 116 mmHg BP Diastolic Sitting 80 mmHg Respiratory Rate 14 /min BMI (Body Mass Index) 32.3 kg/m2 Neck Circumference in inches 14 01/19/2017 9:32am Height 60 inches 5'0" Weight 171.00 lb [...] Ejection Fraction 50-55% date 12/16/16 ECHO 10/21/2016 9:07am Height 60 inches 5'0" Weight 171.38 lb Heart Rate 50 /min BP Systolic 138 mmHg BP Diastolic 82 mmHg Body Temperature 98.2 F O2 % BldC Oximetry 99 % BMI (Body Mass Index) 33.5 kg/m2 10/02/2016 10:18am Height 60.5 inches 5'0.50" Weight 168.00 lb Heart Rate 59 /min BP Systolic 159 mmHg BP Diastolic 82 mmHg Pain Level 2 BMI (Body Mass Index) 32.3 kg/m2 07/29/2016 10:18am Height 60.5 inches 5'0.50" Weight 168.00 lb Heart Rate 50 /min BP Systolic 150 mmHg BP Diastolic 66 mmHg Body Temperature 97.2 F BMI (Body Mass Index) 32.3 kg/m2 06/29/2016 10:34am Height 60.5 inches 5'0.50" Weight 168.00 lb Heart Rate 64 /min BP Systolic 128 mmHg BP Diastolic 86 mmHg Respiratory Rate 16 /min Pain Level 5 BMI (Body Mass Index) 32.3 kg/m2 01/31/2016 11:03am Height 60.5 inches 5'0.50" Weight 173.00 lb Pain Level 4 BMI (Body Mass Index) 33.2 kg/m2 01/10/2016 9:00am Height 60.5 inches 5'0.50" Weight 173.00 lb Pain Level 7 BMI (Body Mass Index) 33.2 kg/m2 12/09/2015 8:34am Height 60.5 inches 5'0.50" Weight 173.00 lb Heart Rate 60 /min BP Systolic Sitting 116 mmHg BP Diastolic Sitting 66 mmHg Respiratory Rate 16 /min Pain Level 4 BMI (Body Mass Index) 33.2 kg/m2 11/20/2015 2:12pm Weight 168.50 lb Heart Rate 61 /min BP Systolic 130 mmHg BP Diastolic 72 mmHg Body Temperature 97.6 F O2 % BldC Oximetry 97 % 11/14/2015 8:49am Weight 171.75 lb Heart Rate 51 /min BP Systolic 120 mmHg BP Diastolic 70 mmHg Body Temperature 97.4 F O2 % BldC Oximetry 98 % 08/29/2015 8:32am Weight 169.00 lb Heart Rate 49 /min BP Systolic Sitting 150 mmHg BP Diastolic Sitting 80 mmHg Body Temperature 97.4 F O2 % BldC Oximetry 97 % 03/01/2015 2:33pm Height 60 inches 5'0" Weight 166.00 lb Heart Rate 55 /min BP Systolic 132 mmHg 172/98 on recheck BP Diastolic 90 mmHg 172/98 on recheck Body Temperature 97.2 F O2 % BldC Oximetry 97 % BMI (Body Mass Index) 32.4 kg/m2 08/21/2014 3:58pm Weight 170.00 lb Heart Rate 57 /min BP Systolic Sitting 138 mmHg BP Diastolic Sitting 88 mmHg Body Temperature 97.6 F O2 % BldC Oximetry 98 % 02/20/2014 1:48pm Height 59.5 inches 4'11.50" Weight 162.00 lb Heart Rate 64 /min BP Systolic Sitting 112 mmHg BP Diastolic Sitting 66 mmHg Body Temperature 98.7 F BMI (Body Mass Index) 32.2 kg/m2 12/19/2013 4:04pm Weight 160.50 lb Heart Rate 60 /min BP Systolic Sitting 136 mmHg BP Diastolic Sitting 80 mmHg 10/24/2013 3:34pm Weight 160.00 lb Heart Rate 66 /min BP Systolic Sitting 130 mmHg BP Diastolic Sitting 80 mmHg 07/06/2013 3:12pm Weight 166.00 lb Heart Rate 58 /min BP Systolic Sitting 150 mmHg BP Diastolic Sitting 89 mmHg Body Temperature 97.5 F 04/27/2013 11:07am Weight 165.00 lb Heart Rate 59 /min BP Systolic Sitting 132 mmHg BP Diastolic Sitting 70 mmHg 02/24/2013 8:49am Weight 168.00 lb Heart Rate 60 /min BP Systolic Sitting 186 mmHg BP Diastolic Sitting 85 mmHg BP Systolic Standing 152 mmHg BP Diastolic Standing 83 mmHg 02/07/2013 4:34pm Weight 165.00 lb Heart Rate 66 /min BP Systolic Sitting 175 mmHg BP Diastolic Sitting 81 mmHg 12/29/2012 1:08pm Height 60.5 inches 5'0.50" Weight 164.00 lb Heart Rate 54 /min BP Systolic Sitting 140 mmHg BP Diastolic Sitting 76 mmHg BMI (Body Mass Index) 31.5 kg/m2 12/23/2012 8:28am Height 60.5 inches 5'0.50" Weight 163.00 lb Heart Rate 76 /min BP Systolic Sitting 151 mmHg BP Diastolic Sitting 77 mmHg BMI (Body Mass Index) 31.3 kg/m2 11/25/2012 8:54am Weight 165.75 lb Heart Rate 50 /min BP Systolic 158 mmHg BP Diastolic 79 mmHg 11/11/2012 8:46am Weight 164.00 lb Heart Rate 50 /min BP Systolic Sitting 153 mmHg BP Diastolic Sitting 74 mmHg BP Systolic Standing 142 mmHg BP Diastolic Standing 86 mmHg 10/06/2012 9:42am Weight 167.00 lb Heart Rate 56 /min BP Systolic Sitting 190 mmHg BP Diastolic Sitting 82 mmHg 09/22/2012 11:19am Height 60.5 inches 5'0.50" Weight 165.75 lb Heart Rate 61 /min BP Systolic Sitting 170 mmHg BP Diastolic Sitting 80 mmHg Body Temperature 98.8 F BMI (Body Mass Index) 31.8 kg/m2 Results Test Date Facility Test Result H/L Range Note Urine Culture And 08/24/2018 [facility] Urine Culture SEE RESULT 1, [address] [place] [address] [phone] CBC Auto Diff 08/24/2018 [facility] White Blood 6.7 10^3/uL N 3.5-10.[address] [place] [address] [phone] Red Blood Count 5.25 10^6/uL High 3.70-4.87 Hemoglobin 13.1 g/dL N 12.0-16.0 Hematocrit 41 % N 35-47 Mean Corpuscular Volume 78 fL Low 80-97 Mean Corpuscular Hemoglobin 25 pg Low 27-31 Mean Corpuscular HGB Conc 32 g/dL N 31-36 Red Cell Distribution Width 15 % N 10.5-15 Platelet Count 202 10^3/uL N 150-450 Mean Platelet Volume 10.3 fL N 7.4-10.4 Abs Neutrophils 3.5 10^3/uL N 1.5-7.7 Abs Lymphocytes 1.9 10^3/uL N 1.0-4.8 Abs Monocytes 0.7 10^3/uL N 0-0.8 Abs Eosinophils 0.4 10^3/uL N 0-0.6 Abs Basophils 0.1 10^3/uL N 0-0.2 Abs Nucleated RBC 0.0 10^3/uL Granulocyte % 53.2 % Lymphocyte % 29.1 % Monocyte % 11.0 % Eosinophil % 5.3 % Basophil % 1.4 % Nucleated Red Blood Cells % 0.1 Comp Metabolic Panel 08/24/2018 [facility] Sodium 141 mmol/L N 135-[address] [place] [address] [phone] Potassium 4.7 mmol/L N 3.5-5.0 Chloride 105 mmol/L N 101-111 Co2 Carbon Dioxide 30 mmol/L N 22-32 Anion Gap 6 mmol/L N 2-11 Calcium 9.4 mg/dL N 8.6-10.3 Albumin 4.3 g/dL N 3.2-5.2 Total Bilirubin 0.30 mg/dL N 0.2-1.0 Glucose 125 mg/dL High 70-100 Blood Urea Nitrogen 18 mg/dL N 6-24 Creatinine 0.90 mg/dL N 0.51-0.95 BUN/Creatinine Ratio 20.0 N 8-20 Total Protein 8.0 g/dL N 6.4-8.9 Globulin 3.7 g/dL N 2-4 Albumin/Globulin Ratio 1.2 N 1-3 Alkaline Phosphatase 82 U/L N 34-104 Alt 27 U/L N 7-52 Ast 26 U/L N 13-39 Egfr Non- 61.0 >60 Egfr 73.9 >60 3 Poc Urinalysis 08/24/2018 [facility] Poc Glucose, Negative Negative [address] [place] [address] [phone] Poc Bilirubin, Urine Negative Negative Poc Ketone, Urine Negative Negative Poc Specific Parker, Urine 1.020 N 1.010-1.030 Poc Blood, Urine 2+ Abnormal Negative Poc pH, Urine 6.5 N 5-9 Poc Protein, Urine 1+ Abnormal Negative Poc Urobilinogen, Urine 0.2 Negative Poc Nitrite, Urine Negative Negative Poc Leukocytes, Urine Negative Negative Poc Color, Urine Yellow Poc Clarity, Urine Clear 4 Laboratory test 08/24/2018 [facility] Point of 110 mg/dL High 70-100 [address] [place] [address] [phone] CBC Auto Diff 07/07/2018 [facility] White Blood 8.2 N 3.5- 10.[address] Count 10^3/[place] [address] [phone] Red Blood Count 5.01 10^6/uL High 3.70-4.87 Hemoglobin 12.4 g/dL N 12.0-16.0 Hematocrit 39 % N 33-41 Mean Corpuscular Volume 77 fL Low 80-97 Mean Corpuscular Hemoglobin 25 pg Low 27-31 Mean Corpuscular HGB Conc 32 g/dL N 31-36 Red Cell Distribution Width 14 % N 10.5-15 Platelet Count 198 10^3/uL N 150-450 Mean Platelet Volume 9.5 fL N 7.4-10.4 Abs Neutrophils 5.4 10^3/uL N 1.5-7.7 Abs Lymphocytes 1.4 10^3/uL N 1.0-4.8 Abs Monocytes 0.9 10^3/uL High 0-0.8 Abs Eosinophils 0.3 10^3/uL N 0-0.6 Abs Basophils 0.1 10^3/uL N 0-0.2 Abs Nucleated RBC 0 10^3/uL Granulocyte % 66.5 % Lymphocyte % 17.4 % Monocyte % 11.1 % Eosinophil % 4.3 % Basophil % 0.7 % Nucleated Red Blood Cells % 0 Basic Metabolic Panel 07/07/2018 [facility] Sodium 140 mmol/L N 135-[address] [place] [address] [phone] Chloride 105 mmol/L N 101-111 Co2 Carbon Dioxide 29 mmol/L N 22-32 Glucose 94 mg/dL N 70-100 Blood Urea Nitrogen 17 mg/dL N 6-24 Creatinine 1.01 mg/dL High 0.51-0.95 BUN/Creatinine Ratio 16.8 N 8-20 Calcium 9.0 mg/dL N 8.6-10.3 Egfr Non- 53.4 >60 Egfr 64.7 >60 6 Potassium 5.1 mmol/L High 3.5-5.0 Anion Gap 6 mmol/L N 2-11 Laboratory test 11/25/2017 [facility] Potassium 4.8 mmol/L N 3.5-5.[address] [place] [address] [phone] Laboratory test 11/16/2017 [facility] Point of Care 199 mg/dL High 70-100 [address] [place] [address] [phone] CBC Auto Diff 11/16/2017 [facility] White Blood 6.9 N 3.5- 10.[address] Count 10^3/[place] [address] [phone] Red Blood Count 4.51 10^6/uL N 4.00-5.40 Hemoglobin 11.2 g/dL Low 12.0-16.0 Hematocrit 35 % N 35-47 Mean Corpuscular Volume 78 fL Low 80-97 Mean Corpuscular Hemoglobin 25 pg Low 27-31 Mean Corpuscular HGB Conc 32 g/dL N 31-36 Red Cell Distribution Width 15 % N 10.5-15 Platelet Count 165 10^3/uL N 150-450 Mean Platelet Volume 9.9 um3 N 7.4-10.4 Abs Neutrophils 3.7 10^3/uL N 1.5-7.7 Abs Lymphocytes 2.2 10^3/uL N 1.0-4.8 Abs Monocytes 0.8 10^3/uL N 0-0.8 Abs Eosinophils 0.2 10^3/uL N 0-0.6 Abs Basophils 0.1 10^3/uL N 0-0.2 Abs Nucleated RBC 0 10^3/uL Granulocyte % 53.2 % N 38-83 Lymphocyte % 31.4 % N 25-47 Monocyte % 11.4 % High 0-7 Eosinophil % 3.1 % N 0-6 Basophil % 0.9 % N 0-2 Nucleated Red Blood Cells % 0.1 Laboratory test 11/16/2017 [facility] Lactic Acid 1.2 mmol/L N 0.5-2.0 8 finding [address] [place] [address] [phone] Comp Metabolic 11/16/2017 [facility] Sodium 137 mmol/L N 135- 145 Panel [address] [place] [address] [phone] Potassium 4.6 mmol/L N 3.5-5.0 Chloride 104 mmol/L N 101-111 Co2 Carbon Dioxide 28 mmol/L N 22-32 Anion Gap 5 mmol/L N 2-11 Glucose 107 mg/dL High 70-100 Blood Urea Nitrogen 20 mg/dL N 6-24 Creatinine 1.11 mg/dL High 0.51-0.95 BUN/Creatinine Ratio 18.0 N 8-20 Calcium 9.0 mg/dL N 8.6-10.3 Total Protein 7.4 g/dL N 6.4-8.9 Albumin 3.8 g/dL N 3.2-5.2 Globulin 3.6 g/dL N 2-4 Albumin/Globulin Ratio 1.1 N 1-3 Total Bilirubin 0.50 mg/dL N 0.2-1.0 Alkaline Phosphatase 62 U/L N 34-104 Alt 25 U/L N 7-52 Ast 28 U/L N 13-39 Egfr Non- 47.9 >60 Egfr 58.0 >60 9 Laboratory test 11/16/2017 [facility] Magnesium 2.1 mg/dL N 1.9-2.[address] [place] [address] [phone] Creatine Kinase(CK) 41 U/L N 10-223 Troponin-I (TnI) 0.01 ng/mL <0.04 TSH (Thyroid Stim Horm) 5.36 mcIU/mL N 0.34-5.60 Urinalysis Profile 11/16/2017 [facility] Urine Color Yellow 101 [place] [address] [phone] Urine Appearance Clear Urine Specific Parker 1.016 N 1.010-1.030 Urine pH 6.0 N 5-9 Urine Urobilinogen Negative Negative Urine Ketones Negative Negative Urine Protein 2+(100 mg/dL) Abnormal Negative Urine Leukocytes Negative Negative Urine Blood Negative Negative Urine Nitrite Negative Negative Urine Bilirubin Negative Negative Urine Glucose Negative Negative Urine White Blood Cell Trace(0-5/hpf) Absent Urine Red Blood Cell 1+(3-5/hpf) Abnormal Absent Urine Bacteria Absent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 fibrillation FACC D64.9 Anemia, unspecified I10 Essential (primary) hypertension E66.8 Other obesity N18.9 Chronic kidney disease, unspecified G47.33 Obstructive sleep apnea (adult) (pediatric) Office Visit 11/23/2017 8:30a [facility] Internal [place] I48.0 Paroxysmal atrial Linda Copeland M.D. fibrillation [place] I49.5 Sick sinus syndrome I50.31 Acute diastolic (congestive) heart failure E87.6 Hypokalemia K29.00 Acute gastritis without bleeding K59.03 Drug induced constipation Office Visit 11/20/2017 [facility] Kiersten I48.91 Unspecified atrial 11:30a Assockeiry M.D. fibrillation Hospitalists I49.5 Sick sinus syndrome I50.30 Unspecified diastolic (congestive) heart failure D50.9 Iron deficiency anemia, unspecified K25.9 Gastric ulcer, unsp as acute or chronic, w/o hemor or perf I10 Essential (primary) hypertension M54.5 Low back pain E78.5 Hyperlipidemia, unspecified Office Visit 11/19/2017 11:30a [facility] Kiersten I48.0 Paroxysmal atrial Asskeiry caicedo M.D. fibrillation Hospitalists I49.5 Sick sinus syndrome I50.20 Unspecified systolic (congestive) heart failure D64.9 Anemia, unspecified N18.9 Chronic kidney disease, unspecified I10 Essential (primary) hypertension Office Visit 11/18/2017 11:30a [facility] Kiersten I48.0 Paroxysmal atrial Assoc,ekiry Richards M.D. fibrillation Hospitalists I49.5 Sick sinus syndrome I50.31 Acute diastolic (congestive) heart failure D64.9 Anemia, unspecified N18.9 Chronic kidney disease, unspecified I10 Essential (primary) hypertension G47.33 Obstructive sleep apnea (adult) (pediatric) Office Visit 11/17/2017 11:29a [facility] Kiersten I49.5 Sick sinus Assoc,keiry Richards M.D. syndrome Hospitalists I48.0 Paroxysmal atrial fibrillation I50.20 Unspecified systolic (congestive) heart failure N17.9 Acute kidney failure, unspecified I10 Essential (primary) hypertension G47.33 Obstructive sleep apnea (adult) (pediatric) Office Visit 11/17/2017 1:06p [facility] Marcy Gonzalez, I48.0 Paroxysmal atrial Of Kalin Ward fibrillation I49.5 Sick sinus syndrome I50.31 Acute diastolic (congestive) heart failure I10 Essential (primary) hypertension Office Visit 11/16/2017 [facility] Francisco I48.91 Unspecified 11:28a Assoc,keiry Martinez N.PMaryellen atrial Hospitalists fibrillation I50.9 Heart failure, unspecified I10 Essential (primary) hypertension M54.5 Low back pain E78.5 Hyperlipidemia, unspecified G47.33 Obstructive sleep apnea (adult) (pediatric) Office Visit 10/25/2017 9:10a [facility] Internal [place] Copeland, Z00.00 [facility] - M.D. 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 hypertension [address] E78.2 Mixed hyperlipidemia M25.531 Pain in right wrist Office Visit 06/09/2017 Pulmonology And Tati G47.33 Obstructive sleep 11:00a Sleep Services Of NAOMI Garcia RN, apnea (adult) [facility]- (pediatric) Z68.33 Body mass index (BMI) 33.0-33.9, adult Office Visit 04/02/2017 Pulmonology And Tati G47.33 Obstructive sleep 9:00a Sleep Services Of NAOMI Garcia RN, apnea (adult) [facility]- (pediatric) G47.14 Hypersomnia due to medical condition Office Visit 02/09/2017 Pulmonology And Ksenia R06.83 Snoring 8:00a Sleep Services Of MD Chanel [facility] Office Visit 01/19/2017 [facility] Angelito SMaryellen I35.1 Nonrheumatic aortic 9:00a Of [facility] Salmon, DO (valve) FACC insufficiency I10 Essential (primary) hypertension R07.9 Chest pain, unspecified I34.0 Nonrheumatic mitral (valve) insufficiency E78.5 Hyperlipidemia, unspecified Office Visit 10/21/2016 8:50a [facility] Internal [place] Z00.01 Encounter for Linda Copeland M.D. general adult [facility] medical exam w abnormal findings I10 Essential (primary) hypertension Z23 Encounter for immunization E78.2 Mixed hyperlipidemia Z12.31 Encntr screen mammogram for malignant neoplasm of breast R94.31 Abnormal electrocardiogram [ECG] [EKG] G47.30 Sleep apnea, unspecified Z86.19 Personal history of other infectious and parasitic diseases M85.89 Oth disrd of bone density and structure, multiple sites Office Visit 10/02/2016 9:30a [facility] Duran, M25.561 Pain in right Of C.M.A. M.D. knee M25.562 Pain in left knee M25.462 Effusion, left knee M25.461 Effusion, right knee M17.0 Bilateral primary osteoarthritis of knee Office Visit 07/29/2016 10:15a [facility] Duran, M25.561 Pain in right Of C.M.A. M.D. knee M25.562 Pain in left knee M25.462 Effusion, left knee M25.461 Effusion, right knee M17.0 Bilateral primary osteoarthritis of knee Office Visit 06/29/2016 10:30a [facility] Duran, M25.561 Pain in right Of C.M.A. M.D. knee M25.562 Pain in left knee M25.462 Effusion, left knee M25.461 Effusion, right knee M17.0 Bilateral primary osteoarthritis of knee Office Visit 01/31/2016 [facility] M17.12 Unilateral primary 11:00a Services Of Sylvia Duran osteoarthritis, left C.M.A. knee M25.562 Pain in left knee M25.462 Effusion, left knee Office Visit 12/09/2015 [facility] Duran, M17.12 Unilateral primary 8:30a Services Of Sylvia osteoarthritis, left C.M.A. knee Office Visit 11/20/2015 [facility] Internal [place] M25.562 Pain in left knee 2:00p Linda Copeland M.D. Office Visit 11/14/2015 [facility] Internal Meagan M25.562 Pain in left knee 8:40a Linda Bynum M.D. Office Visit 08/29/2015 [facility] Internal Meagan I10 Essential (primary) 7:40a Linda Bynum M.D. hypertension N39.46 Mixed incontinence E78.2 Mixed hyperlipidemia Office Visit 08/21/2014 4:00p Kalin Internal Meagan Bynum, 401.9 Hypertension Unspec Medicine Sylvia 724.2 Lumbago 919.1 Injury Superficial Abrasion Oth Mult Unspec Infected Office Visit 12/19/2013 4:00p [facility] Internal Meagan Bynum, 401.9 Hypertension Unspec Medicine MMaryellenDMaryellen 272.2 Hyperlipidemia Mixed 268.9 Vitamin D Deficiency Unspec Office Visit 10/24/2013 3:40p Clinical Education Specialist Internal Meagan Bynum 401.9 Hypertension Unspec Medicine Sylvia 272.2 Hyperlipidemia Mixed 268.9 Vitamin D Deficiency Unspec 724.2 Lumbago Office Visit 07/06/2013 3:00p Kalin Internal Meagan Bynum 272.2 Hyperlipidemia Mixed Medicine Sylvia 401.9 Hypertension Unspec V03.82 Streptococcus Pneumoniae Vaccination Spec Other Office Visit 04/27/2013 11:00a [facility] Internal Meagan Bynum 401.9 Hypertension Unspec Medicine M.DMaryellen 272.2 Hyperlipidemia Mixed 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 Eczemtous Office Visit 02/24/2013 8:40a [facility] Internal Meagan Bynum, 401.9 Hypertension Unspec Medicine M.DMaryellen 272.2 Hyperlipidemia Mixed 788.33 Incontinence Mixed (Male) (Female) V76.19 Screening Breast Exam Malignant Neoplasms Other 627.9 Menopausal & Postmenopausal Disorder Unspec V04.81 Need For Prophylactic Vaccination & Inoculation/Influenza Office Visit 02/07/2013 4:00p [facility] Internal Meagan Bynum, 401.9 Hypertension Unspec Medicine M.DMaryellen 728.71 Fibromatosis Plantar Fascia Office Visit 12/29/2012 1:00p [facility] Internal Megaan V72.81 Examination Medicine Sylvia Bynum Preoperative Cardiovascular V72.81 Examination Preoperative Cardiovascular 401.9 Hypertension Unspec 401.9 Hypertension Unspec 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 786.2 Cough 272.2 Hyperlipidemia Mixed Office Visit 11/25/2012 8:40a [facility] Internal Meagan Bynum, 401.9 Hypertension Unspec Medicine M.DMaryellen 368.12 Visual Loss Transient 788.33 Incontinence Mixed (Male) (Female) Office Visit 11/11/2012 8:40a [facility] Internal Meagan Bynum, 401.9 Hypertension Unspec Medicine M.DMaryellen 728.71 Fibromatosis Plantar Fascia Office Visit 10/06/2012 9:40a [facility] Internal Meagan Bynum, 401.9 Hypertension Unspec Medicine M.J Luis 786.2 Cough 616.10 Vaginitis & Vulvovaginitis Unspec Office Visit 09/22/2012 11:20a [facility] Internal Meagan Bynum, 599.0 UTI Urinary Tract Medicine Sylvia Infection Site Not Spec 728.71 Fibromatosis Plantar Fascia 401.9 Hypertension Unspec 535.50 Gastritis & Gastroduodenitis Unspec W/O Hemorrhage 070.54 Hepatitis C Viral Chronic W/O Hepatic Coma 616.10 Vaginitis & Vulvovaginitis Unspec Plan of Treatment Future Appointment(s):10/11/2018 9:40 am - Angelito Salmon DO FACC at [facility]11/02/2018 9:10 am - [place] Copeland M.D. at [facility] Internal Medicine - [id number]/13/2019 - Sarthak Anderson M.D.R42 Dizziness and giddinessComments:Conv Care eval 5/ with fatigue, feeling hot; eval then (-) and pt feeling better now. Pt reports feeling lightheaded then, but no sx now. No orthostatic sx, and pt with no other acute cardiac or neuro c/o. HRs noted to be low on her Rx, but no sx previously. Holter in July with no A- fib noted. Observation advisedFollow up:prn if any recurrent sx [id number] Essential (primary) hypertensionComments:Previous office BPs ok, but up a bit today. No recent home BPs and regular checks advised
[2018-09-21 12:17] VITALS: BP 144/69
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
== END 2018-09-21 14:06 | disposition home or self-care (01) ==
LOC: UCEAST 11:06
DX: S60.221A Contusion of right hand, initial encounter (principal); M25.561 Pain in right knee; R60.0 Localized edema; V89.2XXA Person injured in unspecified motor-vehicle accident, traffic, initial encounter; Y92.9 Unspecified place or not applicable
CPT/HCPCS: 99211; G0463

== ENCOUNTER 2018-10-15 17:35 | Emergency (ER) | payer MEDICARE, OTHER ==
--- OUTSIDE RECORDS SUMMARY | 2018-10-15 17:44 | XMS REPORT | Continuity of Care Document ---
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 K29.00 Acute 10:50a Alexis Copeland M.D. 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 I48.0 Paroxysmal atrial Of Special Procedures Technologist Salmon, DO fibrillation FACC I50.32 Chronic diastolic (congestive) heart failure I10 Essential (primary) hypertension D64.9 Anemia, unspecified E66.8 Other obesity N18.9 Chronic kidney disease, unspecified G47.33 Obstructive sleep apnea (adult) (pediatric) Z87.11 Personal history of peptic ulcer disease Office Visit 12/01/2017 2:20p [facility] [place] [facility] Angelito S. I48.0 Paroxysmal atrial Of Special Procedures Technologist Salmon, DO fibrillation FACC D64.9 Anemia, unspecified I10 Essential (primary) hypertension E66.8 Other obesity N18.9 Chronic kidney disease, unspecified G47.33 Obstructive sleep apnea (adult) (pediatric) Office Visit 11/23/2017 Kary [facility] Internal [place] I48.0 Paroxysmal atrial 8:30a Alexis Copeland M.D. fibrillation I49.5 Sick sinus syndrome I50.31 Acute diastolic (congestive) heart failure E87.6 Hypokalemia K29.00 Acute gastritis without bleeding K59.03 Drug induced constipation Office Visit 11/20/2017 [facility] I48.91 Unspecified atrial 11:30a Assoc,keiry Richards M.D. fibrillation Hospitalists I49.5 Sick sinus syndrome I50.30 Unspecified diastolic (congestive) heart failure D50.9 Iron deficiency anemia, unspecified K25.9 Gastric ulcer, unsp as acute or chronic, w/o hemor or perf I10 Essential (primary) hypertension M54.5 Low back pain E78.5 Hyperlipidemia, unspecified Office Visit 11/19/2017 11:30a [facility] Kiersten I48.0 Paroxysmal atrial Assoc,keiry Richards M.D. fibrillation Hospitalists I49.5 Sick sinus syndrome I50.20 Unspecified systolic (congestive) heart failure D64.9 Anemia, unspecified N18.9 Chronic kidney disease, unspecified I10 Essential (primary) hypertension Office Visit 11/18/2017 11:30a [facility] Kiersten I48.0 Paroxysmal atrial Assoc,keiry Richards M.D. fibrillation Hospitalists I49.5 Sick sinus syndrome I50.31 Acute diastolic (congestive) heart failure D64.9 Anemia, unspecified N18.9 Chronic kidney disease, unspecified I10 Essential (primary) hypertension G47.33 Obstructive sleep apnea (adult) (pediatric) Office Visit 11/17/2017 11:29a [facility] Kiersten I49.5 Sick sinus Assoc,keiry Richards M.D. syndrome Hospitalists I48.0 Paroxysmal atrial fibrillation I50.20 Unspecified systolic (congestive) heart failure N17.9 Acute kidney failure, unspecified I10 Essential (primary) hypertension G47.33 Obstructive sleep apnea (adult) (pediatric) Office Visit 11/17/2017 1:06p [facility] Marcy Gonzalez, I48.0 Paroxysmal atrial Of Kalin Ward fibrillation I49.5 Sick sinus syndrome I50.31 Acute diastolic (congestive) heart failure I10 Essential (primary) hypertension Office Visit 11/16/2017 [facility] Francisco I48.91 Unspecified 11:28a Assoc,keiry Martinez N.P. atrial Hospitalists fibrillation I50.9 Heart failure, unspecified I10 Essential (primary) hypertension M54.5 Low back pain E78.5 Hyperlipidemia, unspecified G47.33 Obstructive sleep apnea (adult) (pediatric) Office Visit 10/25/2017 Kary [facility] Internal [place] Z00.00 Encntr for 9:10a Alexis Copeland M.D. general adult medical exam w/o abnormal findings I10 Essential (primary) hypertension E78.2 Mixed hyperlipidemia Z12.31 Encntr screen mammogram for malignant neoplasm of breast R53.83 Other fatigue R05 Cough M85.89 Oth disrd of bone density and structure, multiple sites L02.91 Cutaneous abscess, unspecified Office Visit 10/13/2017 Pulmonology And Tati G47.33 Obstructive sleep 8:15a Sleep Services Of NAOMI Garcia RN, apnea (adult) [facility] SECTION 8 PROPERTY MANAGER-BC (pediatric) E66.9 Obesity, unspecified Z68.33 Body mass index (BMI) 33.0-33.9, adult Office Visit 06/17/2017 10:00a [facility] Internal Brushton Pachjonellera, I10 Essential (primary) Medicine Steve Ward hypertension [address] E78.2 Mixed hyperlipidemia M25.531 Pain in right wrist Office Visit 06/09/2017 Pulmonology And Tati G47.33 Obstructive sleep 11:00a Sleep Services Of NAOMI Garcia RN, apnea (adult) [facility] SECTION 8 PROPERTY MANAGER-BC (pediatric) Z68.33 Body mass index (BMI) 33.0-33.9, adult Office Visit 04/02/2017 Pulmonology And Tati G47.33 Obstructive sleep 9:00a Sleep Services Of NAOMI Garcia RN, apnea (adult) [facility] SECTION 8 PROPERTY MANAGER-BC (pediatric) G47.14 Hypersomnia due to medical condition Office Visit 02/09/2017 Pulmonology And Ksenia R06.83 Snoring 8:00a Sleep Services Of MD Chanel [facility] Office Visit 01/19/2017 [place] [facility] Angelito S. I35.1 Nonrheumatic aortic 9:00a Of [facility] Luis Antonio DO (valve) FACC insufficiency I10 Essential (primary) hypertension R07.9 Chest pain, unspecified I34.0 Nonrheumatic mitral (valve) insufficiency E78.5 Hyperlipidemia, unspecified Office Visit 10/21/2016 DoNotUse [facility] Internal [place] Z00.01 Encounter for 8:50a Alexis Copeland M.D. general adult medical exam w abnormal findings I10 Essential [...] primary osteoarthritis of knee Office Visit 01/31/2016 Angy Cross M17.12 Unilateral primary 11:00a Services Lorenza Duran M.D. osteoarthritis, left C.M.A. knee M25.562 Pain in left knee M25.462 Effusion, left knee Office Visit 12/09/2015 Orthopedic Ameirca Duran, M17.12 Unilateral primary 8:30a Services Lorenza Ward osteoarthritis, left C.M.A. knee Office Visit 11/20/2015 [facility] Internal [place] M25.562 Pain in left knee 2:00p Linda Copeland M.D. Office Visit 11/14/2015 [facility] Internal Meagan M25.562 Pain in left knee 8:40a Linda Bynum M.D. Office Visit 08/29/2015 [facility] Internal Meagan I10 Essential (primary) 7:40a Linda Bynum M.D. hypertension N39.46 Mixed incontinence E78.2 Mixed hyperlipidemia Office Visit 08/21/2014 4:00p [facility] Internal Meagan Bynum, 401.9 Hypertension Unspec Medicine - M.D. Ccmob 724.2 Lumbago 919.1 Injury Superficial Abrasion Oth Mult Unspec Infected Office Visit 12/19/2013 4:00p [facility] Internal Meagan Bynum, 401.9 Hypertension Unspec Medicine - M.D. Ccmob 272.2 Hyperlipidemia Mixed 268.9 Vitamin D Deficiency Unspec Office Visit 10/24/2013 3:40p [facility] Internal Meagan Bynum, 401.9 Hypertension Unspec Medicine - M.D. Ccmob 272.2 Hyperlipidemia Mixed 268.9 Vitamin D Deficiency Unspec 724.2 Lumbago Office Visit 07/06/2013 3:00p [facility] Internal Meagan Bynum, 272.2 Hyperlipidemia Mixed Medicine - M.D. Ccmob 401.9 Hypertension Unspec V03.82 Streptococcus Pneumoniae Vaccination Spec Other Office Visit 04/27/2013 11:00a [facility] Internal Meagan Bynum, 401.9 Hypertension Unspec Medicine - M.D. Ccmob 272.2 Hyperlipidemia Mixed 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 Eczemtous Office Visit 02/24/2013 8:40a [facility] Internal Meagan Bynum, 401.9 Hypertension Unspec Medicine - M.D. Ccmob 272.2 Hyperlipidemia Mixed 788.33 Incontinence Mixed (Male) (Female) V76.19 Screening Breast Exam Malignant Neoplasms Other 627.9 Menopausal & Postmenopausal Disorder Unspec V04.81 Need For Prophylactic Vaccination & Inoculation/Influenza Office Visit 02/07/2013 4:00p [facility] Internal Meagan Bynum, 401.9 Hypertension Unspec Medicine - M.DMaryellen Ccmob 728.71 Fibromatosis Plantar Fascia Office Visit 12/29/2012 1:00p [facility] Internal Meagan V72.81 Examination Linda Bynum M.D. 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 Ccmob 728.71 Fibromatosis Plantar Fascia Office Visit 10/06/2012 9:40a [facility] Internal Meagan Bynum, 401.9 Hypertension Unspec Medicine - M.D. Ccmob 786.2 Cough 616.10 Vaginitis & Vulvovaginitis Unspec Office Visit 09/22/2012 11:20a [facility] Internal Meagan Bynum, 599.0 U[facility] Infection Site Not Spec 728.71 Fibromatosis Plantar Fascia 401.9 Hypertension Unspec 535.50 Gastritis & Gastroduodenitis Unspec W/O Hemorrhage 070.54 Hepatitis C Viral Chronic W/O Hepatic Coma 616.10 Vaginitis & Vulvovaginitis Unspec Plan of Treatment Future Appointment(s):11/02/2018 9:10 am - [place] Copelnad M.D. at [facility] - Angelito Salmon DO [id number] Dizziness and giddinessNew Orders:[facility], Ordered: Follow up:after [id number] Paroxysmal atrial [id number] Essential ( primary) [id number] Personal history of peptic ulcer ntbohthG06.32 Chronic diastolic (congestive) heart fdhoezfU71.9 Chronic kidney disease, unspecified
[2018-10-15 17:59] VITALS: BP 148/88
--- NOTE | 2018-10-15 18:59 | UC ---
General HPI - HPI Summary HPI Summary: 1. ABOUT 1 MONTH OF POSTERIOR RIGHT LEG PAIN. STATES IT WAS INITIALLY IN THE CALF BUT NOW IS MOSTLY BEHIND THE KNEE AND POSTERIOR THIGH. STATES THE PAIN FEELS DEEP. IS HAVING DIFFICULTY AMBULATING DUE TO THE DISCOMFORT. SHE DENIES ANY TRAUMA. NO HISTORY OF BLOOD CLOT. 2. ALSO COMPLAINING OF PAIN IN HER TAILBONE SINCE FALLING BACKWAR[place] IN HER [place]ARD[place] TODAY. PATIENT LANDED ON HER BACKSIDE ON THE STONE PAVEMENT. STATES SHE LANDED SO HARD THAT SHE ALSO HAS VAGINAL PAIN AND MAYBE SOME PINK DISCHARGE. IS WORRIED ABOUT HER BLADDER "EXPLODING". - History of Current Complaint Chief Complaint: UCBackPain Stated Complaint: LEG PAIN Time Seen by Provider: 10/15/18 17:52 Hx Obtained From: Patient, Family/Alto Singer - DAUGHTER Onset/Duration: Gradual Onset, Lasting Weeks, Still Present Timing: Constant Onset Severity: Moderate Current Severity: Moderate Pain Intensity: 6 - Allergy/Home Medications Allergies/Adverse Reactions: Allergies Allergy/AdvReac Type Severity Reaction Status Date / Time No Known Allergies Allergy Verified 08/24/18 16:17 PMH/Surg Hx/FS Hx/Imm Hx Endocrine History: Dyslipidemia Cardiovascular History: Hypertension, Atrial Fibrillation Other History Of: Hepatitis C - Surgical History Surgical History: Yes Surgery Procedure, Year, and Place: CATARACT - Family History Known Family History: Positive: None Negative: Hypertension - Social History Alcohol Use: None Substance Use Type: None Smoking Status (MU): Never Smoked Tobacco - Immunization History Most Recent Influenza Vaccination: unknown Most Recent Tetanus Shot: UTD Most Recent Pneumonia Vaccination: 2011 Review of Systems All Other Systems Reviewed And Are Negative: Yes Constitutional: Positive: Negative Skin: Positive: Bruising Respiratory: Positive: Negative Cardiovascular: Positive: Negative Gastrointestinal: Positive: Negative Genitourinary: Positive: Vaginal/Penile Burning, Vaginal/Penile Discharge. Negative: Dysuria, Frequency, Urgency Musculoskeletal: Positive: Decreased ROM, Edema, Myalgia Physical Exam Triage Information Reviewed: Yes Appearance: Well-Appearing, No Pain Distress, Well-Nourished Vital Signs: Initial Vital Signs Temp 97.7 F 10/15/18 17:51 Pulse 60 10/15/18 17:51 Resp 18 10/15/18 17:51 BP 148/88 10/15/18 17:51 Pulse Ox 100 10/15/18 17:51 Laboratory Tests 10/15/18 18:54 POC Urine Color Light yellow POC Urine Clarity Clear POC Urine pH 6.5 POC Ur Specif [place] 1.010 POC Urine Protein Negative POC Ur Glucose (UA) Negative POC Urine Ketones Negative POC Urine Blood 2+ A POC Urine Nitrite Negative POC Urine Bilirubin Negative POC Urine Urobilinogen 0.2 POC U Leukocyte Esteras Negative Vital Signs Reviewed: Yes Eyes: Positive: Conjunctiva Clear ENT: Positive: Hearing grossly normal Neck: Positive: Supple Respiratory: Positive: No respiratory distress, No accessory muscle use Cardiovascular: Positive: Pulses Normal Abdomen Description: Positive: Soft Pelvic Exam: Positive: External Exam Normal. Negative: Blood, Cervicitis, Discharge, Lesions Musculoskeletal: Positive: Edema @ - CALF CIRCUMFERENCE RIGHT: 42CM, LEFT 40.5CM , Other: - NO CALF TENDERNESS. NEG HOMANS Neurological: Positive: Alert Psychological: Positive: Age Appropriate Behavior Skin: Positive: Other - BRUISING PERINEAL AREA Diagnostics - Radiology SACCRUM/COCCYX XRAYS Radiology Interpretation Completed By: ED Physician Summary of Radiographic Findings: NO ACUTE INJURY Course/Dx - Course Course Of Treatment: TO [facility] [place] [facility] [place] FOR FURTHER EVALUATION OF HER LEG PAIN. NEED TO RULE OUT BLOOD CLOT. ON EXAM PATIENT WAS DISCOVERED TO HAVE PERINEAL BRUISING WHICH SHE STATES IS FROM HER FALL EARLIER TODAY. PATIENT IS TO THE SAME MAN FOR 60 YEARS. THEY DO STILL HAVE SEX. SHE STATES MOST RECENTLY 2-3 MONTHS AGO. SHE DENIES ANY ABUSE. X-RAY OF SACRUM/COCCYX OBTAINED. NOTHING ACUTE ON MY INITIAL INTERPRETATION. RADIOLOGY READ IS PENDING. SHE WAS FOUND TO HAVE SOME MICROSCOPIC HEMATURIA. THIS MAY SIMPLY BE DUE TO HER RECENT FALL. SHE HAS NO URINARY SYMPTOMS. NO CVA TENDERNESS. ADVISED TO FOLLOW-UP WITH HER PCP ON NOVEMBER 02 SCHEDULED AND HAVE A REPEAT TEST AT THAT TIME. I HAVE ALSO RECOMMENDED THAT SHE FOLLOW UP WITH A INSURANCE ACTUARY IF SHE MAY BE EXPERIENCING URINARY LEAK WITH LEAKAGE FROM BLADDER PROLAPSE. PT SPEAKS [place]. CONVERSATION FACILITATED BY PT'S DAUGHTER AND HIDES INSPECTOR TELEPHONE. - Diagnoses Provider Diagnosis: Leg pain, right, Hematuria, Coccyx contusion, Vaginitis - Physician Notifications Discussed Patient Care With: Parveen Guerrero - TO [facility] [place] PRIVATE CAR Time Discussed With Above Provider: 19:50 Instructed by Provider To: MD Will See In ED Discharge - Sign-Out/Discharge Documenting (check all that apply): Patient Departure All imaging exams completed and their final reports reviewed: Yes - Discharge Plan Condition: Stable Disposition: HOME-RECOMMEND TO ED Patient Education Materials: Coccyx Injury (ED), Vaginitis (ED), Hematuria (ED) , Leg Pain (ED) Referrals: Carolina Copeland MD [Primary Care Provider] - (KEEP APPT ON NOVEMBER 02, 2018) Lillian Joshua MD [Medical Doctor] - 1 Week Additional Instructions: 1. LEG PAIN UNCLEAR ETIOLOGY OF YOUR RIGHT LEG DISCOMFORT. GIVEN THE DESCRIPTION OF YOUR SYMPTOMS I AM RECOMMENDING YOU GO DIRECTLY TO THE EMERGENCY ROOM TO FURTHER EVALUATE FOR A BLOOD CLOT. 2. HEMATURIA MICROSCOPIC BLOOD SEEN IN YOUR URINE TODAY. NO EVIDENCE OF URINARY INFECTION. THE BLOOD MAY SIMPLY BE DUE TO YOUR RECENT TRAUMA HOWEVER THIS NEEDS TO BE FOLLOWED UP. BE SURE TO REPEAT A URINE TEST AT YOUR DOCTOR'S APPOINTMENT ON NOVEMBER 02, 2018. 3. TAILBONE INJURY X-RAY DONE TODAY. OTHER THAN SOME DEGENERATIVE CHANGE NO ACUTE BONY INJURY ON MY INITIAL INTERPRETATION. WE WILL CALL YOU TODAY IF THE RADIOLOGY READ DIFFERS. AVOID SITTING ON HARD SURFACES. TYLENOL NEEDED FOR DISCOMFORT. 4. VAGINITIS/BLADDER PROLAPSE ON EXAM YOU MAY HAVE SOME MILD BLADDER PROLAPSE. THIS MAY BE CONTRIBUTING TO YOUR SYMPTOMS. SWABS TAKEN TO CHECK FOR GONORRHEA/CHLAMYDIA AND OTHER FORMS OF VAGINITIS. WE WILL CALL YOU WITH ANY ABNORMAL RESULTS. I RECOMMEND YOU FOLLOW-UP WITH A INSURANCE ACTUARY TO FURTHER EVALUATE YOUR SYMPTOMS. THE ER CAN ALSO FURTHER EVALUATE YOU FOR LOWER ABDOMINAL PRESSURE AFTER YOUR FALL TODAY. - Billing Disposition and Condition Condition: STABLE Disposition: Home-Recommend to ED
[2018-10-17 14:06] LABS: Trichomonas vaginalis Result Negative (Negative)
[2018-10-17 14:11] LABS: Neisseria gonorrhoeae (GC) RNA Negative (Negative)
== END 2018-10-15 19:50 | disposition home health service (06) ==
LOC: UCEAST 17:35
DX: M79.604 Pain in right leg (principal); R31.9 Hematuria, unspecified; S30.0XXA Contusion of lower back and pelvis, initial encounter; S33.2XXA Dislocation of sacroiliac and sacrococcygeal joint, initial encounter; W19.XXXA Unspecified fall, initial encounter; Y92.9 Unspecified place or not applicable; N76.0 Acute vaginitis
CPT/HCPCS: 72220; 81003; 87480; 87491; 87510; 87591; 87661; 99211; G0463

== ENCOUNTER 2018-10-15 21:08 | Emergency (ER) | payer MEDICARE, MEDICAID ==
--- NOTE | 2018-10-16 00:30 | ED ---
Lower Extremity - HPI Summary HPI Summary: This patient is a 78 year old F presenting [facility] accompanied by her daughter , acting as office services specialist, s/p fall while gardening today at 4:00pm with a chief complaint of generalized RLE pain that is worst at the posterior knee. Pain rated 7/10 in severity. Daughter reports acute on chronic hip pain. Daughter additionally reports a history of arthritis in the left knee, with relief from injections. Patient had previous imaging performed at Urgent Care. - History of Current Complaint Chief Complaint: EDFall Stated Complaint: FALL/BACK INJURY PER PT Time Seen by Provider: 10/15/18 23:09 Hx Obtained From: Patient Mechanism Of Injury: Fall From A Standing Position Onset of Pain: Immediate Pain Intensity: 7 Pain Scale Used: 0-10 Numeric Location: Is Diffuse Associated Signs And Symptoms: Positive: Knee Pain - Allergies/Home Medications Allergies/Adverse Reactions: Allergies Allergy/AdvReac Type Severity Reaction Status Date / Time No Known Allergies Allergy Verified 10/15/18 21:19 PMH/Surg Hx/FS Hx/Imm Hx Endocrine/Hematology History: Denies: Hx Diabetes, Hx Thyroid Disease Cardiovascular History: Reports: Hx Coronary Artery Disease - cholesterol control with meds, Hx Hypertension, Hx Valvular Heart Disease Denies: Hx Congestive Heart Failure, Hx Pacemaker/ICD Comment Only: Other Cardiovascular Problems/Disorders - VALVE ISSUES Respiratory History: Reports: Other Respiratory Problems/Disorders - pleurisy Denies: Hx Asthma, Hx Chronic Obstructive Pulmonary Disease (COPD) GI History: Reports: Other GI Disorders - frequent stools Denies: Hx Ulcer History: Denies: Hx Dialysis, Hx Renal Disease Musculoskeletal History: Reports: Hx Arthritis - ankles, lower back Denies: Hx Osteoporosis Sensory History: Reports: Hx Cataracts - bilateral, Hx Contacts or Glasses - reading Denies: Hx Hearing Aid Opthamlomology History: Reports: Hx Cataracts - bilateral, Hx Contacts or Glasses - reading Psychiatric History: Denies: Hx Panic Disorder - Cancer History Hx Chemotherapy: No Hx Radiation Therapy: No - Surgical History Surgery Procedure, Year, and Place: CATARACT Hx Anesthesia Reactions: No Infectious Disease History: Yes Infectious Disease History: Denies: Hx Clostridium Difficile, Hx Hepatitis, Hx Human Immunodeficiency Virus (HIV), Hx of Known/Suspected MRSA, Hx Shingles, Hx Tuberculosis, Hx Known/ Suspected VRE, Hx Known/Suspected VRSA, History Other Infectious Disease, Traveled Outside the [place] in Last 30 Days - Family History Known Family History: Negative: Hypertension - Social History Alcohol Use: None Substance Use Type: Reports: None Smoking Status (MU): Never Smoked Tobacco Review of Systems Negative: Fever Positive: Myalgia - RLE pain All Other Systems Reviewed And Are Negative: Yes Physical Exam - Summary Physical Exam Summary: Appearance: Well-appearing, Well-nourished, lying in bed comfortable Skin: Warm, dry, no obvious rash Eyes: sclera anicteric, no conjunctival pallor ENT: mucous membranes moist Neck: deferred Respiratory: No signs of respiratory distress Cardiovascular: Appears well perfused, pulses are nml Abdomen: deferred Musculoskeletal: Bilateral mild pitting edema, right knee mildly swollen and warm with some limitation in ROM Neurological: Awake and alert, mentation is normal, speech is fluent and appropriate Psychiatric: affect is normal, does not appear anxious or depressed Triage Information Reviewed: Yes Vital Signs On Initial Exam: Initial Vitals Temp Pulse Resp BP Pulse Ox 98.3 F 64 16 214/104 97 10/15/18 21:10 10/15/18 21:10 10/15/18 21:10 10/15/18 21:10 10/15/18 21:10 Vital Signs Reviewed: Yes Diagnostics - Vital Signs Vital Signs Temp Pulse Resp BP Pulse Ox 10/15/18 23:03 59 183/77 96 10/15/18 23:00 60 97 10/15/18 22:34 65 198/68 96 10/15/18 22:33 65 95 10/15/18 21:10 98.3 F 64 16 214/104 97 - Laboratory Lab Statement: Any lab studies that have been ordered have been reviewed, and results considered in the medical decision making process. - Additional Comments Diagnostic Additional Comments: Venous Doppler Study reveals, as per radiologist: No acute findings. No evidence of deep vein thrombosis. ED Physician has reviewed this report. Lower Extremity Course/Dx - Course Course Of Treatment: 78 year old F s/p fall while gardening today at 4:00pm with a chief complaint of generalized RLE pain that is worst at the posterior knee. Patient had previous imaging performed at Urgent Care. US is negative for DVT. Due to history of arthritis in the left knee, patient is instructed to follow up with an orthopedist the receive an injection. Patient and daughter are agreeable with this plan. - Diagnoses Provider Diagnoses: Arthritis of right knee Discharge - Sign-Out/Discharge Documenting (check all that apply): Patient Departure - discharge Patient Received Moderate/Deep Sedation with Procedure: No - Discharge Plan Condition: Good Disposition: HOME Patient Education Materials: Osteoarthritis (ED) Referrals: Carolina Copeland MD [Primary Care Provider] - Alex Burns MD [Medical Doctor] - Additional Instructions: The orthopedic doctor can see you in the office to do a knee injection, call on Wednesday. - Billing Disposition and Condition Condition: GOOD Disposition: Home - Attestation Statements Document Initiated by Scribe: Yes Documenting Scribe: Eladia Murray Provider For Whom Manuelibe is Documenting (Include Credential): Parveen Guerrero MD Scribe Attestation: IEladia, scribed for Parveen Guerrero MD on 10/18/18 at 0827. Scribe Documentation Reviewed: Yes Provider Attestation: The documentation as recorded by the [email or web address] accurately reflects the service I personally performed and the decisions made by me, Parveen Guerrero MD Status of Scribe Document: Viewed
[2018-10-16 00:41] VITALS: BP 144/62
== END 2018-10-16 00:49 | disposition home or self-care (01) ==
LOC: ED 21:08
DX: M17.11 Unilateral primary osteoarthritis, right knee (principal); I25.10 Atherosclerotic heart disease of native coronary artery without angina pectoris; I10 Essential (primary) hypertension; Z79.899 Other long term (current) drug therapy
CPT/HCPCS: 99281

== ENCOUNTER 2018-11-21 12:05 | Observation (INO) | payer MEDICARE, MEDICAID ==
[2018-11-21] MEDS ORDERED: NS 0.9% 1000 ML** 1,000 ML IV SCH (12:45)
[2018-11-21] MEDS ORDERED: ceFAZolin* 2 GM* ONE DOSE (Duplex) IVPB (13:00)
[2018-11-21] MEDS ORDERED: Diazepam TAB(*) 5 MG PO ONE (13:00)
[2018-11-21] MEDS ORDERED: ceFAZolin VIAL 1 GM in NS *SYRINGE * * 10 ML ONE (13:00)
[2018-11-21] MEDS ORDERED: ceFAZolin 2 GM in NS PREMIX(*) 2 GM/100 ML BAG IVPB ONE (13:00)
[2018-11-21] MEDS ORDERED: fentaNYL* 50 MCG/ML 2 ML VIAL (100 MCG VIAL) ONE (13:34)
[2018-11-21] MEDS ORDERED: Midazolam* 1 MG/ML 5 ML VIAL (5 MG) ONE (13:34)
[2018-11-21] MEDS ORDERED: Lidocaine 1% INJ* 10 MG/ML 30 ML SDV ONE (13:35)
[2018-11-21] MEDS ORDERED: oxyCODONE/Acetamin 5/325 MG* TAB PO PRN (15:03)
[2018-11-21] MEDS: Acetaminophen TAB* 325 MG PO PRN (20:01)
[2018-11-21] MEDS: ceFAZolin VIAL(*) 1 GM in NS 0.9% 50 ML* 50 ML IVPB SCH (20:50)
[2018-11-21] MEDS: Flecainide TAB* 100 MG PO SCH (20:54)
[2018-11-22] MEDS: ceFAZolin VIAL(*) 1 GM in NS 0.9% 50 ML* 50 ML IVPB SCH ×2 (05:51→12:47)
[2018-11-22] MEDS ORDERED: amLODIPine TAB* 5 MG PO SCH (09:00)
[2018-11-22] MEDS ORDERED: Metoprolol Succinate XL TAB* 25 MG PO SCH (09:00)
[2018-11-22] MEDS: Acetaminophen TAB* 325 MG PO PRN (09:34)
[2018-11-22] MEDS: Flecainide TAB* 100 MG PO SCH (09:39)
--- NOTE | 2018-11-22 12:27 | DS ---
CC: Dr. Carolina Copeland; Dr. Angelito Salmon DISCHARGE SUMMARY: DATE OF ADMISSION: 11/21/18 TENTATIVE DATE OF DISCHARGE: 11/22/18, pending no complications. ATTENDING PHYSICIAN: Dr. Dwain Collins.* (DICTATED BY JAMISON SIN NP) PRIMARY CARE PHYSICIAN: Dr. Carolina Copeland. PRIMARY INSOLE BUFFER: Dr. Angelito Salmon. ADMITTING DIAGNOSES: 1. Sick sinus syndrome, here for elective dual chamber permanent pacemaker placement. 2. History of paroxysmal atrial fibrillation, on flecainide and Eliquis therapy. 3. History of hypertension. 4. History of hyperlipidemia. DISCHARGE DIAGNOSES: 1. Sick sinus syndrome, status post dual chamber permanent pacemaker, 11/21/18 , with Dr. Dwain Collins. 2. Acute paroxysmal atrial fibrillation, on Eliquis and flecainide therapy. Eliquis is to be reinitiated the evening of 11/22/18. She has been in sinus rhythm. FERNANDO setting is on. 3. History of hypertension. The patient is to resume metoprolol and amlodipine therapy. 4. History of hyperlipidemia. The patient is on simvastatin therapy. PROCEDURES PERFORMED: The patient underwent successful dual-chamber pacemaker implantation by Dr. Dwain Collins on 11/21/18. Right ventricular lead pacing threshold was elevated on implant. Post implant, 11/22/18, unipolar right ventricular pacing threshold is 2.25 and bipolar is 2.75. The patient has a Medtronic dual-chamber pacemaker, model is [id number]. COMPLICATIONS: None thus far. Please note that the surgical procedure note is not dictated, thus refer to surgical procedure note once completed. The patient has andrew in situ. COURSE OF HOSPITAL STAY: This is a pleasant 78-year-old female patient who presented electively to [facility] on 11/21/18 for elective dual- chamber pacemaker implantation at the discretion of her primary shipping & receiving lead Dr. Angelito Salmon. She has a notable history of paroxysmal AFib, on Eliquis therapy. She had episodes of lightheadedness on 11/12/18 and 11/13/18, correlating with 3 to 4- second episodes of sinus pause. She had basic blood work done prior to implantation on 11/03/18. At that time sodium was 140, potassium 4.8, chloride 108, carbon dioxide 29, creatinine 0.81, glucose of 98. TSH 5.36. She underwent the above-mentioned procedure and post procedure was transferred to [address] [place] [address] where she has been monitored overnight. There have been no events on telemetry. She has remained in sinus rhythm. She was complaining of left axilla discomfort that did improve with administration of Tylenol. Her daughter is at her bedside. Her device check today was normal. She is A sensed , V paced. Her underlying rhythm is sinus. She is atrially paced 3.3% of the time, ventricularly paced 0.5% of the time. She did have elevated right ventricular threshold. However, this is consistent with RV thresholds at implant. Unipolar vector is better, thus she was maintained in unipolar node. FERNANDO is on. There have been no complications. Chest x-ray this morning, preliminary read by Dr. Dwain Collins, does not reveal pneumothorax. Vital signs are stable. Most recent vital signs: Temperature was 98.4, pulse 66, respirations 16, oxygenation 96% on room air, blood pressure 146/62. She has been up and ambulating the halls with no difficulty. Device site was inspected today. There was no evidence of pocket hematoma, no inflammation. Edges are well approximated with andrew in situ. I personally reviewed wound care and left upper extremity restrictions with both the patient and her daughter. They are aware that the patient will need to go home on Keflex 250 mg p.o. t.i.d. for a total of 3 days. DISCHARGE BLOOD WORK TO BE OBTAINED: None. CONDITION AT DISCHARGE: Stable, to be discharged home. DISCHARGE MEDICATIONS: Include: 1. Eliquis 5 mg p.o. b.i.d., first dose 11/22/18 at 1800. 2. Amlodipine 5 mg a day. 3. Keflex 250 mg p.o. t.i.d. 4. Flecainide 50 mg p.o. b.i.d. 5. Metoprolol 25 mg a day. 6. Tylenol as needed. FOLLOWUP APPOINTMENTS: 1. The patient is to follow up with PCP, Dr. Copeland, in 7 to 10 days. 2. Follow up with Dr. Angelito Salmon, 11/30/18, at [address] Dwain Collins has personally seen and examined the patient, and agrees with the above assessment and plan. Please note, the final x-ray reading by radiologist was negative for pneumothorax. The patient is to be discharged home today. JAMISON SIN NP [id number]/[facility] #: [id number] [facility]
[2018-11-22 13:48] VITALS: BP 102/77
--- NOTE | 2018-11-22 20:51 | OP ---
CC: Dr. Angelito Salmon * DATE OF OPERATION: 11/21/18 - ROOM #433 DATE OF : 44. SURGEON: Dwain Collins MD. ANESTHESIA: Local anesthesia with conscious sedation. PRE-OP DIAGNOSIS: Sick sinus syndrome. POST-OP DIAGNOSIS: Sick sinus syndrome. OPERATIVE PROCEDURE: Dual chamber pacemaker implantation. ESTIMATED BLOOD LOSS: Nil. COMPLICATIONS: None. INDICATIONS: The patient is a 78-year-old female with a history of atrial fibrillation who has an event monitor in place. The patient was noted to have runs of tachycardia up to 120 beats per minute as well as significant bradycardia with heart rates down to 20 beats per minute. Dual chamber pacemaker implantation was recommended. DESCRIPTION OF PROCEDURE: The patient was brought to the procedure room in a fasting state. Informed consent had been obtained prior to the procedure. All labs were reviewed. The patient was placed supine on the procedure table. The left deltopectoral area was cleaned and draped in the usual fashion. 1% lidocaine was used for local anesthesia. Under ultrasound guidance, the axillary vein was entered via Seldinger technique and a guidewire was placed. A second guidewire was placed using the same technique. A 4-cm incision was made in the pectoral area. A blunt dissection was carried down to the pectoral fascia. A pocket was fashioned for the pacemaker. Over the first guidewire, a 7-Swazi sheath introducer was placed through which a right ventricular lead was advanced to the RV apex. The right ventricular lead is a Medtronic model 5076, serial number [id number] and had an R-wave sensitivity of 25, impedance 1288 ohms, threshold 2.2 volts at 0.5 msec. The ventricular lead was sutured to the pectoral fascia. Over the second guidewire, a 7-Swazi sheath introducer was placed through which a right atrial lead was advanced to the high right atrium. The right atrial lead was a Medtronic model 5076, serial number [id number] and had a P-wave sensitivity of 4.2, impedance 854 ohms, threshold 1.3 volts at 0.5 msec. The atrial lead was sutured to the pectoral fascia. The pocket was flushed. A generator was attached appropriately to the atrioventricular lead. The generator is a Medtronic model W1DR01 serial number [id number]. The device was placed in the pocket. The surgical incision was closed in three layers. The patient was returned to the holding area in stable condition. [id number]/[facility] #: [id number] MTDD
== END 2018-11-22 13:45 | disposition home or self-care (01) ==
LOC: CHICATH 12:05 → MEDTELE 15:56
PROVIDERS: ADMIT Specialist; ATTEND Specialist
DX: I48.0 Paroxysmal atrial fibrillation (principal); I49.5 Sick sinus syndrome; I10 Essential (primary) hypertension; I50.32 Chronic diastolic (congestive) heart failure; Z87.11 Personal history of peptic ulcer disease; E78.5 Hyperlipidemia, unspecified; Z79.01 Long term (current) use of anticoagulants; Z79.899 Other long term (current) drug therapy; I35.1 Nonrheumatic aortic (valve) insufficiency; R94.31 Abnormal electrocardiogram [ECG] [EKG]
CPT/HCPCS: 33208; 71045; 71046; 93005; 96365; 96366; 99156; 99157; A9270-GY; C1785; C1892; C1898; G0378; J0690; J2250; J3010

== ENCOUNTER 2019-11-17 07:54 | Observation (INO) ==
[~2019-11-17 07:54] MED LIST: Buffered Lidocaine 1% SYRIN 1 ml INTRADERM ONE; Lactated Ringers 1000 ml BAG 1,000 ML IV SCH
[2019-11-17] MEDS ORDERED: Midazolam 5 mg/5 ml VIAL 1 mg/ml 5 ml VIAL (5 mg) ONE (08:04)
[2019-11-17] MEDS ORDERED: fentaNYL 250 mcg/5 ml 50 MCG/ML 5 ml VIAL (250 MCG) ONE (08:04)
[2019-11-17] MEDS ORDERED: Lidocaine 2% PF 5 ML VIAL ONE (08:06)
[2019-11-17] MEDS ORDERED: EPHEDrine (Pressors) 50 MG/ML VIAL ONE (08:07)
[2019-11-17] MEDS ORDERED: Sterile Water for Inj 10 ML ONE (08:07)
[2019-11-17] MEDS ORDERED: Phenylephrine IV 10 MG/ML 1 ml VIAL ONE (08:08)
[2019-11-17] MEDS ORDERED: ceFAZolin 2 GM PREMIX 2 GM/50 ML BAG ONE (08:16)
[2019-11-17] MEDS ORDERED: Buffered Lidocaine 1% SYRIN 1 ml INTRADERM ONE (08:16)
[2019-11-17] MEDS ORDERED: Bupivacaine 0.5% SDV PF 30ML VIAL ONE (09:10)
[2019-11-17] MEDS ORDERED: ROPIVACAINE 5 MG/ML 30 ML BTL (0.5%) ONE ×2 (09:10→09:16)
[2019-11-17] MEDS ORDERED: Propofol 10 MG/ML 20 ML BTL ONE ×2 (10:48→11:08)
[2019-11-17] MEDS ORDERED: Ondansetron 4 mg VIAL 2 MG/ML 2 ml VIAL IV PRN ×2 (11:17→12:13)
[2019-11-17] MEDS ORDERED: Naloxone 0.4 mg VIAL 0.4 mg/ml 1 ml VIAL IV PRN (11:17)
[2019-11-17] MEDS ORDERED: Morphine 2 MG/ML SYRINGE IV PRN (12:13)
[2019-11-17] MEDS ORDERED: diPHENhydraMINE 25 mg TAB PO PRN (12:13)
[2019-11-17] MEDS ORDERED: Magnesium Hydroxide LIQ 30 ML UDC PO PRN (12:13)
[2019-11-17] MEDS ORDERED: Lactulose 30 ml UDC PO PRN (12:13)
[2019-11-17] MEDS ORDERED: Ondansetron ODT 4 mg TAB 4 MG TAB PO PRN (12:13)
[2019-11-17] MEDS ORDERED: diPHENhydraMINE IV 50 MG/ML 1 ml VIAL (BENADRYL) IV PRN (12:13)
[2019-11-17] MEDS ORDERED: oxyCODONE/Acetamin 5/325 mg TAB PO PRN ×2 (12:13)
[2019-11-17] MEDS: Lactated Ringers 1000 ml BAG 1,000 ML IV SCH (14:18)
[2019-11-17] MEDS: ceFAZolin 1 GM ADVAN 1 GM in NS 0.9% 50 ML 50 ML IVPB SCH (18:01)
[2019-11-17] MEDS ORDERED: CMCS: Simvastatin 10 mg TAB (NF) PO SCH (21:00)
[2019-11-17] MEDS: Magnesium Hydroxide LIQ 30 ML UDC PO SCH (21:46)
[2019-11-18] MEDS ORDERED: Polyethylene Glycol 3350 17 GM PACKET PO PRN (00:01)
[2019-11-18] MEDS: Lactated Ringers 1000 ml BAG 1,000 ML IV SCH (00:50)
[2019-11-18] MEDS: ceFAZolin 1 GM ADVAN 1 GM in NS 0.9% 50 ML 50 ML IVPB SCH ×2 (02:19→10:18)
[2019-11-18 06:20] LABS: Hematocrit 29 % (35-47); Hemoglobin 9.6 g/dL (12.0-16.0); Mean Platelet Volume 9.1 fL (7.4-10.4); Platelet Count 155 10^3/uL (150-450)
[2019-11-18 06:47] LABS: BUN/Creatinine Ratio 19.8 (8-20); Calcium 7.8 mg/dL (8.6-10.3); EGFR Non-African American 68.6 (>60); Potassium 4.3 mmol/L (3.5-5.0)
[2019-11-18] MEDS: Magnesium Hydroxide LIQ 30 ML UDC PO SCH (08:03)
[2019-11-18] MEDS ORDERED: Vitamin THERAPEUTIC TAB PO SCH (09:00)
[2019-11-18 11:38] VITALS: BP 122/52
== END 2019-11-18 15:00 | disposition home or self-care (01) ==
LOC: INTOOBSV 07:54 → AA 07:54 → SSU 14:15
PROVIDERS: ADMIT Orthopaedic Surgery Adult Reconstructive Orthopaedic Surgery; ATTEND Orthopaedic Surgery Adult Reconstructive Orthopaedic Surgery